=== PATIENT | male | born 1940 | race Caucasian/White ===

== ENCOUNTER 2017-06-22 05:31 | Inpatient (IN) | payer MEDICARE, OTHER ==
[2017-06-22] MEDS ORDERED: Nitroglycerin 2% Ointment 1 INCH/1 GM Packet ONE (06:48)
[2017-06-22 06:50] LABS: Prothrombin Time 13.1 SEC (12.0-14.7)
[2017-06-22 07:07] LABS: Anion Gap 15 mmol/L (10-20); BUN (Urea Nitrogen) 18 mg/dL (8.4-25.7); Calc. Creatinine Clearance 0 mL/min (70-130); Calcium 9.4 mg/dL (7.8-10.44); Carbon Dioxide 20 mmol/L (23-31); Chloride 105 mmol/L (98-107); Estimated GFR-MDRD 52; Glucose 149 mg/dL (83-110); Potassium 3.5 mmol/L (3.5-5.1); Sodium 136 mmol/L (136-145)
[2017-06-22 08:03] LABS: Troponin I 126.567 ng/mL (< 0.028)
[2017-06-22] MEDS ORDERED: Heparin 10,000 UNITS/ 10 ML VIAL SLOW IVP SCH (08:30)
[2017-06-22] MEDS ORDERED: Heparin 25,000 units/D5W 500 ML IVPB SCH (08:30)
[2017-06-22 08:58] LABS: Cardiac Risk 6.9 (Less than 4.5)
[2017-06-22] MEDS ORDERED: Sodium Chloride 0.9% 1,000 ML IV SCH (09:00)
[2017-06-22] MEDS ORDERED: Amiodarone HCl 150 MG in Dextrose 5% in Water 100 ML IVPB SCH ×2 (09:15)
[2017-06-22] MEDS ORDERED: Amiodarone In Dextrose 200 ML IVPB SCH (09:15)
--- NOTE | 2017-06-22 09:20 | HP ---
PRIMARY CARE PHYSICIAN: Dr. Betito Medina in [place]. REASON FOR ADMISSION: Transfer from [facility] after a STEMI. HISTORY OF PRESENT ILLNESS: A 76-year-old male with a history of hypertension, benign enlargement of prostate, gastroesophageal reflux disease who was transferred from [facility] for STEMI. This patient reports that about [id number] months ago he was experiencing epigastric discomfort on and off basis. His primary care physician was thinking that the patient has gastroesophageal reflux disease and he was instructed to take Nexium which he was taking on a regular basis, but the patient was not feeling any significant better. The day before yesterday the patient was having more indigestion in epigastric area which was intermittent and the patient has to stop working and he has to go home and rest for a period of time. Routine medication was not helping as well. The patient was feeling that something was wrong and the next day he made appointment with Dr. Betito Medina who prescribed another 2 medications as well as liquid Carafate. The patient only took those oral medicine, but he did not take any liquid Carafate and he was still not feeling normal. He went to sleep and around midnight he woke up and at that time he was feeling severe epigastric discomfort as well as palpitations and dizziness. He went to his other house by driving and he took Pepto-Bismol that did not improve his symptoms. He started feeling shortness of breath and that is why he decided to go to local emergency room. The patient was diagnosed with a STEMI in anteroseptal anterolateral wall. There was no cardiac cath facility and that is why patient was given TNK 50 mg IV push around 2:30 a.m. The patient was given DuoNeb therapy x2, morphine 2 mg , Zofran 8 mg, Lasix 40 mg, metoprolol 5 mg IV push, heparin bolus was given and subsequently heparin drip was started. The patient was also given some IV fluid. After this treatment, the patient was feeling better and he was transferred to our hospital. ER physician discussed with Cardiology and Cardiology recommended to admit under [facility] and they will consult. When I saw this patient, at that time he is feeling still a little bit epigastric discomfort and lower chest discomfort, but he is feeling subjectively better. He denies any pleurisy. He denies any orthopnea or dizziness. He denies any lower extremity edema. He denies any focal motor or sensory symptoms. He denies any fever, chills, flu-like illness. He denies any hemoptysis. He denies any bleeding from any site. He denies any melena or hematochezia. Today, he was also found with atrial fibrillation with RVR and the patient does not have any recall of having atrial fibrillation in past. REVIEW OF SYSTEMS: The following complete review of systems was negative, unless otherwise mentioned in the HPI or below: Constitutional: Weight loss or gain, ability to conduct usual activities. Skin: Rash, itching. Eyes: Double vision, pain. ENT/Mouth: Nose bleeding, neck stiffness, pain, tenderness. Cardiovascular: Palpitations, dyspnea on exertion, orthopnea. Respiratory: Shortness of breath, wheezing, cough, hemoptysis, fever or night sweats. Gastrointestinal: Poor appetite, abdominal pain, heartburn, nausea, vomiting, constipation, or diarrhea. Genitourinary: Urgency, frequency, dysuria, nocturia. Musculoskeletal: Pain, swelling. Neurologic/Psychiatric: Anxiety, depression. Allergy/Immunologic: Skin rash, bleeding tendency. Please see my HPI for pertinent positive and negative. All other review of systems reviewed and negative except as mentioned in the HPI. ALLERGIES: AMOXICILLIN. CURRENT HOME MEDICATIONS: Norvasc 5 mg p.o. daily, Mobic 15 mg daily, Bystolic 10 mg daily. Protonix 20 mg daily, Flomax 0.4 mg p.o. daily. PAST MEDICAL HISTORY: Osteoarthritis, hypertension, gastroesophageal reflux disease, benign enlargement of prostate, obesity. PAST SURGICAL HISTORY: Spinal surgery. PAST PSYCHIATRIC HISTORY: Reviewed and negative. SOCIAL HISTORY: The patient is and lives at home with his . No history of tobacco, alcohol or illicit drug abuse. FAMILY HISTORY: No strong family history of premature coronary artery disease, stroke or cancer. EMERGENCY ROOM COURSE: Patient was given DuoNeb therapy x2, morphine 2 mg IV push, Zofran 8 mg IV push, Lasix 40 mg IV push, metoprolol 5 mg IV push, TNK 50 mg IV push, heparin 4000 unit bolus and 1000 unit per hour IV fluid. The patient also received nitropatch in our emergency room. PHYSICAL EXAMINATION: VITAL SIGNS: Currently, blood pressure 187/117, pulse 105 irregular, respiratory rate 18, temperature 97.8, saturation 96% on 3 liter oxygen, weight 93.1 kilograms. GENERAL: The patient is currently alert, awake, no obvious acute distress. HEENT: Head; normocephalic, atraumatic. Eyes: Pupils round, reactive to light. Extraocular muscle intact. ENT: Oropharynx within normal limits. Moist mucous membranes. No oral lesion, no pharyngeal erythema, no exudate. NECK: Supple, no JVD, no thyromegaly, no carotid bruit, no jugular venous distention. LUNGS: Clear to auscultation without any rhonchi or rales. CARDIAC: S1, S2 irregular. Soft systolic murmur noted, no gallop, no rub. ABDOMEN: Obesity present. Bowel sounds present, nontender, nondistended. No organomegaly, no mass, no suprapubic tenderness. BACK: Unremarkable, no CVA tenderness. EXTREMITIES: Upper extremity passive movement of all joints are normal. Lower extremities: No edema. Good peripheral pulsation. SKIN: No skin rash. HEMATOLOGICAL: No lymphadenopathy. PSYCHIATRIC: Normal affect. SIGNIFICANT LABS: EKG showing atrial fibrillation with rapid ventricular response. [facility]. EKG showing ST elevation in anteroseptal leads. Chest x-ray at [place] showed cardiomegaly and pulmonary vascular congestion. Troponin I of 126.56. Sodium 136, potassium 3.5, chloride 105, carbon dioxide 20, anion gap 15, BUN 18, creatinine 1.34, glucose 149, calcium 9.4. INR 1.0. LFTs, alkaline phosphatase was 109, AST 37, ALT 39. Protein 9.2, albumin 4.5. WBC normal, hemoglobin normal, platelet count 239. ASSESSMENT AND PLAN: 1. Acute ST elevation myocardial infarction anteroseptal lead status post TNK and metoprolol 5 mg IV push. At this point, we will continue heparin drip. We will check lipid profile. Cardiology consulted. The patient will go for cardiac catheterization. We will admit him in CCU. We will closely monitor. We will also continue the nitropatch q.8 hourly and aspirin 325 mg p.o. daily. We will start Lipitor 80 mg p.o. at bedtime. Based on hemodynamics we will adjust blood pressure medication. 2. Atrial fibrillation with rapid ventricular response, currently rate is under control. The patient will need chronic anticoagulation therapy upon discharge. Echocardiography ordered. Cardiology consulted. The patient is already on heparin drip. We will monitor PTT as per protocol. 3. Chronic kidney disease stage 3. We will monitor renal function and avoid nephrotoxin agents. 4. Gastroesophageal reflux disease. We will continue Protonix 40 mg p.o. daily. 5. Hypertension. We will continue Bystolic 10 mg p.o. daily and Norvasc 5 mg p.o. daily if blood pressure permits. 6. Benign enlargement of prostate. We will continue Flomax 0.4 mg p.o. daily. 7. Deep venous thrombosis prophylaxis. The patient is already on heparin drip. 8. Gastrointestinal prophylaxis. The patient is already on Protonix therapy. 9. Code status: The patient is FULL CODE. The patient's is surrogate decision maker. 10. Dyslipidemia: start statin therapy. Disposition plan based on clinical course. We are expecting the patient's stay in hospital more than 2 midnights. Plan of care discussed with the patient and family member at bedside. MTDD
--- NOTE | 2017-06-22 09:27 | RAD ---
CHEST 1 VIEW: Date: 06/22/17 HISTORY: Chest pain. Dyspnea. FINDINGS: No comparison. The cardiac silhouette is magnified and upper limits of normal in size. Pulmonary vasculature is uppe r limits of normal and favored to account for mild parenchymal opacity scattered throughout each lung . No lobar consolidation or evidence of pneumothorax. Mediastinum is midline. Postoperative changes cervical spine. IMPRESSION: Borderline cardiomegaly and pulmonary vascular prominence. No florid edema is evident. POS: [facility]
[2017-06-22] MEDS ORDERED: HYDROcodone/Acetaminophen 5/325 mg Tablet PO PRN (09:30)
[2017-06-22] MEDS ORDERED: Acetaminophen 325 MG TAB PO PRN (09:30)
[2017-06-22] MEDS ORDERED: Artificial Tears 18 DROP/0.9 ML EA EYE PRN (09:30)
[2017-06-22] MEDS ORDERED: Ondansetron HCl/PF 4 MG/2 ML Vial IVP PRN (09:30)
[2017-06-22] MEDS ORDERED: Nitroglycerin 0.4 MG TAB (25 Tab Bottle) SL PRN ×3 (09:30→13:53)
[2017-06-22] MEDS ORDERED: hydrALAZINE 20 MG/ML VIAL SLOW IVP PRN (09:30)
[2017-06-22] MEDS ORDERED: Ondansetron ODT 4 MG TAB PO PRN (09:30)
[2017-06-22] MEDS ORDERED: Chloraseptic Spray 180 ml Bottle PO PRN (09:30)
[2017-06-22] MEDS ORDERED: Diabetic Tussin 200 MG/10 ML UDCUP PO PRN (09:30)
[2017-06-22] MEDS ORDERED: Milk Of Magnesia 30 ML UDCUP PO PRN (09:30)
[2017-06-22] MEDS ORDERED: Mag-Al 1200 mg/1200 mg/30 ML UDCUP PO PRN (09:30)
[2017-06-22] MEDS ORDERED: Eucerin (Mineral Oil/Petrolatum,White) 30 gm Jar TOP PRN (09:30)
[2017-06-22] MEDS ORDERED: Senokot 8.6 MG TAB PO PRN (09:30)
[2017-06-22] MEDS ORDERED: Loratadine 10 MG TAB PO PRN (09:30)
[2017-06-22] MEDS ORDERED: Sodium Chloride 0.65% Nasal 44 ML BOT EA NARE PRN (09:30)
[2017-06-22] MEDS ORDERED: Loperamide HCl 2 MG CAP PO PRN (09:30)
[2017-06-22 09:52] LABS: Hemoglobin 17.6 g/dL (14.0-18.0); Platelet Count 225 thou/uL (130-400)
[2017-06-22] MEDS: Amiodarone HCl 450 MG, Admixture Fee 1 EACH in Dextrose 5% in Water 250 ML IVPB SCH ×6 (10:29→17:25)
[2017-06-22 10:37] LABS: Troponin I 219.602 ng/mL (< 0.028)
[2017-06-22 11:48] LABS: Bilirubin Negative (Negative); Blood, Urine Moderate (Negative); Clarity CLEAR (Clear); Glucose, Urine (Dipstick) Negative (Negative); Leukocyte Negative (Negative); Nitrite Negative (Negative); Protein, Urine (Dipstick) 100 mg/dL (Neg-Trace); Specific Gravity, Urine 1.016 (1.002-1.036); Urobilinogen 0.2 mg/dL (0.2-1.0)
[2017-06-22 11:50] LABS: Bacteria/HPF None Seen HPF (None Seen); Hyaline Casts/LPF 7-10 HYALINE CAST LPF (0-3 Hyaline); Pathc Cast-AUWi Flag 2.16 (0-2.49); RBC/HPF 0-3 HPF (0-3); Squamous Epithelial 0-3 HPF (0-3)
[2017-06-22] MEDS: Nitroglycerin 2% Ointment 1 INCH/1 GM Packet TOP SCH ×2 (12:06→17:04)
[2017-06-22 12:07] LABS: PTT 34.3 SEC (22.9-36.1)
[2017-06-22] MEDS ORDERED: Heparin 10,000 UNITS/1 ML VIAL ONE (12:23)
[2017-06-22] MEDS ORDERED: Lidocaine 1% (PF) 30 ML VIAL ONE (12:24)
[2017-06-22] MEDS ORDERED: Midazolam HCl 2 mg/2 ml Vial ONE (12:58)
[2017-06-22] MEDS ORDERED: Fentanyl 250 MCG/5 ML VIAL ONE (12:58)
[2017-06-22] MEDS ORDERED: Iopamidol 370 76% 100 ML VIAL ONE (13:26)
[2017-06-22] MEDS ORDERED: Iopamidol 370 76% 50 ML VIAL FS ONE (13:26)
--- NOTE | 2017-06-22 13:51 | CON ---
DATE OF CONSULTATION: 06/22/2017 HISTORY: Rinku Fontaine is a 76-year-old white male who denies any previous cardiac problems. 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 He underwent stress testing and apparently this was normal. Over the last few weeks, he has begun to notice exertional chest pressure associated with shortness of breath and diaphoresis. These episodes would be relieved in 15 minutes with rest. They seem to be getting somewhat worse and he was seen by his primary physician and EKG was unremarkable. He was seen yesterday as well as approximately 1 week ago. Then, last night at approximately 7:00 p.m., he began to notice increasing shortness of breath as well as some chest pressure. This became progressively worse and ultimately he went to the emergency room in [place]. When he arrived there, he was extremely short of breath, very agitated, having difficulty talking due to shortness of breath. Apparently, chest x-ray revealed pulmonary edema, although I do not have that x-ray available. He was placed on oxygen, given DuoNebs, morphine 2 mg IV, Zofran 8 mg IV, Lasix 40 mg IV, metoprolol 5 mg IV, aspirin 324. His EKG revealed lateral infarction with [address] elevation in 1 L, V4 and V6 and 3 mm of elevation in V5. There is significant baseline artifact and so difficult to assess the exact amount of ST elevation. With this finding, Dr. Haley was consulted and due to the distance from [place] TNKase 50 mg given IV followed by heparin 4000 and a bolus 1000 units per hour drip. He was given sublingual nitroglycerin. At the present time, he states that his dyspnea and chest discomfort have improved. He was to be transferred by air; however, apparently, there was weather issue and so he was transferred by ground. It is of note that his blood pressure when he arrived in [place] was 220/118 and he was in atrial fibrillation with fast ventricular response. He continues to be in atrial fibrillation at the present time. PAST MEDICAL HISTORY: Hypertension. He states that he has been on cholesterol medication in the past and then he was told that he did not have high cholesterolaand the medicine was stopped. He denies any history of diabetes. He does have obstructive sleep apnea, GERD, diverticulosis, and benign prostatic hypertrophy. HOME MEDICATIONS: Include nebivolol unknown dose daily, Flomax 0.4 mg daily, and acetaminophen/hydrocodone p.r.n. ALLERGIES: PENICILLIN. OPERATIONS: Cataract surgery and neck surgery in 2017. SOCIAL HISTORY: He smoked two cigarettes up to 2 packs per day, but stopped 14 years ago. He occasionally drinks. He is a retired [employer] worker. FAMILY HISTORY: Negative for coronary artery disease. REVIEW OF SYSTEMS: Twelve point review of systems unremarkable. PHYSICAL EXAMINATION: VITAL SIGNS: Blood pressure 140/92, pulse of 110, atrial fibrillation on the monitor. HEENT: PERRL. NECK: Supple. LUNGS: Chest reveals crackles at the right base. CARDIAC: S1 and S2 are distant. No murmurs heard. There is no S3 or S4. Carotid upstrokes normal without bruits. ABDOMEN: Obese. Normal bowel sounds, no tenderness. EXTREMITIES: Revealed no clubbing, cyanosis or edema. NEUROLOGIC: Grossly intact. SKIN: Warm and dry. LABORATORY DATA: From [place], sodium 145, potassium 3.2, chloride 104, carbon dioxide 19, BUN 17.0, creatinine 1.5. AST and ALT are normal. CK 589. CK-MB 9.0. Troponin I 1.522. BNP 1130.6, hemoglobin 20.7, hematocrit 58.7, white count 17.77, platelets 239,000. D-dimer 0.75. IMPRESSION: 1. Anterolateral ST-elevation myocardial infarction. 2. Pulmonary edema. 3. Atrial fibrillation with fast ventricular response which he denies having any arrhythmias in the past. 4. Hypertension. 5. Questionable hypercholesterolemia. 6. Former smoker. 7. Obstructive sleep apnea. 8. Possible polycythemia. 9. Benign prostatic hypertrophy. 10. Diverticulosis. 11. Gastroesophageal reflux disease. 12. Renal insufficiency. PLAN: The situation was discussed with the patient and his . Echocardiogram will be performed to reassess left ventricular function. Chest x -ray will be repeated. It was recommended that probably later today to go to the geoscience laboratory technician. Risks of catheterization were discussed including , myocardial infarction, dye reaction, vascular injury, CVA, transfusion, limb loss, renal loss, etc. Also, risks of intervention with stent placement were discussed including , myocardial infarction, emergency CABG, restenosis, stent thrombosis, vessel perforation, etc. With atrial fibrillation and the possible need for long-term anticoagulation, I will place a bare-metal stent. LUIS
[2017-06-22] MEDS ORDERED: traMADol HCl 50 MG TAB PO PRN (13:53)
[2017-06-22] MEDS ORDERED: Acetaminophen/Codeine 30-300mg Tablet PO PRN ×2 (13:53)
[2017-06-22] MEDS ORDERED: Sodium Chloride 0.9% 200 ML IV SCH (14:00)
[2017-06-22] MEDS: Sodium Chloride 0.9% 1,000 ML IV SCH ×2 (14:42→17:28)
[2017-06-22] MEDS ORDERED: Furosemide 40 MG/4 ML VIAL SLOW IVP SCH (14:45)
--- NOTE | 2017-06-22 15:17 | CON ---
DATE OF CONSULTATION: 06/22/2017 HISTORY OF PRESENT ILLNESS: Mr. Fontaine is a 76-year-old gentleman, who has no previous cardiac hist ory that he actually states that he was evaluated in [place] by liquor bridge operator, who put him through num erous tests and told him he had a very healthy heart approximately 2 years ago. He has had exertiona l chest pressure and shortness of breath and diaphoresis recently. This has increased to the point o f where he could not breathe even talk yesterday evening and was brought to the [facility]. He was given TNK at that time and diuresed. He feels much better since he has been admitted. He is also in atrial fibrillation, currently on amiodarone drip. He underwent cardiac catheterization with known severe 3-vessel disease. His ejection fraction is ap proximately 25% to 30% on ventriculogram. Troponin is 219. His EKGs showed atrial fibrillation, so the ST segments were very difficult to eval uate. Currently, he is resting comfortably in bed on amiodarone with no chest pain, pressure, or john rtness of breath. PAST MEDICAL HISTORY: 1. Hypertension. 2. Gastroesophageal reflux disease. PAST SURGICAL HISTORY: Back surgery and cataract surgery. HOME MEDICATIONS: 1. Nebivolol. 2. Flomax 0.4 mg q. day. 3. Tylenol with codeine p.r.n. ALLERGIES: PENICILLIN. SOCIAL HISTORY: He stopped smoking long time ago. He occasionally uses alcohol. 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 He is and accompanied by his for 41 years. REVIEW OF SYSTEMS: Ten-point review of systems performed and is negative except as above. PHYSICAL EXAMINATION: GENERAL: Well-developed, well-nourished man resting comfortably in bed. VITAL SIGNS: Heart rate is irregularly irregular. His rate is 80-100, blood pressure is 118/85, and oxygen saturations are 96% on 2 liters nasal cannula. HEENT: Sclerae nonicteric. Pupils equally round bilaterally. NECK: Supple. No carotid bruits. LUNGS: Chest is clear bilaterally with an occasional rales. HEART: Rhythm is irregularly irregular. There are no murmurs. ABDOMEN: Soft and nontender. EXTREMITIES: No edema. VASCULAR: Palpable carotid, radial, femoral, and dorsalis pedis pulses bilaterally. VENOUS: There are no venous varicosities or venous stasis changes. He has not had any venous proced ures. LABORATORY DATA: Potassium is 3.5, creatinine is 1.34, troponin 219. Hemoglobin is 17.6, platelet c ount is 225,000. PT/INR is 1.0. Chest x-ray has been reviewed. I also reviewed his catheterization films with Dr. Cook. ASSESSMENT AND PLAN: This is a 76-year-old gentleman, who presented with myocardial infarction, atri al fibrillation, and pulmonary edema. He has been diuresed and feels much better from a pulmonary st andpoint, he is able to carry on a long conversation without stopping. His atrial fibrillation is cu rrently trying to be controlled with amiodarone loading dose. He has 3-vessel disease on cath with a n ejection fraction of 25% to 30%. Coronary artery bypass grafting has been recommended. Risks, aleta efits, and options have been outlined with the patient and he is agreeable to proceed. We will plan for surgery on Sunday after we have a chance to further diurese him and let him recover from his myoc ardial infarction.
[2017-06-22 15:37] LABS: Hemoglobin A1c 5.3 % (4.0-6.0)
[2017-06-22 16:14] LABS: Critical Call Chem Troponin I RESULT DECREASING; Troponin I 204.915 ng/mL (< 0.028)
[2017-06-22] MEDS ORDERED: Carvedilol 6.25 MG TAB PO SCH (17:00)
[2017-06-22] MEDS: Carvedilol 3.125 MG TAB PO SCH (17:04)
[2017-06-22] MEDS: Atorvastatin Calcium 40 MG TAB PO SCH (20:11)
[2017-06-22] MEDS: Zolpidem Tartrate 5 MG TAB PO PRN (20:11)
[2017-06-23] MEDS: Nitroglycerin 2% Ointment 1 INCH/1 GM Packet TOP SCH ×4 (00:07→17:35)
[2017-06-23 04:31] LABS: #Eosinphils 0.2 thou/uL (0.0-0.7); #Lymphocytes 2.4 thou/uL (1.20-3.40); #Monocytes 1.7 thou/uL (0.11-0.59); #Neutrophils 8.9 thou/uL (1.40-6.50); %Basophils 0.3 % (0.0-1.0); %Eosinophils 1.1 % (0.0-10.0); %Monocytes 12.6 % (0.0-10.0); %Neutrophils 67.9 % (42.0-75.0); Hemoglobin 15.5 g/dL (14.0-18.0); Mean Corpuscular HGB CONC 34.3 g/dL (32.0-36.0); Mean Corpuscular Hemoglobin 31.8 pg (27.0-31.0); Mean Platelet Volume 8.4 fL (7.4-10.4); Platelet Count 207 thou/uL (130-400); RBC Distribution Width 12.5 % (11.5-14.5); Red Blood Cell (RBC) Count 4.87 mill/uL (4.70-6.10); White Blood Cell (WBC) Count 13.1 thou/uL (4.8-10.8)
[2017-06-23 04:55] LABS: ALT (SGPT) 51 U/L (8-55); AST (SGOT) 169 U/L (5-34); Albumin 3.5 g/dL (3.4-4.8); Alkaline Phosphatase 44 U/L (40-150); Anion Gap 13 mmol/L (10-20); BUN (Urea Nitrogen) 21 mg/dL (8.4-25.7); Bilirubin, Total 1.1 mg/dL (0.2-1.2); Calc. Creatinine Clearance 58 mL/min (70-130); Calcium 8.6 mg/dL (7.8-10.44); Carbon Dioxide 24 mmol/L (23-31); Chloride 105 mmol/L (98-107); Estimated GFR-MDRD 45; Globulin 2.8 g/dL (2.4-3.5); Glucose 111 mg/dL (83-110); Potassium 3.5 mmol/L (3.5-5.1); Protein, Total 6.3 g/dL (5.8-8.1); Sodium 138 mmol/L (136-145)
[2017-06-23] MEDS: Tamsulosin HCl 0.4 MG CAP PO SCH (08:30)
[2017-06-23] MEDS: Aspirin 325 MG TAB PO SCH (08:30)
[2017-06-23] MEDS: Carvedilol 3.125 MG TAB PO SCH (08:30)
[2017-06-23] MEDS ORDERED: Nebivolol HCl 5 MG TAB PO SCH (09:00)
--- NOTE | 2017-06-23 09:35 | RAD ---
CHEST 1 VIEW: HISTORY: A 76-year-old male with a history of pulmonary edema. COMPARISON: 06/22/17. FINDINGS: Monitor leads overlie the chest. Again noted is some mild vascular congestion. No confluent pneumon ia, overt edema, or pleural effusion. IMPRESSION: Overall stable chest with mild vascular congestion. No evidence for edema or other acute process. POS: [facility]
[2017-06-23] MEDS: Amiodarone HCl 450 MG, Admixture Fee 1 EACH in Dextrose 5% in Water 250 ML IVPB SCH ×3 (11:04)
[2017-06-23] MEDS ORDERED: Polyethylene Glycol 3350 17 GM Packet PO PRN (12:26)
[2017-06-23] MEDS ORDERED: Bisacodyl 10 MG SUPP PR PRN (12:28)
[2017-06-23] MEDS ORDERED: Docusate 100 MG CAP PO SCH (12:30)
[2017-06-23] MEDS ORDERED: Ipratropium Bromide 2.5 ml Neb NEB PRN (13:44)
[2017-06-23] MEDS ORDERED: Potassium Chloride 20 MEQ TAB PO SCH ×2 (14:30→20:45)
[2017-06-23] MEDS ORDERED: Furosemide 40 MG/4 ML VIAL SLOW IVP SCH (14:30)
[2017-06-23] MEDS ORDERED: Carvedilol 3.125 MG TAB PO SCH (14:45)
[2017-06-23] MEDS ORDERED: ALPRAZolam 0.25 MG TAB PO PRN (15:00)
--- NOTE | 2017-06-23 16:13 | RAD ---
CHEST ONE VIEW: 06/23/17 HISTORY: 76-year-old male with history of shortness of breath. COMPARISON: 06/23/17. There is cardiomegaly with some worsening bilateral vascular congestion when compared to the prior st udy. No new confluent process. IMPRESSION: Worsening vascular congestion with some probable minimal early bilateral pulmonary edema. No confluen t pneumonia. Continued short term followup. POS: [facility]
--- NOTE | 2017-06-23 17:00 | CON ---
DATE OF CONSULTATION: 06/23/2017 HISTORY OF PRESENT ILLNESS: Rinku Fontaine is a 76-year-old obese gentleman, who presented with ind igestion, epigastric pain, shortness of breath, subsequently chest pain and was taken to the [facility] where he was given, apparently he tells me thrombolytics. He underwent emergency cardiac catheterization by Dr. Cook because of severe coronary artery dise ase with septal hypokinesia. He is scheduled for surgery on Sunday. Former smoker, a pack a day, bu t he said he quit smoking many years ago, 20. He underwent a cardiac workup about a year and a half ago in [place], including stress test, etc., which were normal. He went to see his primary care phys elyssa 48 hours ago with epigastric pain, thought it was indigestion, given some new medication for in digestion. He went to eat dinner, came back home, had worsening indigestion, shortness of breath, pa lpitation, diaphoresis, taken to the ER and transferred over here. His initial EKG showed lateral infarct. Dr. Haley was consulted yesterday and was given 50 mg IV followed by heparin bolus and a drip. PAST MEDICAL HISTORY: Pertinent for sleep apnea, noncompliant diabetes, reflux, BPH, low cholesterol . MEDICINES FROM HOME: Includes Zanaflex, Flomax 0.4, omeprazole 20, and meloxicam 15, Tylenol. ALLERGIES: AMOXICILLIN. SOCIAL/FAMILY HISTORY: He is a construction equipment mechanic. FAMILY HISTORY: Unremarkable. HABITS: Alcohol, tobacco as noted. REVIEW OF SYSTEMS: Ten-point negative. PHYSICAL EXAMINATION: VITAL SIGNS: No distress. Sats are 96%, blood pressure 153/84, respiratory rate 20. CHEST: With no wheezing or crackles. CARDIAC: Normal S1 and S2. ABDOMEN: Soft, no masses. LABORATORY DATA: White count 13,000, H and H 15 and 45, platelet count is normal. Creatinine is 1.5 . X-ray is normal. IMPRESSION: 1. Status post myocardial infarction, status post cardiac catheterization, severe coronary artery di sease. 2. Azotemia. 3. Tobacco abuse. 4. Sleep apnea. Order a TSH. I encouraged to have a repeat sleep study. He had a CPAP titration after he has had hi s surgery. I encouraged him to lose weight. We will follow while in the ICU. Consultation note has noticed. A 70 minutes, 50% direct patient care.
[2017-06-23] MEDS: Carvedilol 6.25 MG TAB PO SCH (17:07)
[2017-06-23] MEDS: hydrALAZINE 25 MG TAB PO SCH (20:06)
[2017-06-23] MEDS: Atorvastatin Calcium 40 MG TAB PO SCH (20:07)
[2017-06-23] MEDS: Docusate 100 MG CAP PO SCH (20:07)
[2017-06-23] MEDS: Enoxaparin Sodium 100 MG/ML SYRINGE SC SCH (20:07)
--- NOTE | 2017-06-23 20:09 | PDOC.PN ---
- Subjective Encounter Start Date: 06/23/17 Encounter Start Time: 13:20 Patient seen and examined. No new complaints. No overnight events - Objective Resuscitation Status: Resuscitation Status FULL:Full Resuscitation MAR Reviewed: Yes Vital Signs & Weight: Vital Signs (12 hours) Temp Pulse Pulse Pulse Resp BP BP 06/23/17 20:06 73 06/23/17 18:38 73 22 H 06/23/17 17:07 170/81 H 06/23/17 16:08 71 06/23/17 16:00 98.3 F 06/23/17 15:15 76 06/23/17 12:00 98.3 F 06/23/17 10:15 80 81 156/70 H BP Pulse Ox Pulse Ox Pulse Ox 06/23/17 20:06 06/23/17 18:38 94 L 06/23/17 17:07 06/23/17 16:08 06/23/17 16:00 94 L 06/23/17 15:15 06/23/17 12:00 06/23/17 10:15 173/95 H 95 96 Weight Weight 217 lb 9.54 oz Most Recent Monitor Data Heart Rate from ECG 73 NIBP 147/89 NIBP BP-Mean 96 Respiration from ECG 34 SpO2 93 I&O: 06/22/17 06/23/17 06/24/17 06:59 06:59 06:59 Intake Total 3764 1170 Output Total 2660 1540 Balance 1104 -370 Result Diagrams: 06/23/17 03:44 06/24/17 04:10 Radiology Reviewed by me: Yes (CXR - Pulm Vas congestion) EKG Reviewed by me: Yes (Tele SR) Phys Exam - Physical Examination Constitutional: NAD HEENT: moist MMs Neck: no JVD Respiratory: no wheezing, no rhonchi Scat rales at bases, Symmetrical Cardiovascular: RRR, no rub no heaves/pulsations Gastrointestinal: soft, non-tender, no distention, positive bowel sounds Musculoskeletal: no edema Neurological: non-focal, moves all 4 limbs Psychiatric: A&O x 3 Dx/Plan - Plan DVT proph w/lovenox, DVT proph w/SCDs IMPRESSION: 1. Acute [place] 2. Atrial fibrillation with RVR - on Amiodarone drip, now in SR, on full dose Lovenox 3. Chronic systolic heart failure / Ischemic cardiomyopathy 4. Obesity BMI 33 / CKD 3 / HTN / BPH 5. Other issues per H&P PLAN: * Gentle diuretics due to pulm vas congestion * Cont ASA/BB/Statins * Hold ACEI/ARB/Aldactone due to Renal insuf. * Cardio/CT following * Cont current meds as below * AM labs Review of Systems - Review of Systems Respiratory: negative: Cough, Dry, Shortness of Breath, Hemoptysis, SOB with Excertion, Pleuritic Pain, Sputum, Wheezing Cardiovascular: negative: chest pain, palpitations, orthopnea, paroxysmal nocturnal dyspnea, edema, light headedness - Medications/Allergies Allergies/Adverse Reactions: Allergies Allergy/AdvReac Type Severity Reaction Status Date / Time amoxicillin Allergy Verified 09/05/16 08:33 Medications: Current Medications Acetaminophen (Tylenol) 650 mg PO Q4H PRN PRN Reason: Headache/Fever or Pain Acetaminophen/Codeine Phosphate (Tylenol #3) 1 tab PO Q4H PRN PRN Reason: Mild Pain (1-3) Acetaminophen/Codeine Phosphate (Tylenol #3) 2 tab PO Q4H PRN PRN Reason: Moderate Pain (4-6) Hydrocodone Bitart/Acetaminophen ([place] 5/325) 1 tab PO Q4H PRN PRN Reason: Moderate Pain (4-6) Al Hydroxide/Mg Hydroxide (Maalox) 30 ml PO Q6H PRN PRN Reason: Heartburn or Indigestion Albuterol/Ipratropium (Duoneb) 3 ml NEB [id number] [facility] Last Admin: 06/23/17 18:38 Dose: 3 ml Alprazolam (Xanax) 0.25 mg PO QIDPRN PRN PRN Reason: Anxiety/Insomnia Last Admin: 06/23/17 15:10 Dose: 0.25 mg Artificial Tears (Tears Naturale) 0 drop EA EYE PRN PRN PRN Reason: Dry Eyes Aspirin (Aspirin) 325 mg PO DAILY [facility] Last Admin: 06/23/17 08:30 Dose: 325 mg Atorvastatin Calcium (Lipitor) 40 mg PO QPM [facility] Last Admin: 06/23/17 20:07 Dose: 40 mg Bisacodyl (Dulcolax) 10 mg [place] DAILYPRN PRN PRN Reason: Constipation Carvedilol (Coreg) 6.25 mg PO BID-[facility] Last Admin: 06/23/17 17:07 Dose: 6.25 mg Docusate Sodium (Colace) 100 mg PO BID [facility] Last Admin: 06/23/17 20:07 Dose: 100 mg Enoxaparin Sodium (Lovenox) 100 mg SC 0900,2100 [facility] Last Admin: 06/23/17 20:07 Dose: 100 mg Guaifenesin (Robitussin Sf) 200 mg PO Q4H PRN PRN Reason: Cough Hydralazine HCl (Apresoline) 10 mg SLOW IVP Q4H PRN PRN Reason: Systolic BP > 180 Hydralazine HCl (Apresoline) 25 mg PO BID [facility] Last Admin: 06/23/17 20:06 Dose: 25 mg Amiodarone HCl 450 mg/Miscellaneous Medication 1 each/ Dextrose/Water 259 mls @ 0 mls/hr IVPB INF [facility]; As Directed PRN Reason: Protocol Last Admin: 06/23/17 11:04 Dose: 259 mls Levofloxacin 750 mg/ Device 150 mls @ 100 mls/hr IVPB Q24HR [facility] Last Admin: 06/23/17 17:08 Dose: 150 mls Ipratropium [place] (Atrovent) 2.5 ml NEB [id number] PRN PRN Reason: SOB &/or Wheezing Loperamide HCl (Imodium) 2 mg PO PRN PRN PRN Reason: Diarrhea/Loose Stools Loratadine (Claritin) 10 mg PO DAILYPRN PRN PRN Reason: Sinus Symptoms Magnesium Hydroxide (Milk Of Magnesium) 30 ml PO DAILYPRN PRN PRN Reason: Constipation Mineral Oil/White Petrolatum (Eucerin Cream) 0 gm TOP BIDPRN PRN PRN Reason: Dry Skin Nitroglycerin (Nitrostat) 0.4 mg SL Q5MIN PRN PRN Reason: Chest Pain Nitroglycerin (Nitrostat) 0.4 mg SL Q5MIN PRN PRN Reason: Chest Pain Nitroglycerin (Nitro-Bid 2% Ointment) 0.5 inch TOP Q6HR [facility] Last Admin: 06/23/17 17:35 Dose: 0.5 inch Nitroglycerin (Nitrostat) 0.4 mg SL Q5MIN PRN PRN Reason: Chest Pain Ondansetron HCl (Zofran Odt) 4 mg PO Q6H PRN PRN Reason: Nausea/Vomiting Ondansetron HCl (Zofran) 4 mg IVP Q6H PRN PRN Reason: Nausea/Vomiting Pantoprazole Sodium (Protonix) 40 mg PO DAILY [facility] Last Admin: 06/23/17 08:30 Dose: 40 mg Phenol (Chloraseptic [place] 180 Ml Bot) 0 ml PO PRN PRN PRN Reason: Sore Throat Polyethylene Glycol (Miralax) 17 gm PO DAILY PRN PRN Reason: Constipation Senna (Senokot) 2 tab PO HSPRN PRN PRN Reason: Constipation Sodium Chloride ([place] Nasal [place] 0.65%) 0 ml EA NARE QIDPRN PRN PRN Reason: Nasal Congestion Tamsulosin HCl (Flomax) 0.4 mg PO DAILY [facility] Last Admin: 06/23/17 08:30 Dose: 0.4 mg Tramadol HCl (Ultram) 50 mg PO Q6H PRN PRN Reason: Moderate Pain (4-6) Zolpidem Tartrate (Ambien) 5 mg PO HSPRN PRN PRN Reason: Insomnia Last Admin: 06/22/17 20:11 Dose: 5 mg
[2017-06-24] MEDS: Nitroglycerin 2% Ointment 1 INCH/1 GM Packet TOP SCH ×5 (00:02→23:11)
[2017-06-24 04:55] LABS: Anion Gap 13 mmol/L (10-20); BUN (Urea Nitrogen) 24 mg/dL (8.4-25.7); Calc. Creatinine Clearance 59 mL/min (70-130); Calcium 8.5 mg/dL (7.8-10.44); Carbon Dioxide 24 mmol/L (23-31); Chloride 102 mmol/L (98-107); Estimated GFR-MDRD 45; Glucose 105 mg/dL (83-110); Magnesium 2.2 mg/dL (1.6-2.6); Phosphorus 2.4 mg/dL (2.3-4.7); Potassium 4.2 mmol/L (3.5-5.1); Sodium 135 mmol/L (136-145)
[2017-06-24] MEDS: Furosemide 20 MG/2 ML VIAL SLOW IVP SCH ×2 (06:00→14:02)
[2017-06-24] MEDS: Aspirin 325 MG TAB PO SCH (08:48)
[2017-06-24] MEDS: Potassium Chloride 20 MEQ TAB PO SCH ×2 (08:48→17:03)
[2017-06-24] MEDS: Docusate 100 MG CAP PO SCH ×2 (08:48→20:31)
[2017-06-24] MEDS: Carvedilol 6.25 MG TAB PO SCH ×3 (08:49→20:30)
[2017-06-24] MEDS: hydrALAZINE 25 MG TAB PO SCH (08:50)
[2017-06-24] MEDS: Tamsulosin HCl 0.4 MG CAP PO SCH (08:50)
[2017-06-24] MEDS: Enoxaparin Sodium 100 MG/ML SYRINGE SC SCH (08:50)
[2017-06-24 09:49] VITALS: BMI 28.9
[2017-06-24] MEDS ORDERED: Diazepam 5 MG TAB PO PRN (10:17)
[2017-06-24] MEDS ORDERED: Communication Order-Pharmacy FS ONE (10:17)
[2017-06-24] MEDS ORDERED: Diabetic Tussin 200 MG/10 ML UDCUP PO PRN (11:21)
--- NOTE | 2017-06-24 19:10 | PRG ---
DATE OF SERVICE: 06/24/2017 SUBJECTIVE: Rinku Fontiane this morning is better. He said he went back on his BiPAP last night. OBJECTIVE: VITAL SIGNS: His sats are 92%, blood pressure elevated at 170/90, respirations 18. His I's and O's were 3764 in and 2660 out. CHEST: Decreased breath sounds, no wheezing or crackles. CARDIAC: Normal S1, S2. ABDOMEN: Soft. No masses. IMPRESSION: 1. Status post cardiac catheterization for cardiac disease. 2. Congestive heart failure. 3. Azotemia. 4. Sleep apnea. PLAN: Scheduled for surgery tomorrow. I have started empiric antibiotics and nebulizer treatments. We will follow.
[2017-06-24] MEDS: Amiodarone HCl 450 MG, Admixture Fee 1 EACH in Dextrose 5% in Water 250 ML IVPB SCH ×3 (19:57)
[2017-06-24] MEDS: Atorvastatin Calcium 40 MG TAB PO SCH (20:31)
[2017-06-24] MEDS ORDERED: hydrALAZINE 25 MG TAB PO SCH (21:00)
--- NOTE | 2017-06-24 22:18 | PDOC.PN ---
- Subjective Encounter Start Date: 06/24/17 Encounter Start Time: 08:30 Patient seen and examined. No new complaints. No overnight events. No CP - Objective Resuscitation Status: Resuscitation Status FULL:Full Resuscitation MAR Reviewed: Yes Vital Signs & Weight: Vital Signs (12 hours) Temp Pulse Pulse Pulse Resp BP BP 06/24/17 20:31 68 06/24/17 20:00 98.7 F 68 22 H 06/24/17 18:53 68 06/24/17 18:52 68 25 H 06/24/17 16:00 98.8 F 06/24/17 15:32 201/100 H 06/24/17 15:31 201/100 H 06/24/17 12:23 70 20 06/24/17 12:00 98.6 F 06/24/17 11:27 74 73 185/87 H BP Pulse Ox Pulse Ox Pulse Ox 06/24/17 20:31 06/24/17 20:00 93 L 06/24/17 18:53 06/24/17 18:52 95 06/24/17 16:00 06/24/17 15:32 06/24/17 15:31 06/24/17 12:23 93 L 06/24/17 12:00 06/24/17 11:27 164/80 H 93 L 93 L Weight Weight 190 lb 14.725 oz Most Recent Monitor Data Heart Rate from ECG 75 NIBP 135/56 NIBP BP-Mean 81 Respiration from ECG 22 SpO2 93 I&O: 06/23/17 06/24/17 06/25/17 06:59 06:59 06:59 Intake Total 3764 9079 454 Output Total 5522 2338 2931 Balance 9830 -017 -9499 Result Diagrams: 06/23/17 03:44 06/24/17 04:10 EKG Reviewed by me: Yes (Tele SR) Phys Exam - Physical Examination Constitutional: NAD Respiratory: no wheezing, no rhonchi Cardiovascular: RRR, no rub Gastrointestinal: soft, non-tender, positive bowel sounds Musculoskeletal: no edema Neurological: moves all 4 limbs Dx/Plan - Plan DVT proph w/lovenox, DVT proph w/SCDs IMPRESSION: 1. Acute [place] 2. Atrial fibrillation with RVR - on Amiodarone drip, now in SR, on full dose Lovenox 3. Chronic systolic heart failure / Ischemic cardiomyopathy 4. Obesity BMI 33 / CKD 3 / HTN / BPH 5. Other issues per H&P PLAN: * Cont Gentle diuretics today * Cont ASA/Coreg/Statins * ACEI/ARB/Aldactone on hold due to Renal insuf. * Cardio/CT following * Cont current meds as below * AM labs * CABG in AM Review of Systems - Review of Systems Respiratory: negative: Cough, Dry, Shortness of Breath, Hemoptysis, SOB with Excertion, Pleuritic Pain, Sputum, Wheezing Cardiovascular: negative: chest pain, palpitations, orthopnea, paroxysmal nocturnal dyspnea, edema, light headedness Gastrointestinal: negative: Nausea, Vomiting, Abdominal Pain, Diarrhea, Constipation, Melena, Hematochezia - Medications/Allergies Allergies/Adverse Reactions: Allergies Allergy/AdvReac Type Severity Reaction Status Date / Time amoxicillin Allergy Verified 09/05/16 08:33 Medications: Current Medications Acetaminophen (Tylenol) 650 mg PO Q4H PRN PRN Reason: Headache/Fever or Pain Stop: 06/25/17 08:59 Acetaminophen/Codeine Phosphate (Tylenol #3) 1 tab PO Q4H PRN PRN Reason: Mild Pain (1-3) Stop: 06/25/17 08:59 Acetaminophen/Codeine Phosphate (Tylenol #3) 2 tab PO Q4H PRN PRN Reason: Moderate Pain (4-6) Stop: 06/25/17 08:59 Hydrocodone Bitart/Acetaminophen ([place] 5/325) 1 tab PO Q4H PRN PRN Reason: Moderate Pain (4-6) Stop: 06/25/17 08:59 Al Hydroxide/Mg Hydroxide (Maalox) 30 ml PO Q6H PRN PRN Reason: Heartburn or Indigestion Stop: 06/25/17 08:59 Albuterol/Ipratropium (Duoneb) 3 ml NEB [id number] [facility] Stop: 06/25/17 08:59 Last Admin: 06/24/17 18:52 Dose: 3 ml Alprazolam (Xanax) 0.25 mg PO QIDPRN PRN PRN Reason: Anxiety/Insomnia Stop: 06/25/17 08:59 Last Admin: 06/23/17 15:10 Dose: 0.25 mg Artificial Tears (Tears Naturale) 0 drop EA EYE PRN PRN PRN Reason: Dry Eyes Stop: 06/25/17 08:59 Aspirin (Aspirin) 325 mg PO DAILY [facility] Stop: 06/25/17 08:59 Last Admin: 06/24/17 08:48 Dose: 325 mg Atorvastatin Calcium (Lipitor) 40 mg PO QPM [facility] Stop: 06/25/17 08:59 Last Admin: 06/24/17 20:31 Dose: 40 mg Bisacodyl (Dulcolax) 10 mg [place] DAILYPRN PRN PRN Reason: Constipation Stop: 06/25/17 08:59 Carvedilol (Coreg) 6.25 mg PO TID [facility] Last Admin: 06/24/17 20:30 Dose: 6.25 mg Diazepam (Valium) 5 mg PO HSPRN PRN PRN Reason: Insomnia Stop: 06/25/17 08:59 Docusate Sodium (Colace) 100 mg PO BID [facility] Stop: 06/25/17 08:59 Last Admin: 06/24/17 20:31 Dose: 100 mg Guaifenesin (Robitussin Sf) 200 mg PO Q4H PRN PRN Reason: Cough Stop: 06/25/17 08:59 Hydralazine HCl (Apresoline) 10 mg SLOW IVP Q4H PRN PRN Reason: Systolic BP > 180 Stop: 06/25/17 08:59 Last Admin: 06/24/17 15:32 Dose: 10 mg Hydralazine HCl (Apresoline) 50 mg PO BID [facility] Stop: 06/25/17 08:59 Last Admin: 06/24/17 20:31 Dose: 50 mg Amiodarone HCl 450 mg/Miscellaneous Medication 1 each/ Dextrose/Water 259 mls @ 0 mls/hr IVPB INF [facility]; As Directed PRN Reason: Protocol Stop: 06/25/17 08:59 Last Admin: 06/24/17 19:57 Dose: 259 mls Levofloxacin 750 mg/ Device 150 mls @ 100 mls/hr IVPB Q24HR [facility] Stop: 06/25/17 08:59 Last Admin: 06/24/17 17:03 Dose: 150 mls Ipratropium [place] (Atrovent) 2.5 ml NEB [id number] PRN PRN Reason: SOB &/or Wheezing Stop: 06/25/17 08:59 Loperamide HCl (Imodium) 2 mg PO PRN PRN PRN Reason: Diarrhea/Loose Stools Stop: 06/25/17 08:59 Loratadine (Claritin) 10 mg PO DAILYPRN PRN PRN Reason: Sinus Symptoms Stop: 06/25/17 08:59 Magnesium Hydroxide (Milk Of Magnesium) 30 ml PO DAILYPRN PRN PRN Reason: Constipation Stop: 06/25/17 08:59 Mineral Oil/White Petrolatum (Eucerin Cream) 0 gm TOP BIDPRN PRN PRN Reason: Dry Skin Stop: 06/25/17 08:59 Nitroglycerin (Nitro-Bid 2% Ointment) 0.5 inch TOP Q6HR [facility] Stop: 06/25/17 08:59 Last Admin: 06/24/17 18:33 Dose: 0.5 inch Nitroglycerin (Nitrostat) 0.4 mg SL Q5MIN PRN PRN Reason: Chest Pain Stop: 06/25/17 08:59 Ondansetron HCl (Zofran Odt) 4 mg PO Q6H PRN PRN Reason: Nausea/Vomiting Stop: 06/25/17 08:59 Ondansetron HCl (Zofran) 4 mg IVP Q6H PRN PRN Reason: Nausea/Vomiting Stop: 06/25/17 08:59 Pantoprazole Sodium (Protonix) 40 mg PO DAILY [facility] Stop: 06/25/17 08:59 Last Admin: 06/24/17 08:48 Dose: 40 mg Phenol (Chloraseptic [place] 180 Ml Bot) 0 ml PO PRN PRN PRN Reason: Sore Throat Stop: 06/25/17 08:59 Polyethylene Glycol (Miralax) 17 gm PO DAILY PRN PRN Reason: Constipation Stop: 06/25/17 08:59 Last Admin: 06/24/17 08:58 Dose: 17 gm Potassium Chloride (K-Dur) 20 meq PO BID-WM [facility] Stop: 06/25/17 08:01 Last Admin: 06/24/17 17:03 Dose: 20 meq Senna (Senokot) 2 tab PO HSPRN PRN PRN Reason: Constipation Stop: 06/25/17 08:59 Sodium Chloride ([place] Nasal [place] 0.65%) 0 ml EA NARE QIDPRN PRN PRN Reason: Nasal Congestion Stop: 06/25/17 08:59 Sodium Chloride (Flush - Normal Saline) 10 ml IVF PRN PRN PRN Reason: Saline Flush Stop: 06/25/17 08:59 Tamsulosin HCl (Flomax) 0.4 mg PO DAILY [facility] Stop: 06/25/17 08:59 Last Admin: 06/24/17 08:50 Dose: 0.4 mg Tramadol HCl (Ultram) 50 mg PO Q6H PRN PRN Reason: Moderate Pain (4-6) Stop: 06/25/17 08:59 Zolpidem Tartrate (Ambien) 5 mg PO HSPRN PRN PRN Reason: Insomnia Stop: 06/25/17 08:59 Last Admin: 06/22/17 20:11 Dose: 5 mg
[2017-06-24] MEDS: Zolpidem Tartrate 5 MG TAB PO PRN (22:51)
[2017-06-25] MEDS: Carvedilol 6.25 MG TAB PO SCH (05:22)
[2017-06-25] MEDS: Nitroglycerin 2% Ointment 1 INCH/1 GM Packet TOP SCH (05:22)
[2017-06-25] MEDS ORDERED: Albumin 5% 0 ML ONE (06:35)
[2017-06-25] MEDS ORDERED: Midazolam HCl 5 mg/5 ml Vial ONE (06:40)
[2017-06-25] MEDS ORDERED: Fentanyl 250 MCG/5 ML VIAL ONE ×2 (06:40)
[2017-06-25] MEDS ORDERED: Vecuronium 10 MG VIAL ONE ×3 (06:41→15:13)
[2017-06-25] MEDS ORDERED: Dexmedetomidine 200 MCG/2 ML VIAL ONE (06:41)
[2017-06-25] MEDS ORDERED: Heparin 10,000 UNITS/1 ML VIAL 30,000 UNITS in Sodium Chloride 0.9% 1,000 ML FS SCH (07:00)
[2017-06-25] MEDS ORDERED: Milrinone 10 MG/10 ML VIAL ONE (07:21)
[2017-06-25] MEDS ORDERED: PHENYLEPHRINE-NS 100 MCG/ML 10 ML SYRINGE ONE (10:17)
[2017-06-25] MEDS: Potassium Chloride 20 MEQ TAB PO SCH (10:25)
[2017-06-25] MEDS ORDERED: Nitroglycerin 50 MG/250 ML BOT 250 ML IVPB PRN (13:17)
[2017-06-25] MEDS ORDERED: Norepinephrine 8 MG/0.9% NS 250 ML IVPB PRN (13:17)
[2017-06-25] MEDS ORDERED: Hetastarch 6% 500 ML 500 ML IVPB PRN (13:17)
[2017-06-25] MEDS ORDERED: Post-Op Insulin Drip Protocol IVPB ONE (13:17)
[2017-06-25] MEDS ORDERED: Bisacodyl 5 MG TAB PO PRN (13:17)
[2017-06-25] MEDS ORDERED: Promethazine HCl 25 MG/ML VIAL IM PRN (13:17)
[2017-06-25] MEDS ORDERED: Fentanyl 100 MCG/2 ML VIAL SLOW IVP PRN (13:17)
[2017-06-25] MEDS ORDERED: Guaifenesin DM 100-10/5 ML UDCUP PO PRN (13:17)
[2017-06-25] MEDS ORDERED: Mag-Al 1200 mg/1200 mg/30 ML UDCUP PO PRN (13:17)
[2017-06-25] MEDS ORDERED: Acetaminophen 325 MG TAB PO PRN (13:17)
[2017-06-25] MEDS ORDERED: Potassium Chloride 20 MEQ/100 ML PREMIX BAG IVPB PRN (13:17)
[2017-06-25] MEDS ORDERED: Bisacodyl 10 MG SUPP PR PRN (13:17)
--- NOTE | 2017-06-25 13:26 | OP ---
DATE OF PROCEDURE: 06/25/2017 PREOPERATIVE DIAGNOSES: Coronary artery disease/status post myocardial infarction/depressed left radha tricular ejection fraction/hypertension. POSTOPERATIVE DIAGNOSES: Coronary artery disease/status post myocardial infarction/depressed left ve ntricular ejection fraction/hypertension. PROCEDURE: Coronary artery bypass grafting x5: 1. Left internal mammary artery to 1.25 mm distal LAD - good conduit, small target. 2. Reversed saphenous vein to 2.0 mm diagonal - good conduit, small target. 3. Reverse saphenous vein to 1.0 mm obtuse marginal #1 - good conduit and small target. 4. Reverse saphenous vein to 1.0 mm PDA, good conduit, small target. 5. Reverse saphenous vein to 1.0 mm posterolateral branch - good conduit, small target. SURGEON: Dr. Ap Westbrook and Dr. Boy Molina ANESTHESIA: General endotracheal, Dr. Evans Valderrama. PUMP TIME: 112 minutes. CROSS-CLAMP TIME: 63 minutes. LOW CORE TEMP: 32-degree Celsius. NURSING HOME MANAGER: Dillan Gomez. DRAINS: 24-[place] chest tubes x2. DRIPS: Levophed at 2 mcg/kg per minute. TRANSFUSIONS: None. DESCRIPTION OF DETAIL: After consent was obtained, the patient was brought to operating room and isreal gunnar supine on the operating room table. Appropriate anesthetic monitor was placed and general endotr acheal anesthesia induced. Chest, arms and legs were prepped and draped in usual sterile fashion. T he left greater saphenous vein was harvested using endoscopic technique. Wound was closed in layers and Dermabond applied to the skin. A sternotomy was performed. Left internal mammary artery was flaca vested as a pedicle graft. The patient was systemically heparinized. Distal pedicle was divided and infused with papaverine. Thymic fat and pericardium divided with electrocautery. Pericardial stay sutures were placed. Aortic and atrial cannulation was performed. After adequate heparinization, th e patient was placed on cardiopulmonary bypass. Retrograde prime was performed. Distal targets were marked. Aortic cross-clamp was applied and antegrade sanguinous cardioplegic arr est obtained. One liter of antegrade cold [place] cardioplegia was given. Topical cold solution wa s used. Reverse saphenous vein was anastomosed to OM in end to side fashion with 7-0 Prolene suture. This was a small diffusely diseased vessel and would not be suitable for redo. Anastomosis was nathaly salvatore and was hemostatic. Reverse saphenous vein was anastomosed to PL and end-to-side fashion with ru nning 7-0 Prolene suture. This was a small diffusely diseased target and would not be suitable for r carlo. Anastomosis was tested and was hemostatic. Reverse saphenous vein was anastomosed to the poste rior descending artery in end-to-side fashion with running 7-0 Prolene suture. This was a small diff usely diseased vessel and would not be suitable for redo. The saphenous to the PDA was anastomosed t o the sidewall with posterolateral branch graft. 300 mL of antegrade [place] cardioplegia was given . Saphenous vein was anastomosed to the diagonal end-side fashion with a 7.0 Prolene suture. Anasto mosis test and was hemostatic. Mammary artery was brought through a window in the pericardium and an astomosed the distal LAD in end-to-side fashion with running 7-0 Prolene suture. On release of mamma ry clamps, good hooding anastomosis and good distal flow. Pedicle screws with interrupted 6-0 Prole ne suture. Cross-clamp was removed and partial occluding clamp placed. Saphenous vein to posterolat eral and diagonal were anastomosed to the aortic root with running 6-0 Prolene suture. Partial occlu ding clamp was removed and grafts deaired. Saphenous vein to the OM was then anastomosed the sidewal l of the diagonal graft. Anastomoses were inspected for hemostasis. The patient was warmed and wean ed from cardiopulmonary bypass. After resumption of sinus rhythm, good hemodynamics, and temperature greater than 36.5, bypass was discontinued. Transfusions were given. Protamine was administered. Decannulation was performed and pursestring sutures secured. Vancomycin paste was placed on the ster nal edges. After adequate hemostasis had been obtained in the mediastinum, 24-[place] chest tubes wer e placed. Sternum was closed with #7 wire. Sternum was treated with platelet-rich plasma and wires twisted. Wounds were irrigated, treated with platelet-poor plasma, and closed in multiple layers. T he patient tolerated the procedure well and was transferred to the Intensive Care Unit in stable, but critical condition. Needle, sponge, and instrument counts were all reported correct at the end of t he procedure.
[2017-06-25] MEDS ORDERED: Dextrose 50% Abboject 50 ML SYRINGE SLOW IVP PRN (13:27)
[2017-06-25] MEDS ORDERED: Dextrose 5% in Water 1,000 ML IV PRN (13:27)
[2017-06-25] MEDS: D5 1/2 NS w/20 mEq KCL 1,000 ML IV SCH (13:41)
[2017-06-25] MEDS: Ondansetron HCl/PF 4 MG/2 ML Vial IVP PRN ×2 (13:42→21:43)
[2017-06-25 13:44] LABS: #Eosinphils 0.3 thou/uL (0.0-0.7); #Lymphocytes 1.6 thou/uL (1.20-3.40); #Monocytes 1.5 thou/uL (0.11-0.59); #Neutrophils 12.3 thou/uL (1.40-6.50); %Basophils 0.1 % (0.0-1.0); %Monocytes 9.3 % (0.0-10.0); %Neutrophils 78.6 % (42.0-75.0); Hemoglobin 12.8 g/dL (14.0-18.0); INR-International Normal Ratio 1.2; Mean Corpuscular HGB CONC 34.2 g/dL (32.0-36.0); Mean Corpuscular Hemoglobin 32.4 pg (27.0-31.0); Mean Corpuscular Volume 94.7 fl (80.0-94.0); PTT 32.9 SEC (22.9-36.1); Platelet Count 146 thou/uL (130-400); Prothrombin Time 15.8 SEC (12.0-14.7); RBC Distribution Width 12.2 % (11.5-14.5); Red Blood Cell (RBC) Count 3.96 mill/uL (4.70-6.10); White Blood Cell (WBC) Count 15.7 thou/uL (4.8-10.8)
[2017-06-25] MEDS ORDERED: Magnesium 2 GM/NS 0.9% 100 ML 2 GM in Premix Bag 1 BAG IVPB SCH (13:45)
[2017-06-25 13:49] LABS: Actual Bicarbonate (HCO3a) 22.9 mEq/L (22-26); Base Excess (BEa) -1.6 mEq/L (0 (+/-) 2.5); Calcium, Ionized 1.3 mmol/L (1.12-1.30); Hematocrit-ABG 37.3 % (42.0-52.0); Hemoglobin (Hb) 12.6 g/dL (14.0-18.0); O2 Tension (PaO2) 81.5 mmHg (80.0-100.0)
[2017-06-25 13:50] LABS: Puncture Site ALINE
[2017-06-25] MEDS: Insulin Regular 300 UNITS/3 ML VIAL SC PRN ×3 (13:52→20:17)
[2017-06-25] MEDS ORDERED: Ketorolac Tromethamine 30 MG/ML VIAL IVP SCH (14:00)
[2017-06-25] MEDS ORDERED: CEFAZOLIN/Water 2 GM/20 ML SYRINGE SLOW IVP SCH (14:00)
[2017-06-25] MEDS: Morphine 4 MG/ML VIAL SLOW IVP PRN ×2 (14:08→19:45)
[2017-06-25 14:09] LABS: Anion Gap 11 mmol/L (10-20); BUN (Urea Nitrogen) 24 mg/dL (8.4-25.7); Calc. Creatinine Clearance 53 mL/min (70-130); Calcium 9.1 mg/dL (7.8-10.44); Carbon Dioxide 22 mmol/L (23-31); Chloride 105 mmol/L (98-107); Estimated GFR-MDRD 45; Glucose 140 mg/dL (83-110); Potassium 4.1 mmol/L (3.5-5.1); Sodium 134 mmol/L (136-145)
[2017-06-25] MEDS ORDERED: Lidocaine 2% PF 100 mg/5 ml Syringe ONE (15:13)
[2017-06-25] MEDS ORDERED: Protamine Sulfate 250 MG/25 ML VIAL ONE (15:13)
[2017-06-25] MEDS ORDERED: Propofol 200 MG/20 ML VIAL ONE (15:13)
[2017-06-25] MEDS ORDERED: Cardioplegic Soln 1,000 ML BAG ONE (15:13)
[2017-06-25] MEDS ORDERED: ePHEDrine/0.9% NaCl/PF SYRINGE 50 mg/10 ml ONE (15:13)
[2017-06-25] MEDS ORDERED: Norepinephrine 4 MG/4 ML VIAL ONE (15:13)
[2017-06-25] MEDS ORDERED: Sodium Bicarb 50 MEQ/50 ML VIAL ONE (15:13)
[2017-06-25] MEDS ORDERED: Calcium Chloride 1 GM/10 ML Abboject SYRINGE ONE (15:13)
[2017-06-25] MEDS ORDERED: Papaverine 60 MG/2 ML VIAL ONE (15:13)
[2017-06-25] MEDS ORDERED: Thrombin 5000 UNITS/5 ML VIAL ONE (15:13)
[2017-06-25] MEDS ORDERED: Lidocaine 1% PF 5 ML VIAL ONE (15:13)
[2017-06-25] MEDS ORDERED: Magnesium 5 GM/10 ML VIAL ONE (15:13)
[2017-06-25] MEDS ORDERED: Aminocaproic Acid 5 GM/20 ML VIAL ONE (15:13)
[2017-06-25] MEDS ORDERED: Heparin 30,000 units/30 ml VIAL ONE (15:13)
[2017-06-25] MEDS ORDERED: Nitroglycerin 50 MG/250 ML BOT ONE (15:13)
[2017-06-25] MEDS ORDERED: Heparin 5,000 UNITS/ML VIAL ONE (15:13)
[2017-06-25] MEDS ORDERED: Potassium Chloride 60 MEQ/30 ML VIAL ONE (15:13)
--- NOTE | 2017-06-25 15:14 | RAD ---
SINGLE VIEW OF THE CHEST: Comparison: 06-23-17 History: Post open heart surgery. FINDINGS: Single view of the chest shows an enlarged cardiomediastinal silhouette. The patient is status post s ternotomy. There is an endotracheal tube with its tip at the upper aspect of the clavicles. A central venous catheter is seen with its tip in the superior vena cava. There is no evidence of consolidatio n, mass, pneumothorax or pleural effusions. There are left chest tubes. IMPRESSION: Appropriate position of lines and tubes status post sternotomy. POS: SAUL
[2017-06-25] MEDS ORDERED: Norepinephrine 8 MG in Sodium Chloride 0.9% 250 ML 250 ML IVPB PRN (15:45)
[2017-06-25] MEDS: Fentanyl 100 MCG/2 ML VIAL SLOW IVP PRN ×3 (16:18→23:29)
[2017-06-25] MEDS: CEFAZOLIN/Water 2 GM/20 ML SYRINGE SLOW IVP SCH (16:20)
--- NOTE | 2017-06-25 16:46 | PDOC.PN ---
- Subjective Encounter Start Date: 06/25/17 Encounter Start Time: 16:44 Subjective: s/p CABG.intubated . -: care discussed w at bedisde.no acute events - Objective Resuscitation Status: Resuscitation Status FULL:Full Resuscitation MAR Reviewed: Yes Vital Signs & Weight: Vital Signs (12 hours) Temp Pulse Resp BP BP Pulse Ox 06/25/17 14:16 55 L 143/63 H 06/25/17 13:17 93 L 06/25/17 13:09 54 L 113/51 L 06/25/17 12:58 97.9 F 56 L 12 117/49 L 95 Weight Admit Weight 212 lb 4.882 oz Weight 190 lb 14.725 oz Most Recent Monitor Data Heart Rate from ECG 55 NIBP 145/70 NIBP BP-Mean 105 Respiration from ECG 12 SpO2 96 I&O: 06/24/17 06/25/17 06/26/17 06:59 06:59 06:59 Intake Total 1789 997 Output Total 7697 2544 350 [facility] [phone] Result Diagrams: 06/25/17 13:23 06/25/17 13:23 Additional Labs: Accuchecks 06/25/17 06/25/17 06/25/17 13:23 12:50 12:14 POC Glucose 141 H 142 H 170 H 06/25/17 06/25/17 06/25/17 10:52 10:33 09:43 POC Glucose 163 H 143 H 123 H 06/25/17 08:30 POC Glucose 108 Laboratory Tests 06/22/17 06/22/17 06/22/17 06:31 06:31 06:31 Creatinine 1.34 H Troponin I 126.567 H* Triglycerides 293 H Cholesterol 269 H LDL Cholesterol, Calc 171 HDL Cholesterol 39 06/22/17 06/22/17 06/23/17 09:43 15:17 03:44 Creatinine 1.51 H Troponin I 219.602 H* 204.915 H* Triglycerides Cholesterol LDL Cholesterol, Calc HDL Cholesterol 06/24/17 04:10 Creatinine 1.53 H Troponin I Triglycerides Cholesterol LDL Cholesterol, Calc HDL Cholesterol Phys Exam - Physical Examination Constitutional: NAD intubated HEENT: PERRLA, moist MMs, sclera anicteric, oral pharynx no lesions Neck: no JVD Respiratory: no wheezing, no rales, no rhonchi, clear to auscultation bilateral Cardiovascular: RRR, no significant murmur Gastrointestinal: soft, no distention, positive bowel sounds Musculoskeletal: no edema, pulses present Lymphatic: no nodes Skin: no rash Dx/Plan (1) Acute myocardial infarction Code(s): I21.9 - ACUTE MYOCARDIAL INFARCTION, UNSPECIFIED Status: Acute Comment: s/p CABG X5 ,06/25/17 (2) A-fib Code(s): I48.91 - UNSPECIFIED ATRIAL FIBRILLATION Status: Chronic Qualifiers: Atrial fibrillation type: paroxysmal Qualified Code(s): I48.0 - Paroxysmal atrial fibrillation (3) CKD (chronic kidney disease) Code(s): N18.9 - CHRONIC KIDNEY DISEASE, UNSPECIFIED Status: Chronic (4) HTN (hypertension) Code(s): I10 - ESSENTIAL (PRIMARY) HYPERTENSION Status: Chronic (5) BPH (benign prostatic hyperplasia) Code(s): N40.0 - BENIGN PROSTATIC HYPERPLASIA WITHOUT LOWER URINRY TRACT SYMP Status: Chronic - Plan plan discussed w/ family, DVT proph w/SCDs cont post-op care. CCU monitoring.AM labs.Vent support -: cont cardioprudent meds per cardiology /CTVS -: hemodynamically stable. * . Review of Systems - Review of Systems Other: can not be obtained due to intubated status - Medications/Allergies Allergies/Adverse Reactions: Allergies Allergy/AdvReac Type Severity Reaction Status Date / Time amoxicillin Allergy Verified 09/05/16 08:33 Medications: Current Medications Acetaminophen (Tylenol) 650 mg PO Q6H PRN PRN Reason: Headache/Fever Or Mild Pain Hydrocodone Bitart/Acetaminophen ([place] 5/325) 1 tab PO Q4H PRN PRN Reason: Moderate Pain (4-6) Hydrocodone Bitart/Acetaminophen ([place] 5/325) 2 tab PO Q4H PRN PRN Reason: Severe Pain (7-10) Al Hydroxide/Mg Hydroxide (Maalox) 30 ml PO Q4H PRN PRN Reason: Indigestion Albumin Human (Albumin 5%) 12.5 gm IVPB Q6H PRN PRN Reason: To Maintain SBP> 90 mmHG Stop: 06/26/17 13:18 Albumin Human (Albumin 5%) 25 gm IVPB Q6H PRN PRN Reason: To Maintain SBP > 90 mmHG Stop: 06/26/17 13:18 Albuterol/Ipratropium (Duoneb) 3 ml NEB [id number] PRN PRN Reason: SHORTNESS OF BREATH Albuterol/Ipratropium (Duoneb) 3 ml NEB [id number] [facility] Aspirin (Aspirin) 325 mg PO DAILY [facility] Bisacodyl (Dulcolax) 10 mg PO Q12H PRN PRN Reason: Constipation Bisacodyl (Dulcolax) 10 mg [place] Q12H PRN PRN Reason: Constipation Cefazolin Sodium (Ancef) 2 gm SLOW IVP 0800,1600,2359 [facility] Stop: 06/26/17 08:01 Dextrose/Water (Dextrose 50%) 25 gm SLOW IVP PRN PRN PRN Reason: PER HYPOGLYCEMIC PROTOCOL Famotidine (Pepcid) 20 mg SLOW IVP Q12HR [facility] Fentanyl (Sublimaze) 25 mcg SLOW IVP Q2H PRN PRN Reason: Moderate Pain (4-6) Stop: 06/27/17 13:14 Fentanyl (Sublimaze) 50 mcg SLOW IVP Q2H PRN PRN Reason: Severe Pain (7-10) Stop: 06/27/17 13:14 Glucagon (Glucagon) 1 mg SC PRN PRN PRN Reason: PER HYPOGLYCEMIC PROTOCOL Guaifenesin/Dextromethorphan (Robitussin Dm) 15 ml PO Q4H PRN PRN Reason: Cough Hydralazine HCl (Apresoline) 10 mg SLOW IVP Q6H PRN PRN Reason: To Maintain SBP< 140mmHG Potassium Chloride/Dextrose/Sod Cl (D5 1/2 Ns W/20 Meq Kcl) 1,000 mls @ 40 mls/ hr IV .Q24H [facility] Last Admin: 06/25/17 13:41 Dose: 1,000 mls Hetastarch/Sodium Chloride (Hespan) 500 mls @ 0 mls/hr IVPB PRN PRN; As Directed PRN Reason: To Maintain SBP > 90mmHg Stop: 06/26/17 13:14 Magnesium Sulfate 2 gm/ Device 100 mls @ 100 mls/hr IVPB QAM [facility] Stop: 06/27/17 09:59 Nitroglycerin/Dextrose (Nitroglycerin 50 Mg/250 Ml Bot) 250 mls @ 0 mls/hr IVPB PRN PRN; Protocol; Titrate PRN Reason: To Maintain SBP< 140mmHG Last Admin: 06/25/17 14:12 Dose: 250 mls Insulin Human Regular 100 (units/ Sodium Chloride) 101 mls @ 0 mls/hr IVPB INF CAROL; As Directed PRN Reason: Protocol Dextrose/Water (D5w) 1,000 mls @ 0 mls/hr IV INF PRN; As Directed PRN Reason: PRN HYPOGLYCEMIC PROTOCOL Norepinephrine Bitartrate 8 mg (/ Sodium Chloride) 258 mls @ 0 mls/hr IVPB PRN PRN; Protocol; Titrate PRN Reason: To maintain SBP > 90 mmHG Insulin Human Regular (Humulin R) 0 units SC Q4H PRN; Protocol PRN Reason: POST OP SLIDING SCALE Last Admin: 06/25/17 13:52 Dose: 3 unit Ketorolac Tromethamine (Toradol) 15 mg IVP Q6HR [facility] Stop: 06/28/17 18:01 Morphine Sulfate (Morphine) 2 mg SLOW IVP Q15MIN PRN PRN Reason: Severe Pain (7-10) Last Admin: 06/25/17 14:08 Dose: 2 mg Ondansetron HCl (Zofran) 4 mg IVP Q6H PRN PRN Reason: Nausea/Vomiting Last Admin: 06/25/17 13:42 Dose: 4 mg Potassium Chloride (Kcl) 20 meq IVPB PRN PRN PRN Reason: K level </= 4.0 Promethazine HCl (Phenergan) 6.25 mg IM Q4H PRN PRN Reason: Nausea/Vomiting Sodium Chloride (Flush - Normal Saline) 10 ml IVF PRN PRN PRN Reason: Saline Flush
[2017-06-25] MEDS: Ketorolac Tromethamine 30 MG/ML VIAL IVP SCH (17:51)
[2017-06-25 19:46] LABS: Potassium 4.2 mmol/L (3.5-5.1)
--- NOTE | 2017-06-25 20:08 | EKG ---
Test Reason : POST CABG Blood Pressure : / mmHG Vent. Rate : 057 BPM Atrial Rate : 057 BPM P-R Int : 228 ms QRS Dur : 114 ms QT Int : 490 ms P-R-T Axes : 062 -04 134 degrees QTc Int : 476 ms Sinus bradycardia with 1st degree A-V block Septal infarct (cited on or before 22-JUN-2017) Marked ST abnormality, possible anterolateral subendocardial injury Abnormal ECG When compared with ECG of 23-JUN-2017 15:08, (Unconfirmed) SC interval has increased Vent. rate has decreased BY 30 BPM Non-specific change in ST segment in Inferior leads ST now depressed in Anterolateral leads Nonspecific T wave abnormality no longer evident in Inferior leads Confirmed by DONTAE ORDONEZ, SChad ([id number]) on 06/25/2017 8:08:42 PM Referred By: Marie DOMÍNGUEZ Confirmed By:DR. Shannon DIGGS MD
[2017-06-25] MEDS ORDERED: Famotidine 40 MG/4 ML VIAL SLOW IVP SCH (21:00)
[2017-06-25] MEDS ORDERED: Famotidine/PF 20 mg/2ml Vial SLOW IVP SCH (21:00)
[2017-06-25] MEDS: hydrALAZINE 20 MG/ML VIAL SLOW IVP PRN (22:02)
[2017-06-26] MEDS: CEFAZOLIN/Water 2 GM/20 ML SYRINGE SLOW IVP SCH ×2 (00:12→09:03)
[2017-06-26] MEDS: Ketorolac Tromethamine 30 MG/ML VIAL IVP SCH ×2 (00:12→05:36)
[2017-06-26 04:17] LABS: #Lymphocytes 0.9 thou/uL (1.20-3.40); #Monocytes 1.7 thou/uL (0.11-0.59); #Neutrophils 11.1 thou/uL (1.40-6.50); %Basophils 0.1 % (0.0-1.0); %Eosinophils 0.2 % (0.0-10.0); %Lymphocytes 6.6 % (21.0-51.0); %Monocytes 12.3 % (0.0-10.0); %Neutrophils 80.9 % (42.0-75.0); Hemoglobin 12.7 g/dL (14.0-18.0); Mean Corpuscular HGB CONC 33.8 g/dL (32.0-36.0); Mean Corpuscular Hemoglobin 31.9 pg (27.0-31.0); Mean Corpuscular Volume 94.3 fl (80.0-94.0); Mean Platelet Volume 8.7 fL (7.4-10.4); Platelet Count 176 thou/uL (130-400); RBC Distribution Width 12.2 % (11.5-14.5); Red Blood Cell (RBC) Count 3.97 mill/uL (4.70-6.10); White Blood Cell (WBC) Count 13.7 thou/uL (4.8-10.8)
[2017-06-26] MEDS: Fentanyl 100 MCG/2 ML VIAL SLOW IVP PRN ×2 (04:24→17:26)
[2017-06-26 04:50] LABS: Anion Gap 14 mmol/L (10-20); BUN (Urea Nitrogen) 29 mg/dL (8.4-25.7); Calc. Creatinine Clearance 53 mL/min (70-130); Calcium 8.5 mg/dL (7.8-10.44); Carbon Dioxide 22 mmol/L (23-31); Chloride 106 mmol/L (98-107); Estimated GFR-MDRD 40; Glucose 137 mg/dL (83-110); Potassium 3.8 mmol/L (3.5-5.1); Sodium 138 mmol/L (136-145)
[2017-06-26] MEDS: HYDROcodone/Acetaminophen 5/325 mg Tablet PO PRN ×4 (05:35→17:11)
[2017-06-26] MEDS: Insulin Regular 300 UNITS/3 ML VIAL SC PRN (06:02)
[2017-06-26] MEDS ORDERED: Magnesium 2 GM/NS 0.9% 100 ML 2 GM in Premix Bag 1 BAG IVPB SCH (09:00)
[2017-06-26] MEDS ORDERED: Aspirin 325 MG TAB PO SCH (09:00)
[2017-06-26] MEDS: Tamsulosin HCl 0.4 MG CAP PO SCH (09:04)
[2017-06-26] MEDS: Carvedilol 6.25 MG TAB PO SCH ×2 (09:05→17:11)
[2017-06-26] MEDS: Famotidine 20 MG TAB PO SCH ×2 (09:05→20:12)
--- NOTE | 2017-06-26 09:39 | PRG ---
DATE OF SERVICE: 06/26/2017 This morning post-extubation doing well. X-ray yesterday still shows cephalization. PHYSICAL EXAMINATION: VITAL SIGNS: His sats are 93 on 5 liters, respirations 21, blood pressure 120/50. His I's and O's a re 997 in, 3770 out. CHEST: Chest reveals bilateral crackles. CARDIAC: Normal S1, S2. LABORATORY DATA: White count 13,000, H&H 12 and 37, platelet count normal. Electrolytes are normal. Creatinine 1.68. IMPRESSION: 1. Status post coronary artery bypass graft. 2. Azotemia. 3. Sleep apnea. PLAN: Continue neb treatments, supportive care. I will follow.
--- NOTE | 2017-06-26 10:57 | RAD ---
CHEST ONE VIEW: History: 76-year-old male with history of post op open heart. Comparison: 06-25-17 FINDINGS: Right subclavian catheter in place. Chest tubes in place. Mild vascular congestion and bibasilar post -operative changes overall showing definite improvement from the prior study. Endotracheal tube has b een removed. No pneumothorax or other acute process. IMPRESSION: Improving post-operative changes. Removal of the endotracheal tube. No pneumothorax or other signific ant new process. POS: [facility]
[2017-06-26] MEDS: Ondansetron HCl/PF 4 MG/2 ML Vial IVP PRN (12:59)
[2017-06-26] MEDS: D5 1/2 NS w/20 mEq KCL 1,000 ML IV SCH (12:59)
--- NOTE | 2017-06-26 15:37 | PDOC.PN ---
- Subjective Encounter Start Date: 06/26/17 Encounter Start Time: 15:35 Subjective: extubated last night and doing well -: denies any major chest pain/SOB.moving in room - Objective Resuscitation Status: Resuscitation Status FULL:Full Resuscitation MAR Reviewed: Yes Vital Signs & Weight: Vital Signs (12 hours) Temp Pulse Resp Pulse Ox 06/26/17 12:00 98.5 F 06/26/17 08:00 98.1 F 92 24 H 93 L 06/26/17 07:10 91 21 H 93 L 06/26/17 04:00 98.2 F Weight Admit Weight 212 lb 4.882 oz Weight 214 lb 4.629 oz Most Recent Monitor Data Heart Rate from ECG 77 NIBP 132/70 NIBP BP-Mean 81 Respiration from ECG 22 SpO2 93 I&O: 06/25/17 06/26/17 06/27/17 06:59 06:59 06:59 Intake Total 997 908 850 Output Total 4640 1425 511 Balance -2773 -517 339 Result Diagrams: 06/26/17 03:40 06/26/17 03:40 Additional Labs: Accuchecks 06/26/17 06/26/17 06/25/17 03:46 00:16 20:18 POC Glucose 141 H 119 H 138 H 06/25/17 17:20 POC Glucose 135 H Laboratory Tests 09/05/16 06/22/17 06/23/17 09:10 06:31 03:44 Creatinine 1.03 1.34 H 1.51 H 06/24/17 06/25/17 06/26/17 04:10 13:23 03:40 Creatinine 1.53 H 1.51 H 1.68 H Phys Exam - Physical Examination Constitutional: NAD HEENT: PERRLA, moist MMs, sclera anicteric, oral pharynx no lesions Neck: no nodes, no JVD, supple, full ROM Respiratory: no wheezing, no rales, no rhonchi, clear to auscultation bilateral Cardiovascular: RRR, no significant murmur, no rub, gallop Gastrointestinal: soft, non-tender, no distention, positive bowel sounds Musculoskeletal: no edema, pulses present Neurological: non-focal, normal sensation, moves all 4 limbs Psychiatric: normal affect, A&O x 3 Skin: no rash Dx/Plan (1) Acute myocardial infarction Code(s): I21.9 - ACUTE MYOCARDIAL INFARCTION, UNSPECIFIED Status: Acute Comment: s/p CABG X5 ,06/25/17 (2) A-fib Code(s): I48.91 - UNSPECIFIED ATRIAL FIBRILLATION Status: Chronic Qualifiers: Atrial fibrillation type: paroxysmal Qualified Code(s): I48.0 - Paroxysmal atrial fibrillation (3) SHASTA (acute kidney injury) Code(s): N17.9 - ACUTE KIDNEY FAILURE, UNSPECIFIED Status: Acute (4) CKD (chronic kidney disease) Code(s): N18.9 - CHRONIC KIDNEY DISEASE, UNSPECIFIED Status: Chronic (5) HTN (hypertension) Code(s): I10 - ESSENTIAL (PRIMARY) HYPERTENSION Status: Chronic (6) BPH (benign prostatic hyperplasia) Code(s): N40.0 - BENIGN PROSTATIC HYPERPLASIA WITHOUT LOWER URINRY TRACT SYMP Status: Chronic - Plan PT/OT, respiratory therapy, incentive spirometry, out of bed/ambulate, DVT proph w/SCDs s/p CABG X5 .clinically improved.cariology/CTVS following. -: cont cardio prudent meds.on ASA,statin,BB. -: No BRITTNEE-I/ARB d/t AKIU. monitor renal Fx/Urine output -: increase ambulation.Post-op care. -: hemodynamically stable.am labs * . Review of Systems - Review of Systems Constitutional: weakness. negative: fever, chills, sweats, malaise, other Eyes: negative: Pain, Vision Change, Conjunctivae Inflammation, Eyelid Inflammation, Redness, Other Respiratory: negative: Cough, Dry, Shortness of Breath, Hemoptysis, SOB with Excertion, Pleuritic Pain, Sputum, Wheezing Cardiovascular: negative: chest pain, palpitations, orthopnea, paroxysmal nocturnal dyspnea, edema, light headedness, other Gastrointestinal: negative: Nausea, Vomiting, Abdominal Pain, Diarrhea, Constipation, Melena, Hematochezia, Other Genitourinary: negative: Dysuria, Frequency, Incontinence, Hematuria, Retention , Other Musculoskeletal: negative: Neck Pain, Shoulder Pain, Arm Pain, Back Pain, Hand Pain, Leg Pain, Foot Pain, Other Skin: negative: Rash, Lesions, Vaughn, Bruising, Other Neurological: negative: Weakness, Numbness, Incoordination, Change in Speech, Confusion, Seizures, Other - Medications/Allergies Allergies/Adverse Reactions: Allergies Allergy/AdvReac Type Severity Reaction Status Date / Time amoxicillin Allergy Verified 09/05/16 08:33 Medications: Current Medications Acetaminophen (Tylenol) 650 mg PO Q6H PRN PRN Reason: Headache/Fever Or Mild Pain Hydrocodone Bitart/Acetaminophen ([place] 5/325) 1 tab PO Q4H PRN PRN Reason: Moderate Pain (4-6) Last Admin: 06/26/17 09:18 Dose: 1 tab Hydrocodone Bitart/Acetaminophen ([place] 5/325) 2 tab PO Q4H PRN PRN Reason: Severe Pain (7-10) Last Admin: 06/26/17 12:59 Dose: 2 tab Al Hydroxide/Mg Hydroxide (Maalox) 30 ml PO Q4H PRN PRN Reason: Indigestion Albuterol/Ipratropium (Duoneb) 3 ml NEB [id number] PRN PRN Reason: SHORTNESS OF BREATH Albuterol/Ipratropium (Duoneb) 3 ml NEB [id number] [facility] Last Admin: 06/26/17 07:10 Dose: 3 ml Aspirin (Aspirin) 325 mg PO DAILY [facility] Last Admin: 06/26/17 09:04 Dose: 325 mg Atorvastatin Calcium (Lipitor) 40 mg PO [facility] Bisacodyl (Dulcolax) 10 mg PO Q12H PRN PRN Reason: Constipation Last Admin: 06/26/17 09:19 Dose: 10 mg Bisacodyl (Dulcolax) 10 mg [place] Q12H PRN PRN Reason: Constipation Carvedilol (Coreg) 6.25 mg PO BID-[facility] Last Admin: 06/26/17 09:05 Dose: 6.25 mg Famotidine (Pepcid) 20 mg PO BID [facility] Last Admin: 06/26/17 09:05 Dose: 20 mg Fentanyl (Sublimaze) 25 mcg SLOW IVP Q2H PRN PRN Reason: Moderate Pain (4-6) Stop: 06/27/17 13:14 Fentanyl (Sublimaze) 50 mcg SLOW IVP Q2H PRN PRN Reason: Severe Pain (7-10) Stop: 06/27/17 13:14 Last Admin: 06/26/17 04:24 Dose: 50 mcg Guaifenesin/Dextromethorphan (Robitussin Dm) 15 ml PO Q4H PRN PRN Reason: Cough Hydralazine HCl (Apresoline) 10 mg SLOW IVP Q6H PRN PRN Reason: To Maintain SBP< 140mmHG Last Admin: 06/25/17 22:02 Dose: 10 mg Potassium Chloride/Dextrose/Sod Cl (D5 1/2 Ns W/20 Meq Kcl) 1,000 mls @ 40 mls/ hr IV .Q24H [facility] Last Admin: 06/26/17 12:59 Dose: 1,000 mls Magnesium Sulfate 2 gm/ Device 100 mls @ 100 mls/hr IVPB QAM [facility] Stop: 06/27/17 09:59 Last Admin: 06/26/17 09:03 Dose: 100 mls Nitroglycerin/Dextrose (Nitroglycerin 50 Mg/250 Ml Bot) 250 mls @ 0 mls/hr IVPB PRN PRN; Protocol; Titrate PRN Reason: To Maintain SBP< 140mmHG Last Admin: 06/25/17 14:12 Dose: 250 mls Norepinephrine Bitartrate 8 mg (/ Sodium Chloride) 258 mls @ 0 mls/hr IVPB PRN PRN; Protocol; Titrate PRN Reason: To maintain SBP > 90 mmHG Potassium Chloride 20 meq/ (Sodium Chloride) 110 mls @ 55 mls/hr IVPB PRN PRN PRN Reason: FOR K+ <= 4 Last Admin: 06/26/17 06:01 Dose: 110 mls Morphine Sulfate (Morphine) 2 mg SLOW IVP Q15MIN PRN PRN Reason: Severe Pain (7-10) Last Admin: 06/25/17 19:45 Dose: 2 mg Ondansetron HCl (Zofran) 4 mg IVP Q6H PRN PRN Reason: Nausea/Vomiting Last Admin: 06/26/17 12:59 Dose: 4 mg Potassium Chloride (Kcl) 20 meq IVPB PRN PRN PRN Reason: K level </= 4.0 Promethazine HCl (Phenergan) 6.25 mg IM Q4H PRN PRN Reason: Nausea/Vomiting Sodium Chloride (Flush - Normal Saline) 10 ml IVF PRN PRN PRN Reason: Saline Flush Tamsulosin HCl (Flomax) 0.4 mg PO DAILY [facility] Last Admin: 06/26/17 09:04 Dose: 0.4 mg
[2017-06-26] MEDS: Atorvastatin Calcium 40 MG TAB PO SCH (20:12)
--- NOTE | 2017-06-26 20:18 | EKG ---
Test Reason : Blood Pressure : / mmHG Vent. Rate : 087 BPM Atrial Rate : 087 BPM P-R Int : 000 ms QRS Dur : 104 ms QT Int : 420 ms P-R-T Axes : 000 -07 136 degrees QTc Int : 505 ms Sinus rhythm with short VA Septal infarct (cited on or before 22-JUN-2017) T wave abnormality, consider anterolateral ischemia Prolonged QT Abnormal ECG When compared with ECG of 22-JUN-2017 05:34, (Unconfirmed) Sinus rhythm has replaced Atrial fibrillation Serial changes of evolving Septal infarct Present Confirmed by PATTI LINARES (2) on 06/26/2017 8:18:24 PM Referred By: VIJAY Confirmed By:PATTI LINARES
[2017-06-26] MEDS ORDERED: Bisacodyl 10 MG SUPP PR PRN (22:14)
[2017-06-26] MEDS ORDERED: Artificial Tears 18 DROP/0.9 ML EA EYE PRN (22:14)
[2017-06-26] MEDS ORDERED: Fentanyl 100 MCG/2 ML VIAL SLOW IVP PRN (22:14)
[2017-06-26] MEDS ORDERED: Mineral Oil ENEMA PR PRN (22:14)
[2017-06-26] MEDS ORDERED: Guaifenesin DM 100-10/5 ML UDCUP PO PRN (22:14)
[2017-06-26] MEDS ORDERED: Ondansetron HCl/PF 4 MG/2 ML Vial IVP PRN (22:14)
[2017-06-26] MEDS ORDERED: Nitroglycerin 0.4 MG TAB (25 Tab Bottle) SL PRN (22:14)
[2017-06-26] MEDS ORDERED: Bisacodyl 5 MG TAB PO PRN (22:14)
[2017-06-26] MEDS ORDERED: Acetaminophen 325 MG TAB PO PRN (22:14)
[2017-06-26] MEDS ORDERED: Milk Of Magnesia 30 ML UDCUP PO PRN (22:14)
[2017-06-26] MEDS ORDERED: Mag-Al 1200 mg/1200 mg/30 ML UDCUP PO PRN (22:14)
[2017-06-26] MEDS ORDERED: HYDROcodone/Acetaminophen 5/325 mg Tablet PO PRN (22:14)
[2017-06-26] MEDS ORDERED: diphenhydrAMINE 25 MG CAP PO PRN (22:14)
[2017-06-26] MEDS ORDERED: Zolpidem Tartrate 5 MG TAB PO PRN (22:14)
[2017-06-26] MEDS ORDERED: Famotidine 20 MG TAB PO SCH (22:30)
[2017-06-27 05:06] LABS: #Eosinphils 0.1 thou/uL (0.0-0.7); #Lymphocytes 1.1 thou/uL (1.20-3.40); #Monocytes 2.2 thou/uL (0.11-0.59); #Neutrophils 12.8 thou/uL (1.40-6.50); %Basophils 0.1 % (0.0-1.0); %Eosinophils 0.4 % (0.0-10.0); %Lymphocytes 6.7 % (21.0-51.0); %Monocytes 13.5 % (0.0-10.0); %Neutrophils 79.3 % (42.0-75.0); Hemoglobin 11.6 g/dL (14.0-18.0); Mean Corpuscular Hemoglobin 31.8 pg (27.0-31.0); Mean Corpuscular Volume 96.3 fl (80.0-94.0); Mean Platelet Volume 8.2 fL (7.4-10.4); Platelet Count 177 thou/uL (130-400); RBC Distribution Width 12.2 % (11.5-14.5); Red Blood Cell (RBC) Count 3.64 mill/uL (4.70-6.10); White Blood Cell (WBC) Count 16.2 thou/uL (4.8-10.8)
[2017-06-27 05:25] LABS: Anion Gap 12 mmol/L (10-20); BUN (Urea Nitrogen) 32 mg/dL (8.4-25.7); Calc. Creatinine Clearance 52 mL/min (70-130); Calcium 8.4 mg/dL (7.8-10.44); Carbon Dioxide 25 mmol/L (23-31); Chloride 104 mmol/L (98-107); Estimated GFR-MDRD 39; Glucose 126 mg/dL (83-110); Potassium 4.1 mmol/L (3.5-5.1); Sodium 137 mmol/L (136-145)
[2017-06-27] MEDS ORDERED: Albumin 25% 25 GM/100 ML BOT IVPB ONE (07:39)
[2017-06-27] MEDS ORDERED: Furosemide 40 MG/4 ML VIAL SLOW IVP SCH (07:45)
[2017-06-27] MEDS: Amiodarone 200 MG TAB PO SCH ×2 (08:23→21:59)
[2017-06-27] MEDS: Tamsulosin HCl 0.4 MG CAP PO SCH (08:23)
[2017-06-27] MEDS: Aspirin 325 mg Enteric Coated Tablet PO SCH (08:23)
[2017-06-27] MEDS: Carvedilol 6.25 MG TAB PO SCH ×2 (08:23→18:42)
--- NOTE | 2017-06-27 09:41 | PRG ---
DATE OF SERVICE: 06/27/2017 This morning he said he is feeling weak, less short of breath. PT just walked him. PHYSICAL EXAMINATION: VITAL SIGNS: Sats are 97 on 4 liters, blood pressure 137/84, temperature 98, respirations 18. CHEST: Chest reveals decreased breath sounds, no wheezing. CARDIAC: Normal S1, S2, no gallops. ABDOMEN: Soft, no masses. LABORATORY: White count 16,000, H&H 11 and 35, platelet count normal, 11.72 creatinine. IMPRESSION: 1. Status post coronary artery bypass graft. 2. Renal failure. 3. Sleep apnea. 4. Hypertension. 5. Severe deconditioning. X-ray shows basically some cardiomegaly, no obvious infiltrates. IMPRESSION: 1. Coronary artery bypass graft. 2. Supraventricular tachycardia. 3. Bronchitis. 4. Sleep apnea. PLAN: Continue neb treatments, supportive care and PT.
--- NOTE | 2017-06-27 09:50 | RAD ---
CHEST ONE VIEW: History: Post coronary artery bypass graft. Comparison: Prior day. FINDINGS: Central venous catheter tip is at the cavoatrial junction. Heart size is enlarged. Mild pulmonary radha ous congestion. Small effusions. There is a curvilinear hypodensity along the right hemidiaphragm. No large apical pneumothorax. Multiple midline sternotomy wires. IMPRESSION: 1. Mild worsening of pulmonary venous congestion. 2. Small effusions. 3. Otherwise no significant change of the chest. POS: OFF
[2017-06-27] MEDS ORDERED: Ziprasidone 20 MG VIAL IM PRN (13:27)
[2017-06-27] MEDS ORDERED: Sterile Water 10 ML VIAL FS PRN (13:28)
[2017-06-27] MEDS ORDERED: Sterile Water 10 ML ONE (13:32)
--- NOTE | 2017-06-27 15:05 | PDOC.PN ---
- Subjective Encounter Start Date: 06/27/17 Encounter Start Time: 15:04 Subjective: transferred to tele & acting psychotic -: refusing meds,O2, any intervention. -: O2 sats reported to be low in 70%s upset about room change - Objective Resuscitation Status: Resuscitation Status FULL:Full Resuscitation MAR Reviewed: Yes Vital Signs & Weight: Vital Signs (12 hours) Temp Pulse Resp BP BP Pulse Ox 06/27/17 13:47 84 18 94 L 06/27/17 13:46 94 L 06/27/17 12:10 98.4 F 79 22 H 157/80 H 96 06/27/17 08:23 173/86 H 06/27/17 08:00 98.2 F 85 20 93 L 06/27/17 07:28 85 20 155/80 H 97 06/27/17 04:00 97.6 F 81 21 H 122/64 96 Weight Admit Weight 212 lb 4.882 oz Weight 223 lb 1 oz Most Recent Monitor Data Heart Rate from ECG 79 NIBP 147/68 NIBP BP-Mean 116 Respiration from ECG 23 SpO2 90 I&O: 06/26/17 06/27/17 06/28/17 06:59 06:59 06:59 Intake Total 908 2184 Output Total 1425 686 Balance -517 1498 Result Diagrams: 06/27/17 05:01 06/27/17 05:01 Phys Exam - Physical Examination Constitutional: NAD sitting up in chair HEENT: PERRLA, moist MMs, sclera anicteric, oral pharynx no lesions Respiratory: no wheezing Cardiovascular: RRR Gastrointestinal: soft, non-tender, no distention, positive bowel sounds Musculoskeletal: no edema, pulses present Dx/Plan (1) Acute myocardial infarction Code(s): I21.9 - ACUTE MYOCARDIAL INFARCTION, UNSPECIFIED Status: Acute Comment: s/p CABG X5 ,06/25/17 (2) A-fib Code(s): I48.91 - UNSPECIFIED ATRIAL FIBRILLATION Status: Chronic Qualifiers: Atrial fibrillation type: paroxysmal Qualified Code(s): I48.0 - Paroxysmal atrial fibrillation (3) SHASTA (acute kidney injury) Code(s): N17.9 - ACUTE KIDNEY FAILURE, UNSPECIFIED Status: Acute (4) CKD (chronic kidney disease) Code(s): N18.9 - CHRONIC KIDNEY DISEASE, UNSPECIFIED Status: Chronic (5) HTN (hypertension) Code(s): I10 - ESSENTIAL (PRIMARY) HYPERTENSION Status: Chronic (6) BPH (benign prostatic hyperplasia) Code(s): N40.0 - BENIGN PROSTATIC HYPERPLASIA WITHOUT LOWER URINRY TRACT SYMP Status: Chronic - Plan DVT proph w/SCDs unfortunately will have to sedate to continue required life saving care -: cont meds per cariology & CTVS.Cardiac rehab -: hopefully home soon -: am labs -: dr. Westbrook notified * . Review of Systems - Review of Systems Other: difficult to obtain as he refuses to answer most questions - Medications/Allergies Allergies/Adverse Reactions: Allergies Allergy/AdvReac Type Severity Reaction Status Date / Time amoxicillin Allergy Verified 09/05/16 08:33 Medications: Current Medications Acetaminophen (Tylenol) 650 mg PO Q6H PRN PRN Reason: Headache/Fever or Pain Hydrocodone Bitart/Acetaminophen ([place] 5/325) 1 tab PO Q4H PRN PRN Reason: Moderate Pain (4-6) Hydrocodone Bitart/Acetaminophen ([place] 5/325) 2 tab PO Q4H PRN PRN Reason: Severe Pain (7-10) Last Admin: 06/27/17 02:07 Dose: 2 tab Al Hydroxide/Mg Hydroxide (Maalox) 30 ml PO Q4H PRN PRN Reason: Indigestion Albuterol/Ipratropium (Duoneb) 3 ml NEB Q6H PRN PRN Reason: Respiratory Distress Last Admin: 06/27/17 13:47 Dose: 3 ml Amiodarone HCl (Cordarone) 400 mg PO BID [facility] Last Admin: 06/27/17 08:23 Dose: 400 mg Artificial Tears (Tears Naturale) 0 drop EA EYE PRN PRN PRN Reason: Dry Eyes Aspirin (Ecotrin) 325 mg PO DAILY [facility] Last Admin: 06/27/17 08:23 Dose: 325 mg Atorvastatin Calcium (Lipitor) 40 mg PO [facility] Last Admin: 06/26/17 20:12 Dose: 40 mg Bisacodyl (Dulcolax) 10 mg PO Q12H PRN PRN Reason: Constipation Bisacodyl (Dulcolax) 10 mg [place] Q12H PRN PRN Reason: Constipation Carvedilol (Coreg) 6.25 mg PO BID-[facility] Last Admin: 06/27/17 08:23 Dose: 6.25 mg Diphenhydramine HCl (Benadryl) 25 mg PO Q6H PRN PRN Reason: Itching & Insomnia or Abdelrahman Francisco Famotidine (Pepcid) 20 mg PO Q24HR [facility] Fentanyl (Sublimaze) 25 mcg SLOW IVP Q2H PRN PRN Reason: Moderate breakthrough pain Stop: 06/28/17 12:55 Guaifenesin/Dextromethorphan (Robitussin Dm) 15 ml PO Q4H PRN PRN Reason: Cough Hydralazine HCl (Apresoline) 10 mg SLOW IVP Q6H PRN PRN Reason: To Maintain SBP< 140mmHG Last Admin: 06/25/17 22:02 Dose: 10 mg Magnesium Hydroxide (Milk Of Magnesium) 30 ml PO Q12H PRN PRN Reason: Constipation Mineral Oil (Fleet Mineral Oil) 133 ml [place] DAILYPRN PRN PRN Reason: Constipation Nitroglycerin (Nitrostat) 0.4 mg SL Q5MIN PRN PRN Reason: Chest Pain Ondansetron HCl (Zofran) 4 mg IVP Q6H PRN PRN Reason: Nausea/Vomiting Sodium Chloride (Flush - Normal Saline) 10 ml IVF PRN PRN PRN Reason: Saline Flush Sterile Water (Water For Injection) 2 ml FS Q4H PRN PRN Reason: DILUTE GEODON Last Admin: 06/27/17 13:33 Dose: 2 ml Tamsulosin HCl (Flomax) 0.4 mg PO DAILY [facility] Last Admin: 06/27/17 08:23 Dose: 0.4 mg Ziprasidone (Geodon) 20 mg IM Q4H PRN PRN Reason: Agitation Last Admin: 06/27/17 13:33 Dose: 20 mg Zolpidem Tartrate (Ambien) 5 mg PO HSPRN PRN PRN Reason: Insomnia
[2017-06-27] MEDS: hydrALAZINE 20 MG/ML VIAL SLOW IVP PRN (18:47)
[2017-06-27] MEDS: HYDROcodone/Acetaminophen 5/325 mg Tablet PO PRN (21:57)
[2017-06-27] MEDS: Atorvastatin Calcium 40 MG TAB PO SCH (21:59)
[2017-06-27] MEDS: Famotidine 20 MG TAB PO SCH (22:05)
[2017-06-28] MEDS: hydrALAZINE 20 MG/ML VIAL SLOW IVP PRN (01:21)
[2017-06-28 05:33] LABS: #Eosinphils 0.1 thou/uL (0.0-0.7); #Lymphocytes 1.3 thou/uL (1.20-3.40); #Monocytes 2.2 thou/uL (0.11-0.59); #Neutrophils 12.4 thou/uL (1.40-6.50); %Basophils 0.2 % (0.0-1.0); %Eosinophils 0.8 % (0.0-10.0); %Lymphocytes 8.1 % (21.0-51.0); %Monocytes 13.5 % (0.0-10.0); %Neutrophils 77.3 % (42.0-75.0); Hemoglobin 11.4 g/dL (14.0-18.0); Mean Corpuscular HGB CONC 32.8 g/dL (32.0-36.0); Mean Corpuscular Hemoglobin 31.5 pg (27.0-31.0); Mean Platelet Volume 8.5 fL (7.4-10.4); Platelet Count 201 thou/uL (130-400); Red Blood Cell (RBC) Count 3.64 mill/uL (4.70-6.10)
[2017-06-28 05:50] LABS: Anion Gap 13 mmol/L (10-20); BUN (Urea Nitrogen) 36 mg/dL (8.4-25.7); Calc. Creatinine Clearance 63 mL/min (70-130); Calcium 8.5 mg/dL (7.8-10.44); Carbon Dioxide 23 mmol/L (23-31); Chloride 103 mmol/L (98-107); Estimated GFR-MDRD 46; Glucose 116 mg/dL (83-110); Potassium 3.9 mmol/L (3.5-5.1); Sodium 135 mmol/L (136-145)
[2017-06-28] MEDS ORDERED: Potassium Chloride 20 MEQ TAB PO SCH (07:15)
[2017-06-28] MEDS ORDERED: Furosemide 40 MG/4 ML VIAL SLOW IVP SCH (07:15)
[2017-06-28] MEDS ORDERED: Potassium Chloride 10 MEQ TAB PO SCH (07:30)
--- NOTE | 2017-06-28 08:39 | PRG ---
DATE OF SERVICE: 06/28/2017 This morning he is awake, alert, responsive. He was confused last night. He is much better. PHYSICAL EXAMINATION: VITAL SIGNS: Sats 96% on 4 liters, respiratory rate of 19, blood pressure 150/79. CHEST: Chest reveals no wheezing or crackles. CARDIAC: Normal S1, S2. LABORTORY: Creatinine 1.48. White count 16,000. IMPRESSION: 1. Congestive heart failure, status post coronary artery bypass graft. 2. Obstructive sleep apnea. 3. Renal failure. 4. Encephalopathy. PLAN: Minimize pain medication. PT and supportive care. Nocturnal BiPAP. I will follow.
[2017-06-28] MEDS: Aspirin 325 mg Enteric Coated Tablet PO SCH (08:51)
[2017-06-28] MEDS: Amiodarone 200 MG TAB PO SCH ×2 (08:51→21:04)
[2017-06-28] MEDS: Carvedilol 6.25 MG TAB PO SCH ×2 (08:52→17:41)
[2017-06-28] MEDS: Tamsulosin HCl 0.4 MG CAP PO SCH (08:52)
[2017-06-28] MEDS: Doxycycline 100 MG CAP PO SCH ×2 (08:52→21:05)
--- NOTE | 2017-06-28 09:16 | PRG ---
DATE OF SERVICE: 06/28/2017 SUBJECTIVE: The patient was seen and examined at bedside. Also, his is in the room during my v isit. He seems to be doing better. He ate his breakfast. He knows where he is at, his mental condi tion is improving. OBJECTIVE: VITAL SIGNS: Blood pressure is 141/86, respiratory rate is 20, pulse is 87, temperature is 98.2 and O2 saturation is 96% on 3 liters by nasal cannula. HEENT: Head is atraumatic, normocephalic. Eyes are PERRLA. Sclerae nonicteric. Oral mucosa is sli ghtly dry. NECK: Supple, no lymphadenopathy. LUNGS: Breath sounds diminished at both bases with a few crackles bilaterally. No wheezing, no rale s. CARDIOVASCULAR: S1, S2 normal, no S3, no S4. ABDOMEN: Soft, nontender, nondistended. EXTREMITIES: No clubbing, cyanosis or edema. NEUROLOGIC: He is alert and oriented x3. There is not any sensorimotor deficit present. Cranial ne rves are intact. LABORATORY DATA: Showed white count of 16.0, hemoglobin 11.4, hematocrit 34.9, platelet count is 201 . Neutrophils 77.3. His sodium of 135, potassium 3.9, chloride 103, CO2 of 23, BUN 38, creatinine 0 .48, glucose 116, calcium 8.5. IMPRESSION: 1. Acute myocardial infarction, status post coronary artery bypass graft on 06/25/2017. 2. Atrial fibrillation, chronic, rate controlled. 3. Acute kidney injury, improved. 4. Hypertension, chronic. 5. Benign prostatic hypertrophy. 6. Encephalopathy, improved. His pain medications which could be contributing to his encephalopathy were stopped and he seems to be doing better. PLAN: We will continue his cardiac rehabilitation per Cardiothoracic team and will continue his noct urnal BiPAP.
[2017-06-28] MEDS ORDERED: Apixaban 5 MG TAB PO SCH (09:45)
--- NOTE | 2017-06-28 15:42 | PRG ---
DATE OF SERVICE: 06/28/2017 SUBJECTIVE: Apparently, Mr. Fontaine fell and it was found by his who briefly left the room and came back and she found him out of the chair on the floor with loss of control of urine, but not loss of consciousness. He was able to communicate with her. NOVA LARSEN was called. OBJECTIVE: VITAL SIGNS: Vitals at the time of NOVA LARSEN, blood pressure , pulse was 89, respiratory rate was 20, pulse oximetry is 94% on 4 liters by nasal cannula. His glucose was Accu-Chek'd and it was 1 45. GENERAL: He was examined by me personally. He had more confusion than this morning when I saw him. His speech was mumbled, but he was still able to follow my commands and make sense. HEAD: Atraumatic. I did not see any abrasions. EYES: Responding properly to light. NECK: Supple. LUNGS: Diminished at both bases. HEART: S1, S2 normal. ABDOMEN: Soft, nontender. NEUROLOGIC: He is somewhat confused. He knows that he is in the hospital. He is alert and oriented x2. He does not have any focal deficits, no sensory deficits. He is able to move his all 4 extremi ties. His cerebral function is somewhat sluggish bilaterally, but more pronounced on the right than on the left. Babinski sign is negative. IMPRESSION AND PLAN: Status post fall on the patient who is on anticoagulant, which is Eliquis 5 mg twice a day that is the reason why NOVA LARSEN was called. We will obtain a CT of the brain without c ontrast and will do neuro checks every 2 hours and act on the findings.
--- NOTE | 2017-06-28 15:58 | CT ---
HEAD CT WITHOUT CONTRAST 06/28/17 COMPARISON: None. HISTORY: Fall on anticoagulants. TECHNIQUE: Serial axial CT imaging obtained at 5 mm intervals from vertex through the skull base without contras t. FINDINGS: Polypoid mucosal thickening noted in alveolar recess of left maxillary sinus, incompletely imaged. There is atherosclerotic calcification of the cavernous carotid arteries. There is no displaced lewis rial fracture seen. There is no intracranial hemorrhage, midline shift, mass effect or ventricular enlargement. IMPRESSION: No intracranial hemorrhage noted. POS: SAUL
[2017-06-28] MEDS: Famotidine 20 MG TAB PO SCH (21:04)
[2017-06-28] MEDS: Atorvastatin Calcium 40 MG TAB PO SCH (21:05)
[2017-06-28] MEDS: Apixaban 5 MG TAB PO SCH (21:05)
[2017-06-29 05:41] LABS: #Eosinphils 0.3 thou/uL (0.0-0.7); #Lymphocytes 1.8 thou/uL (1.20-3.40); #Monocytes 1.8 thou/uL (0.11-0.59); #Neutrophils 9.7 thou/uL (1.40-6.50); %Basophils 0.3 % (0.0-1.0); %Eosinophils 2.2 % (0.0-10.0); %Lymphocytes 13.2 % (21.0-51.0); %Neutrophils 71.4 % (42.0-75.0); Hemoglobin 11.6 g/dL (14.0-18.0); Mean Corpuscular HGB CONC 33.7 g/dL (32.0-36.0); Mean Corpuscular Hemoglobin 32.1 pg (27.0-31.0); Mean Corpuscular Volume 95.2 fl (80.0-94.0); Mean Platelet Volume 7.8 fL (7.4-10.4); Platelet Count 257 thou/uL (130-400); Red Blood Cell (RBC) Count 3.62 mill/uL (4.70-6.10); White Blood Cell (WBC) Count 13.6 thou/uL (4.8-10.8)
[2017-06-29 05:52] LABS: Anion Gap 13 mmol/L (10-20); BUN (Urea Nitrogen) 40 mg/dL (8.4-25.7); Calc. Creatinine Clearance 62 mL/min (70-130); Calcium 8.7 mg/dL (7.8-10.44); Carbon Dioxide 25 mmol/L (23-31); Chloride 103 mmol/L (98-107); Estimated GFR-MDRD 48; Glucose 112 mg/dL (83-110); Potassium 4.1 mmol/L (3.5-5.1); Sodium 137 mmol/L (136-145)
[2017-06-29] MEDS ORDERED: Propofol 200 MG/20 ML VIAL ONE (07:00)
[2017-06-29] MEDS ORDERED: Diprivan 20 ML ONE (08:01)
[2017-06-29] MEDS ORDERED: Promethazine HCl 25 MG/ML VIAL SLOW IVP PRN (08:36)
[2017-06-29] MEDS ORDERED: Promethazine HCl 25 MG/ML VIAL IM PRN (08:36)
[2017-06-29] MEDS ORDERED: Ondansetron HCl/PF 4 MG/2 ML Vial IVP PRN (08:36)
[2017-06-29] MEDS ORDERED: Furosemide 20 MG TAB PO SCH (09:00)
--- NOTE | 2017-06-29 09:26 | PRG ---
DATE OF SERVICE: 06/29/2017 This morning he is status post DOROTA. He has some clots so he was not cardioverted. PHYSICAL EXAMINATION: VITAL SIGNS: His sats are 93 on room air, temperature 98, pulse 80, blood pressure 169/81. He said he had difficulty with his nasal mask yesterday. I suggest trying instead of full face, a n reyna mask. CHEST: Chest revealed decreased breath sounds, no wheezing. CARDIAC: Normal S1-S2. No gallops. ABDOMEN: Soft, no mass. IMPRESSION: 1. Status post coronary artery bypass graft. 2. Sleep apnea. 3. Atrial fibrillation. 4. Encephalopathy. PLAN: Continue nocturnal CPAP. Continue Eliquis, nebulizer treatments and supportive care. I will follow. Outpatient sleep study.
[2017-06-29] MEDS: Potassium Chloride 10 MEQ TAB PO SCH (09:37)
[2017-06-29] MEDS: Aspirin 81 mg Enteric Coated Tablet PO SCH (09:37)
[2017-06-29] MEDS: Doxycycline 100 MG CAP PO SCH ×2 (09:37→22:34)
[2017-06-29] MEDS: Tamsulosin HCl 0.4 MG CAP PO SCH (09:37)
[2017-06-29] MEDS: Amiodarone 200 MG TAB PO SCH ×2 (09:37→22:35)
[2017-06-29] MEDS: Apixaban 5 MG TAB PO SCH ×2 (09:38→22:34)
[2017-06-29] MEDS: Furosemide 20 MG TAB PO SCH (09:38)
[2017-06-29] MEDS: Carvedilol 6.25 MG TAB PO SCH ×2 (09:38→17:06)
--- NOTE | 2017-06-29 12:18 | PDOC.PN ---
- Subjective Encounter Start Date: 06/29/17 Encounter Start Time: 08:45 -: old records requested/rev Patient seen and examined. No new complaints. No overnight events - Objective Resuscitation Status: Resuscitation Status FULL:Full Resuscitation MAR Reviewed: Yes Vital Signs & Weight: Vital Signs (12 hours) Temp Pulse Resp BP BP Pulse Ox 06/29/17 09:38 161/93 H 06/29/17 09:05 98.3 F 78 22 H 161/93 H 97 06/29/17 07:45 98.3 F 81 22 H 93 L 06/29/17 07:10 98.3 F 81 22 H 165/91 H 93 L 06/29/17 04:00 98.1 F 83 20 168/97 H 98 Weight Admit Weight 212 lb 4.882 oz Weight 205 lb 11.2 oz Most Recent Monitor Data Heart Rate from ECG 79 NIBP 147/68 NIBP BP-Mean 116 Respiration from ECG 23 SpO2 90 I&O: 06/28/17 06/29/17 06/30/17 06:59 06:59 06:59 Intake Total 727 800 Output Total 2000 1350 Balance -1273 -550 Result Diagrams: 06/29/17 05:32 06/29/17 05:32 Additional Labs: Accuchecks 06/28/17 14:34 POC Glucose 145 H EKG Reviewed by me: Yes Phys Exam - Physical Examination Constitutional: NAD HEENT: PERRLA, moist MMs, sclera anicteric Neck: no JVD, supple Respiratory: no wheezing, no rales, no rhonchi Cardiovascular: no significant murmur, irregular Gastrointestinal: soft, non-tender, no distention, positive bowel sounds Musculoskeletal: no edema, pulses present Neurological: non-focal, normal sensation, moves all 4 limbs Psychiatric: normal affect, A&O x 3 Skin: no rash, normal turgor Dx/Plan (1) SHASTA (acute kidney injury) Code(s): N17.9 - ACUTE KIDNEY FAILURE, UNSPECIFIED Status: Acute (2) Acute myocardial infarction Code(s): I21.9 - ACUTE MYOCARDIAL INFARCTION, UNSPECIFIED Status: Acute Comment: s/p CABG X5 ,06/25/17 (3) A-fib Code(s): I48.91 - UNSPECIFIED ATRIAL FIBRILLATION Status: Chronic Qualifiers: Atrial fibrillation type: paroxysmal Qualified Code(s): I48.0 - Paroxysmal atrial fibrillation (4) BPH (benign prostatic hyperplasia) Code(s): N40.0 - BENIGN PROSTATIC HYPERPLASIA WITHOUT LOWER URINRY TRACT SYMP Status: Chronic (5) CKD (chronic kidney disease) Code(s): N18.9 - CHRONIC KIDNEY DISEASE, UNSPECIFIED Status: Chronic Qualifiers: Chronic kidney disease stage: stage 3 (moderate) Qualified Code(s): N18.3 - Chronic kidney disease, stage 3 (moderate) (6) HTN (hypertension) Code(s): I10 - ESSENTIAL (PRIMARY) HYPERTENSION Status: Chronic (7) CAD (coronary artery disease) Code(s): I25.10 - ATHSCL HEART DISEASE OF [place] CORONARY ARTERY W/O ANG PCTRS Status: Acute (8) S/P CABG x 5 Code(s): Z95.1 - PRESENCE OF AORTOCORONARY BYPASS GRAFT Status: Acute - Plan cont current plan of care, plan discussed w/ family * s/p DOROTA and found with thrombus * continue anticoagulation * medication reviewed as below * symptomatic treatment * pt prefer to go to [facility] after discharge * consult corrections caseworker. Review of Systems - Review of Systems ENT: negative: Ear Pain, Ear Discharge, Nose Pain, Nose Discharge, Nose Congestion, Mouth Pain, Mouth Swelling, Throat Pain, Throat Swelling, Other Respiratory: negative: Cough, Dry, Shortness of Breath, Hemoptysis, SOB with Excertion, Pleuritic Pain, Sputum, Wheezing Cardiovascular: negative: chest pain, palpitations, orthopnea, paroxysmal nocturnal dyspnea, edema, light headedness, other Gastrointestinal: negative: Nausea, Vomiting, Abdominal Pain, Diarrhea, Constipation, Melena, Hematochezia, Other Genitourinary: negative: Dysuria, Frequency, Incontinence, Hematuria, Retention , Other Musculoskeletal: negative: Neck Pain, Shoulder Pain, Arm Pain, Back Pain, Hand Pain, Leg Pain, Foot Pain, Other Skin: negative: Rash, Lesions, Vaughn, Bruising, Other - Medications/Allergies Allergies/Adverse Reactions: Allergies Allergy/AdvReac Type Severity Reaction Status Date / Time amoxicillin Allergy Verified 09/05/16 08:33 Medications: Current Medications Acetaminophen (Tylenol) 650 mg PO Q6H PRN PRN Reason: Headache/Fever or Pain Hydrocodone Bitart/Acetaminophen ([place] 5/325) 1 tab PO Q4H PRN PRN Reason: Moderate Pain (4-6) Last Admin: 06/27/17 21:57 Dose: 1 tab Hydrocodone Bitart/Acetaminophen ([place] 5/325) 2 tab PO Q4H PRN PRN Reason: Severe Pain (7-10) Last Admin: 06/27/17 02:07 Dose: 2 tab Al Hydroxide/Mg Hydroxide (Maalox) 30 ml PO Q4H PRN PRN Reason: Indigestion Albuterol/Ipratropium (Duoneb) 3 ml NEB Q6H PRN PRN Reason: Respiratory Distress Last Admin: 06/27/17 22:18 Dose: 3 ml Amiodarone HCl (Cordarone) 400 mg PO BID [facility] Last Admin: 06/29/17 09:37 Dose: 400 mg Apixaban (Eliquis) 5 mg PO BID [facility] Last Admin: 06/29/17 09:38 Dose: 5 mg Artificial Tears (Tears Naturale) 0 drop EA EYE PRN PRN PRN Reason: Dry Eyes Aspirin (Ecotrin) 81 mg PO DAILY [facility] Last Admin: 06/29/17 09:37 Dose: 81 mg Atorvastatin Calcium (Lipitor) 40 mg PO HS [facility] Last Admin: 06/28/17 21:05 Dose: 40 mg Bisacodyl (Dulcolax) 10 mg PO Q12H PRN PRN Reason: Constipation Bisacodyl (Dulcolax) 10 mg [place] Q12H PRN PRN Reason: Constipation Carvedilol (Coreg) 25 mg PO BID[facility] Last Admin: 06/29/17 09:38 Dose: 25 mg Diphenhydramine HCl (Benadryl) 25 mg PO Q6H PRN PRN Reason: Itching & Insomnia or Abdelrahman Francisco Doxycycline Hyclate (Vibramycin) 100 mg PO BID [facility] Stop: 07/03/17 09:01 Last Admin: 06/29/17 09:37 Dose: 100 mg Famotidine (Pepcid) 20 mg PO Q24HR [facility] Last Admin: 06/28/17 21:04 Dose: 20 mg Furosemide (Lasix) 40 mg PO DAILY [facility] Last Admin: 06/29/17 09:38 Dose: 40 mg Guaifenesin/Dextromethorphan (Robitussin Dm) 15 ml PO Q4H PRN PRN Reason: Cough Hydralazine HCl (Apresoline) 10 mg SLOW IVP Q6H PRN PRN Reason: To Maintain SBP< 140mmHG Last Admin: 06/28/17 01:21 Dose: 10 mg Magnesium Hydroxide (Milk Of Magnesium) 30 ml PO Q12H PRN PRN Reason: Constipation Mineral Oil (Fleet Mineral Oil) 133 ml [place] DAILYPRN PRN PRN Reason: Constipation Nitroglycerin (Nitrostat) 0.4 mg SL Q5MIN PRN PRN Reason: Chest Pain Ondansetron HCl (Zofran) 4 mg IVP Q6H PRN PRN Reason: Nausea/Vomiting Potassium Chloride (Klor-Con 10) 10 meq PO QAM-WM [facility] Last Admin: 06/29/17 09:37 Dose: 10 meq Sodium Chloride (Flush - Normal Saline) 10 ml IVF PRN PRN PRN Reason: Saline Flush Sterile Water (Water For Injection) 2 ml FS Q4H PRN PRN Reason: DILUTE GEODON Last Admin: 06/27/17 13:33 Dose: 2 ml Tamsulosin HCl (Flomax) 0.4 mg PO DAILY [facility] Last Admin: 06/29/17 09:37 Dose: 0.4 mg Zolpidem Tartrate (Ambien) 5 mg PO HSPRN PRN PRN Reason: Insomnia
--- NOTE | 2017-06-29 13:40 | ECHO ---
TRANSESOPHAGEAL ECHOCARDIOGRAM: DATE OF PROCEDURE: 06/29/17 INDICATION: Paroxysmal atrial fibrillation and cardiomyopathy. DESCRIPTION OF PROCEDURE: The patient was taken to the PACU. The patient was sedated by anesthesiology. A transesophageal probe was placed in the distal esophagus and stomach. Echocardiographic images were obtained. The transesophageal probe was removed. FINDINGS: 1. Moderate decrease in left ventricular systolic function. 2. Left ventricle is mildly dilated. 3. Normal aortic and mitral valves. 4. Mild mitral regurgitation. 5. Mild tricuspid regurgitation. 6. Small thrombus is noted in left atrial appendage. 7. Atherosclerotic debris in the descending aorta. IMPRESSION: Formed thrombus in left atrial appendage.
[2017-06-29] MEDS: Atorvastatin Calcium 40 MG TAB PO SCH (22:34)
[2017-06-29] MEDS: Famotidine 20 MG TAB PO SCH (22:35)
[2017-06-30 06:12] LABS: Anion Gap 10 mmol/L (10-20); BUN (Urea Nitrogen) 36 mg/dL (8.4-25.7); Calc. Creatinine Clearance 62 mL/min (70-130); Calcium 8.5 mg/dL (7.8-10.44); Carbon Dioxide 26 mmol/L (23-31); Chloride 104 mmol/L (98-107); Estimated GFR-MDRD 50; Glucose 119 mg/dL (83-110); Potassium 3.7 mmol/L (3.5-5.1); Sodium 136 mmol/L (136-145)
[2017-06-30 06:20] LABS: Eosinophils 1 % (0-10); Hemoglobin 10.9 g/dL (14.0-18.0); Lymphocytes 16 % (21-51); MDiff Complete? YES; Mean Corpuscular HGB CONC 33.2 g/dL (32.0-36.0); Mean Corpuscular Hemoglobin 31.6 pg (27.0-31.0); Mean Corpuscular Volume 95.4 fl (80.0-94.0); Mean Platelet Volume 7.8 fL (7.4-10.4); Microcytosis SLIGHT = 6-15 cells (100X) (0-5/hpf); Monocytes 12 % (0-10); Neutrophil 71 % (42-75); Nucleated RBC 1 % (0); PLT Morphology Comment Appears Adequate; Platelet Count 269 thou/uL (130-400); Red Blood Cell (RBC) Count 3.45 mill/uL (4.70-6.10); White Blood Cell (WBC) Count 10.5 thou/uL (4.8-10.8)
[2017-06-30] MEDS: HYDROcodone/Acetaminophen 5/325 mg Tablet PO PRN (07:08)
[2017-06-30] MEDS: Apixaban 5 MG TAB PO SCH ×2 (09:17→20:12)
[2017-06-30] MEDS: Furosemide 20 MG TAB PO SCH (09:17)
[2017-06-30] MEDS: Aspirin 81 mg Enteric Coated Tablet PO SCH (09:17)
[2017-06-30] MEDS: Carvedilol 6.25 MG TAB PO SCH ×2 (09:18→17:51)
[2017-06-30] MEDS: Doxycycline 100 MG CAP PO SCH ×2 (09:19→20:12)
[2017-06-30] MEDS: Tamsulosin HCl 0.4 MG CAP PO SCH (09:19)
[2017-06-30] MEDS: Potassium Chloride 10 MEQ TAB PO SCH (09:19)
[2017-06-30] MEDS: Amiodarone 200 MG TAB PO SCH ×2 (09:19→20:12)
[2017-06-30] MEDS ORDERED: Furosemide 40 MG/4 ML VIAL SLOW IVP SCH ×2 (10:38→19:30)
--- NOTE | 2017-06-30 10:59 | PDOC.PN ---
- Subjective Encounter Start Date: 06/30/17 Encounter Start Time: 08:10 Patient seen and examined. No overnight events this morning pt has wheezing - Objective Resuscitation Status: Resuscitation Status FULL:Full Resuscitation MAR Reviewed: Yes Vital Signs & Weight: Vital Signs (12 hours) Temp Pulse Resp BP BP Pulse Ox 06/30/17 09:18 177/91 H 06/30/17 08:30 98.7 F 61 24 H 177/91 H 95 06/30/17 04:23 63 16 97 06/30/17 04:20 97.4 F L 63 18 183/84 H 95 06/30/17 01:21 98 Weight Admit Weight 212 lb 4.882 oz Weight 210 lb Most Recent Monitor Data Heart Rate from ECG 79 NIBP 147/68 NIBP BP-Mean 116 Respiration from ECG 23 SpO2 90 I&O: 06/29/17 06/30/17 07/01/17 06:59 06:59 06:59 Intake Total 800 200 Output Total 1350 300 Balance -550 -100 Result Diagrams: 06/30/17 05:30 06/30/17 05:30 EKG Reviewed by me: Yes Phys Exam - Physical Examination Constitutional: NAD HEENT: PERRLA, moist MMs, sclera anicteric Neck: no JVD, supple Respiratory: no rales, wheezing present Cardiovascular: RRR, no significant murmur, no rub surgical site clean Gastrointestinal: soft, non-tender, no distention, positive bowel sounds Musculoskeletal: no edema, pulses present Neurological: non-focal, normal sensation, moves all 4 limbs Psychiatric: normal affect, A&O x 3 Skin: no rash, normal turgor Dx/Plan (1) Acute myocardial infarction Code(s): I21.9 - ACUTE MYOCARDIAL INFARCTION, UNSPECIFIED Status: Acute Comment: s/p CABG X5 ,06/25/17 (2) A-fib Code(s): I48.91 - UNSPECIFIED ATRIAL FIBRILLATION Status: Chronic Qualifiers: Atrial fibrillation type: paroxysmal Qualified Code(s): I48.0 - Paroxysmal atrial fibrillation (3) BPH (benign prostatic hyperplasia) Code(s): N40.0 - BENIGN PROSTATIC HYPERPLASIA WITHOUT LOWER URINRY TRACT SYMP Status: Chronic (4) HTN (hypertension) Code(s): I10 - ESSENTIAL (PRIMARY) HYPERTENSION Status: Chronic (5) CAD (coronary artery disease) Code(s): I25.10 - ATHSCL HEART DISEASE OF [place] CORONARY ARTERY W/O ANG PCTRS Status: Acute (6) S/P CABG x 5 Code(s): Z95.1 - PRESENCE OF AORTOCORONARY BYPASS GRAFT Status: Acute (7) Acute systolic heart failure Code(s): I50.21 - ACUTE SYSTOLIC (CONGESTIVE) HEART FAILURE Status: Acute (8) Acute worsening of stage 3 chronic kidney disease Code(s): N18.3 - CHRONIC KIDNEY DISEASE, STAGE 3 (MODERATE) Status: Acute (9) Thrombsis of left atrial appendage following myocardial infarction Code(s): I23.6 - THOMBOS OF ATRIUM/AURIC APPEND/VENTR CURRENT COMP FOL AMI Status: Acute - Plan cont current plan of care, PT/OT, executive secretary social welfare * will need swing bed on discharge * give duoneb, lasix one time and keep duoneb q 6 hourly * medication reviewed as below * symptomatic treatment * will monitor. Review of Systems - Review of Systems Constitutional: weakness. negative: fever, chills, sweats, malaise, other ENT: negative: Ear Pain, Ear Discharge, Nose Pain, Nose Discharge, Nose Congestion, Mouth Pain, Mouth Swelling, Throat Pain, Throat Swelling, Other Respiratory: Cough, Shortness of Breath, SOB with Excertion, Wheezing. negative : Dry, Hemoptysis, Pleuritic Pain, Sputum Cardiovascular: negative: chest pain, palpitations, orthopnea, paroxysmal nocturnal dyspnea, edema, light headedness, other Gastrointestinal: negative: Nausea, Vomiting, Abdominal Pain, Diarrhea, Constipation, Melena, Hematochezia, Other Genitourinary: negative: Dysuria, Frequency, Incontinence, Hematuria, Retention , Other Musculoskeletal: negative: Neck Pain, Shoulder Pain, Arm Pain, Back Pain, Hand Pain, Leg Pain, Foot Pain, Other Skin: negative: Rash, Lesions, Vaughn, Bruising, Other - Medications/Allergies Allergies/Adverse Reactions: Allergies Allergy/AdvReac Type Severity Reaction Status Date / Time amoxicillin Allergy Verified 09/05/16 08:33 Medications: Current Medications Acetaminophen (Tylenol) 650 mg PO Q6H PRN PRN Reason: Headache/Fever or Pain Hydrocodone Bitart/Acetaminophen ([place] 5/325) 1 tab PO Q4H PRN PRN Reason: Moderate Pain (4-6) Last Admin: 03/24/18 07:08 Dose: 1 tab Hydrocodone Bitart/Acetaminophen ([place] 5/325) 2 tab PO Q4H PRN PRN Reason: Severe Pain (7-10) Last Admin: 06/27/17 02:07 Dose: 2 tab Al Hydroxide/Mg Hydroxide (Maalox) 30 ml PO Q4H PRN PRN Reason: Indigestion Albuterol/Ipratropium (Duoneb) 3 ml NEB [id number] CAROL Albuterol/Ipratropium (Duoneb) 3 ml NEB ONE [facility] Stop: 06/30/17 12:00 Amiodarone HCl (Cordarone) 400 mg PO BID [facility] Last Admin: 06/30/17 09:19 Dose: 400 mg Apixaban (Eliquis) 5 mg PO BID [facility] Last Admin: 06/30/17 09:17 Dose: 5 mg Artificial Tears (Tears Naturale) 0 drop EA EYE PRN PRN PRN Reason: Dry Eyes Aspirin (Ecotrin) 81 mg PO DAILY [facility] Last Admin: 06/30/17 09:17 Dose: 81 mg Atorvastatin Calcium (Lipitor) 40 mg PO HS [facility] Last Admin: 06/29/17 22:34 Dose: 40 mg Bisacodyl (Dulcolax) 10 mg PO Q12H PRN PRN Reason: Constipation Bisacodyl (Dulcolax) 10 mg [place] Q12H PRN PRN Reason: Constipation Carvedilol (Coreg) 25 mg PO BID[facility] Last Admin: 06/30/17 09:18 Dose: 25 mg Diphenhydramine HCl (Benadryl) 25 mg PO Q6H PRN PRN Reason: Itching & Insomnia or Abdelrahman Francisco Doxycycline Hyclate (Vibramycin) 100 mg PO BID [facility] Stop: 07/03/17 09:01 Last Admin: 06/30/17 09:19 Dose: 100 mg Famotidine (Pepcid) 20 mg PO Q24HR [facility] Last Admin: 06/29/17 22:35 Dose: 20 mg Furosemide (Lasix) 40 mg PO DAILY [facility] Last Admin: 06/30/17 09:17 Dose: 40 mg Furosemide (Lasix) 40 mg SLOW IVP 1038 [facility] Stop: 06/30/17 12:00 Guaifenesin/Dextromethorphan (Robitussin Dm) 15 ml PO Q4H PRN PRN Reason: Cough Last Admin: 06/30/17 07:09 Dose: 15 ml Hydralazine HCl (Apresoline) 10 mg SLOW IVP Q6H PRN PRN Reason: To Maintain SBP< 140mmHG Last Admin: 06/28/17 01:21 Dose: 10 mg Magnesium Hydroxide (Milk Of Magnesium) 30 ml PO Q12H PRN PRN Reason: Constipation Mineral Oil (Fleet Mineral Oil) 133 ml [place] DAILYPRN PRN PRN Reason: Constipation Nitroglycerin (Nitrostat) 0.4 mg SL Q5MIN PRN PRN Reason: Chest Pain Ondansetron HCl (Zofran) 4 mg IVP Q6H PRN PRN Reason: Nausea/Vomiting Potassium Chloride (Klor-Con 10) 10 meq PO QAM-WM [facility] Last Admin: 06/30/17 09:19 Dose: 10 meq Sodium Chloride (Flush - Normal Saline) 10 ml IVF PRN PRN PRN Reason: Saline Flush Sterile Water (Water For Injection) 2 ml FS Q4H PRN PRN Reason: DILUTE GEODON Last Admin: 06/27/17 13:33 Dose: 2 ml Tamsulosin HCl (Flomax) 0.4 mg PO DAILY [facility] Last Admin: 06/30/17 09:19 Dose: 0.4 mg Zolpidem Tartrate (Ambien) 5 mg PO HSPRN PRN PRN Reason: Insomnia
--- NOTE | 2017-06-30 14:37 | PRG ---
DATE OF SERVICE: 06/30/2017 SUBJECTIVE: The patient is doing fairly well. He has not gotten out of bed today, but did get out o f bed yesterday. OBJECTIVE: VITAL SIGNS: Temperature is 97.8, pulse 55, respirations 20, O2 sat 98% on 2 liters, and blood press ure 152/75. HEENT: Unremarkable. NECK: No JVD. CHEST: Coarse rhonchi. CARDIAC: S1 and S2, regular. ABDOMEN: Soft. EXTREMITIES: No edema. LABORATORY DATA: White blood cell count 10.5, hematocrit 32.9, and platelet count 269. Sodium 136, potassium 3.7, chloride 104, CO2 of 26, BUN 36, creatinine 1.4, glucose 119. ASSESSMENT: 1. Status post coronary artery bypass grafting surgery. 2. Obstructive sleep apnea. 3. Atrial fibrillation. 4. Encephalopathy. PLAN: He is continuing nocturnal CPAP. His nebulization treatments are currently every 6 hours. In crease activity as tolerated.
--- NOTE | 2017-06-30 19:19 | PDOC.CTH ---
Cardiology Progress Note - Subjective He is more SOb today as compared to yesterday. He has not had a BM. - Objective Vital Signs Temp Pulse Pulse Pulse Resp BP BP 06/30/17 19:01 06/30/17 18:59 06/30/17 16:44 58 L 57 L 160/73 H 06/30/17 16:15 98.1 F 59 L 20 06/30/17 14:34 64 20 06/30/17 11:56 06/30/17 11:54 55 L 20 06/30/17 11:50 97.8 F 56 L 20 06/30/17 09:18 177/91 H 06/30/17 08:30 98.7 F 61 24 H BP BP Pulse Ox Pulse Ox Pulse Ox 06/30/17 19:01 97 06/30/17 18:59 97 06/30/17 16:44 160/79 H 99 97 06/30/17 16:15 158/77 H 97 06/30/17 14:34 06/30/17 11:56 98 06/30/17 11:54 98 06/30/17 11:50 152/75 H 97 06/30/17 09:18 06/30/17 08:30 177/91 H 95 Admit Weight 212 lb 4.882 oz Weight 210 lb 06/29/17 06/30/17 07/01/17 06:59 06:59 06:59 Intake Total 800 200 Output Total 1350 300 Balance -550 -100 - Physical Examination General/Neuro: alert & oriented x3, NAD Neck: no JVD present Lungs: unlabored respirations Heart: other: (Irrgeluar) Abdomen: NT/ND Extremities: + edema B (1+) - Telemetry Telemetry Rhythm: NSR - Labs Result Diagrams: 06/30/17 05:30 06/30/17 05:30 Troponin/CKMB Troponin I 204.915 ng/mL (< 0.028) H* 06/22/17 15:17 - Assessment/Plan 1. Acute M 2. Multivessel CAD s/p CABG 3. Afib 4. JUAN M thrombus. 5. Ischemic CM PLAN: - Continue amiodarone and Eliquis - Continue aspirin/statin/BB/ACEI. - Will do KUB - IV lasix.
--- NOTE | 2017-06-30 20:10 | RAD ---
AP ABDOMINAL RADIOGRAPH: 06/30/17 HISTORY: Abdominal distention. FINDINGS: The upper as well as right lateral abdomen are partially excluded from view. Bowel gas pattern is non specific. There is a small amount of retained fecal material seen in the region of the descending co darvin and the rectum. No dilated loops of small bowel are appreciated on this exam. Monitor leads overl ie the abdomen. No suspicious calcifications are seen. Mild degenerative changes are seen in the spin e. Vascular calcifications overlie the pelvis. IMPRESSION: Nonspecific bowel gas pattern. POS: GIULIANA
[2017-06-30] MEDS: Atorvastatin Calcium 40 MG TAB PO SCH (20:12)
[2017-06-30] MEDS: Famotidine 20 MG TAB PO SCH (20:13)
[2017-07-01] MEDS: hydrALAZINE 20 MG/ML VIAL SLOW IVP PRN ×2 (05:25→17:19)
[2017-07-01 06:16] LABS: #Basophils 0.1 thou/uL (0.0-0.2); #Eosinphils 0.3 thou/uL (0.0-0.7); #Lymphocytes 1.5 thou/uL (1.20-3.40); #Monocytes 1.6 thou/uL (0.11-0.59); #Neutrophils 7.1 thou/uL (1.40-6.50); %Basophils 0.7 % (0.0-1.0); %Eosinophils 2.4 % (0.0-10.0); %Lymphocytes 14.2 % (21.0-51.0); %Monocytes 14.8 % (0.0-10.0); %Neutrophils 67.8 % (42.0-75.0); Hemoglobin 12.1 g/dL (14.0-18.0); Mean Corpuscular HGB CONC 33.3 g/dL (32.0-36.0); Mean Corpuscular Hemoglobin 31.7 pg (27.0-31.0); Mean Corpuscular Volume 95.2 fl (80.0-94.0); Mean Platelet Volume 7.6 fL (7.4-10.4); Platelet Count 273 thou/uL (130-400); RBC Distribution Width 11.8 % (11.5-14.5); Red Blood Cell (RBC) Count 3.81 mill/uL (4.70-6.10); White Blood Cell (WBC) Count 10.5 thou/uL (4.8-10.8)
[2017-07-01 06:37] LABS: Anion Gap 11 mmol/L (10-20); BUN (Urea Nitrogen) 31 mg/dL (8.4-25.7); Calc. Creatinine Clearance 64 mL/min (70-130); Calcium 8.5 mg/dL (7.8-10.44); Carbon Dioxide 26 mmol/L (23-31); Chloride 103 mmol/L (98-107); Estimated GFR-MDRD 53; Glucose 108 mg/dL (83-110); Potassium 3.3 mmol/L (3.5-5.1); Sodium 137 mmol/L (136-145)
[2017-07-01] MEDS ORDERED: Potassium Chloride 20 MEQ TAB PO SCH (07:15)
[2017-07-01] MEDS: Apixaban 5 MG TAB PO SCH ×2 (08:21→21:10)
[2017-07-01] MEDS: Doxycycline 100 MG CAP PO SCH ×2 (08:21→21:10)
[2017-07-01] MEDS: Carvedilol 6.25 MG TAB PO SCH ×2 (08:22→17:18)
[2017-07-01] MEDS: Amiodarone 200 MG TAB PO SCH ×2 (08:22→21:10)
[2017-07-01] MEDS: Aspirin 81 mg Enteric Coated Tablet PO SCH (08:22)
[2017-07-01] MEDS: Tamsulosin HCl 0.4 MG CAP PO SCH (08:22)
[2017-07-01] MEDS: Lisinopril 5 MG TAB PO SCH ×2 (08:22→21:11)
[2017-07-01] MEDS: Potassium Chloride 10 MEQ TAB PO SCH (08:23)
[2017-07-01] MEDS: HYDROcodone/Acetaminophen 5/325 mg Tablet PO PRN (08:23)
[2017-07-01] MEDS ORDERED: Fleet Enema 133 ML BOT PR SCH (09:00)
--- NOTE | 2017-07-01 10:20 | PDOC.PN ---
- Subjective Encounter Start Date: 07/01/17 Encounter Start Time: 08:50 c/o back pain, c/o constipation, dyspnea is better no fever, no chest pain, c/o pain at right ankle posterior aspect Patient seen and examined. No overnight events - Objective Resuscitation Status: Resuscitation Status FULL:Full Resuscitation MAR Reviewed: Yes Vital Signs & Weight: Vital Signs (12 hours) Temp Pulse Resp BP BP Pulse Ox 07/01/17 08:22 62 174/76 H 07/01/17 07:15 98.8 F 62 20 174/76 H 97 07/01/17 06:56 97 07/01/17 06:54 62 28 H 97 07/01/17 05:25 61 07/01/17 04:40 98.1 F 61 18 181/86 H 94 L 07/01/17 02:18 97 Weight Admit Weight 212 lb 4.882 oz Weight 203 lb 12.8 oz Most Recent Monitor Data Heart Rate from ECG 79 NIBP 147/68 NIBP BP-Mean 116 Respiration from ECG 23 SpO2 90 I&O: 06/30/17 07/01/17 07/02/17 06:59 06:59 06:59 Intake Total 200 Output Total 300 Balance -100 Result Diagrams: 07/01/17 06:08 07/01/17 06:08 Radiology Reviewed by me: Yes (xray abdomen) EKG Reviewed by me: Yes Phys Exam - Physical Examination Constitutional: NAD HEENT: PERRLA, moist MMs, sclera anicteric Neck: no JVD, supple Respiratory: no wheezing, no rales, no rhonchi Cardiovascular: RRR, no significant murmur, no rub left vest in place Gastrointestinal: soft, non-tender, no distention, positive bowel sounds Musculoskeletal: no edema, pulses present Dx/Plan (1) Acute myocardial infarction Code(s): I21.9 - ACUTE MYOCARDIAL INFARCTION, UNSPECIFIED Status: Acute Comment: s/p CABG X5 ,06/25/17 (2) A-fib Code(s): I48.91 - UNSPECIFIED ATRIAL FIBRILLATION Status: Chronic Qualifiers: Atrial fibrillation type: paroxysmal Qualified Code(s): I48.0 - Paroxysmal atrial fibrillation (3) BPH (benign prostatic hyperplasia) Code(s): N40.0 - BENIGN PROSTATIC HYPERPLASIA WITHOUT LOWER URINRY TRACT SYMP Status: Chronic (4) HTN (hypertension) Code(s): I10 - ESSENTIAL (PRIMARY) HYPERTENSION Status: Chronic (5) CAD (coronary artery disease) Code(s): I25.10 - ATHSCL HEART DISEASE OF [place] CORONARY ARTERY W/O ANG PCTRS Status: Acute (6) S/P CABG x 5 Code(s): Z95.1 - PRESENCE OF AORTOCORONARY BYPASS GRAFT Status: Acute (7) Acute systolic heart failure Code(s): I50.21 - ACUTE SYSTOLIC (CONGESTIVE) HEART FAILURE Status: Acute (8) Acute worsening of stage 3 chronic kidney disease Code(s): N18.3 - CHRONIC KIDNEY DISEASE, STAGE 3 (MODERATE) Status: Acute (9) 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 mag is normal, renal function improving * discussed with Review of Systems - Review of Systems Constitutional: weakness. negative: fever, chills, sweats, malaise, other ENT: negative: Ear Pain, Ear Discharge, Nose Pain, Nose Discharge, Nose Congestion, Mouth Pain, Mouth Swelling, Throat Pain, Throat Swelling, Other Respiratory: negative: Cough, Dry, Shortness of Breath, Hemoptysis, SOB with Excertion, Pleuritic Pain, Sputum, Wheezing Cardiovascular: negative: chest pain, palpitations, orthopnea, paroxysmal nocturnal dyspnea, edema, light headedness, other Gastrointestinal: Constipation. negative: Nausea, Vomiting, Abdominal Pain, Diarrhea, Melena, Hematochezia, Other Genitourinary: negative: Dysuria, Frequency, Incontinence, Hematuria, Retention , Other Musculoskeletal: Back Pain. negative: Neck Pain, Shoulder Pain, Arm Pain, Hand Pain, Leg Pain, Foot Pain, Other Skin: negative: Rash, Lesions, Vaughn, Bruising, Other Neurological: negative: Weakness, Numbness, Incoordination, Change in Speech, Confusion, Seizures, Other - Medications/Allergies Allergies/Adverse Reactions: Allergies Allergy/AdvReac Type Severity Reaction Status Date / Time amoxicillin Allergy Verified 09/05/16 08:33 Medications: Current Medications Acetaminophen (Tylenol) 650 mg PO Q6H PRN PRN Reason: Headache/Fever or Pain Hydrocodone Bitart/Acetaminophen ([place] 5/325) 1 tab PO Q4H PRN PRN Reason: Moderate Pain (4-6) Last Admin: 07/01/17 08:23 Dose: 1 tab Hydrocodone Bitart/Acetaminophen ([place] 5/325) 2 tab PO Q4H PRN PRN Reason: Severe Pain (7-10) Last Admin: 06/27/17 02:07 Dose: 2 tab Al Hydroxide/Mg Hydroxide (Maalox) 30 ml PO Q4H PRN PRN Reason: Indigestion Albuterol/Ipratropium (Duoneb) 3 ml NEB [id number] [facility] Last Admin: 07/01/17 06:54 Dose: 3 ml Amiodarone HCl (Cordarone) 400 mg PO BID [facility] Last Admin: 07/01/17 08:22 Dose: 400 mg Apixaban (Eliquis) 5 mg PO BID [facility] Last Admin: 07/01/17 08:21 Dose: 5 mg Artificial Tears (Tears Naturale) 0 drop EA EYE PRN PRN PRN Reason: Dry Eyes Aspirin (Ecotrin) 81 mg PO DAILY [facility] Last Admin: 07/01/17 08:22 Dose: 81 mg Atorvastatin Calcium (Lipitor) 40 mg PO HS [facility] Last Admin: 06/30/17 20:12 Dose: 40 mg Bisacodyl (Dulcolax) 10 mg PO Q12H PRN PRN Reason: Constipation Bisacodyl (Dulcolax) 10 mg LA Q12H PRN PRN Reason: Constipation Carvedilol (Coreg) 25 mg PO BID-[facility] Last Admin: 07/01/17 08:22 Dose: 25 mg Diphenhydramine HCl (Benadryl) 25 mg PO Q6H PRN PRN Reason: Itching & Insomnia or Abdelrahman Francisco Doxycycline Hyclate (Vibramycin) 100 mg PO BID [facility] Stop: 07/03/17 09:01 Last Admin: 07/01/17 08:21 Dose: 100 mg Famotidine (Pepcid) 20 mg PO Q24HR [facility] Last Admin: 06/30/17 20:13 Dose: 20 mg Furosemide (Lasix) 40 mg SLOW IVP 0600,1400 [facility] Guaifenesin/Dextromethorphan (Robitussin Dm) 15 ml PO Q4H PRN PRN Reason: Cough Last Admin: 06/30/17 07:09 Dose: 15 ml Hydralazine HCl (Apresoline) 10 mg SLOW IVP Q6H PRN PRN Reason: To Maintain SBP< 140mmHG Last Admin: 07/01/17 05:25 Dose: 10 mg Lisinopril (Zestril) 5 mg PO BID [facility] Last Admin: 07/01/17 08:22 Dose: 5 mg Magnesium Hydroxide (Milk Of Magnesium) 30 ml PO Q12H PRN PRN Reason: Constipation Mineral Oil (Fleet Mineral Oil) 133 ml LA DAILYPRN PRN PRN Reason: Constipation Nitroglycerin (Nitrostat) 0.4 mg SL Q5MIN PRN PRN Reason: Chest Pain Ondansetron HCl (Zofran) 4 mg IVP Q6H PRN PRN Reason: Nausea/Vomiting Polyethylene Glycol (Miralax) 17 gm PO DAILY [facility] Potassium Chloride (Klor-Con 10) 10 meq PO QAM-WM [facility] Last Admin: 07/01/17 08:23 Dose: Not Given Sodium Biphosphate/Sodium Phosphate (Fleet Enema) 133 ml LA NOW [facility] Stop: 07/01/17 11:00 Sodium Chloride (Flush - Normal Saline) 10 ml IVF PRN PRN PRN Reason: Saline Flush Sterile Water (Water For Injection) 2 ml FS Q4H PRN PRN Reason: DILUTE GEODON Last Admin: 06/27/17 13:33 Dose: 2 ml Tamsulosin HCl (Flomax) 0.4 mg PO DAILY [facility] Last Admin: 07/01/17 08:22 Dose: 0.4 mg Zolpidem Tartrate (Ambien) 5 mg PO HSPRN PRN PRN Reason: Insomnia
[2017-07-01] MEDS: Polyethylene Glycol 3350 17 GM Packet PO SCH (10:31)
--- NOTE | 2017-07-01 13:22 | PRG ---
DATE OF SERVICE: 07/01/2017 SUBJECTIVE: The patient is having difficulty with constipation. He is very tired. OBJECTIVE: VITAL SIGNS: Temperature 97.6, pulse 55, respiratory rate 18, O2 sat 96%, and blood pressure 129/66. HEENT: Unremarkable. NECK: No JVD. LUNGS: Clear. CARDIAC: S1 and S2, regular. ABDOMEN: Obese, soft. Bowel sounds hypoactive. EXTREMITIES: Trace edema. LABORATORY DATA: White blood cell count 10.5, hematocrit 36.3, platelet count 273. Sodium 137, pota ssium 3.3, chloride 103, CO2 of 26, BUN 31, creatinine 1.3, and glucose 108. ASSESSMENT: 1. Status post coronary artery bypass grafting surgery with severe deconditioning. 2. Obstructive sleep apnea. 3. Atrial fibrillation. PLAN: 1. Continue nocturnal CPAP. 2. He will need extensive rehabilitation before returning home. Right now, he does not seem to have the strength to undergo that. 3. We would recommend minimizing sleeping pills and pain medicines as much possible.
[2017-07-01] MEDS: Furosemide 40 MG/4 ML VIAL SLOW IVP SCH (14:17)
--- NOTE | 2017-07-01 18:07 | PDOC.CTH ---
Cardiology Progress Note - Subjective He feels much better after having an enema. no chest pain. Breathing better with diuresis. - Objective Vital Signs Temp Pulse Pulse Resp BP BP BP 07/01/17 17:19 70 196/86 H 07/01/17 17:18 196/86 H 07/01/17 16:55 98.4 F 70 26 H 196/86 H 07/01/17 15:11 60 184/84 H 07/01/17 13:46 68 20 07/01/17 11:52 97.6 F 55 L 18 129/66 07/01/17 08:22 62 174/76 H 07/01/17 07:15 98.8 F 62 20 174/76 H 07/01/17 06:56 07/01/17 06:54 62 28 H Pulse Ox Pulse Ox 07/01/17 17:19 07/01/17 17:18 07/01/17 16:55 95 07/01/17 15:11 96 07/01/17 13:46 07/01/17 11:52 96 07/01/17 08:22 07/01/17 07:15 97 07/01/17 06:56 97 07/01/17 06:54 97 Admit Weight 212 lb 4.882 oz Weight 203 lb 12.8 oz 06/30/17 07/01/17 07/02/17 06:59 06:59 06:59 Intake Total 200 Output Total 300 Balance -100 - Physical Examination General/Neuro: alert & oriented x3, NAD Neck: carotid US brisk Lungs: unlabored respirations Heart: RRR Abdomen: NT/ND Extremities: + edema B (1+) - Telemetry Telemetry Rhythm: NSR - Labs Result Diagrams: 07/01/17 06:08 07/01/17 06:08 Troponin/CKMB Troponin I 204.915 ng/mL (< 0.028) H* 06/22/17 15:17 - Assessment/Plan 1. Acute M 2. Multivessel CAD s/p CABG 3. Afib 4. JUAN M thrombus. 5. Ischemic CM 6. Constipation, improved. PLAN: - Continue amiodarone and Eliquis - Continue aspirin/statin/BB/ACEI. - Replace K. - Continue IV lasix.
[2017-07-01] MEDS: Atorvastatin Calcium 40 MG TAB PO SCH (21:10)
[2017-07-01] MEDS: Famotidine 20 MG TAB PO SCH (21:14)
[2017-07-02] MEDS: Furosemide 40 MG/4 ML VIAL SLOW IVP SCH ×2 (05:11→14:53)
[2017-07-02 05:16] LABS: #Eosinphils 0.2 thou/uL (0.0-0.7); #Lymphocytes 1.8 thou/uL (1.20-3.40); #Monocytes 1.5 thou/uL (0.11-0.59); #Neutrophils 9.7 thou/uL (1.40-6.50); %Basophils 0.3 % (0.0-1.0); %Eosinophils 1.3 % (0.0-10.0); %Lymphocytes 13.4 % (21.0-51.0); %Monocytes 11.3 % (0.0-10.0); %Neutrophils 73.6 % (42.0-75.0); Hemoglobin 12.5 g/dL (14.0-18.0); Mean Corpuscular HGB CONC 33.7 g/dL (32.0-36.0); Mean Corpuscular Hemoglobin 31.8 pg (27.0-31.0); Mean Corpuscular Volume 94.5 fl (80.0-94.0); Mean Platelet Volume 7.4 fL (7.4-10.4); Platelet Count 301 thou/uL (130-400); RBC Distribution Width 12.1 % (11.5-14.5); Red Blood Cell (RBC) Count 3.92 mill/uL (4.70-6.10); White Blood Cell (WBC) Count 13.2 thou/uL (4.8-10.8)
[2017-07-02 05:30] LABS: Anion Gap 11 mmol/L (10-20); BUN (Urea Nitrogen) 28 mg/dL (8.4-25.7); Calc. Creatinine Clearance 62 mL/min (70-130); Calcium 8.7 mg/dL (7.8-10.44); Carbon Dioxide 26 mmol/L (23-31); Chloride 103 mmol/L (98-107); Estimated GFR-MDRD 51; Glucose 111 mg/dL (83-110); Potassium 3.6 mmol/L (3.5-5.1); Sodium 136 mmol/L (136-145)
[2017-07-02] MEDS: Apixaban 5 MG TAB PO SCH (08:29)
[2017-07-02] MEDS: Doxycycline 100 MG CAP PO SCH (08:29)
[2017-07-02] MEDS: Polyethylene Glycol 3350 17 GM Packet PO SCH (08:29)
[2017-07-02] MEDS: Potassium Chloride 10 MEQ TAB PO SCH (08:30)
[2017-07-02] MEDS: Carvedilol 6.25 MG TAB PO SCH ×2 (08:30→17:59)
[2017-07-02] MEDS: Lisinopril 5 MG TAB PO SCH (08:30)
[2017-07-02] MEDS: Tamsulosin HCl 0.4 MG CAP PO SCH (08:30)
[2017-07-02] MEDS: Aspirin 81 mg Enteric Coated Tablet PO SCH (08:31)
[2017-07-02] MEDS: Amiodarone 200 MG TAB PO SCH (08:31)
--- NOTE | 2017-07-02 09:11 | PRG ---
DATE OF SERVICE: 07/02/2017 This morning he is better, no further shortness of breath. PHYSICAL EXAMINATION: VITAL SIGNS: Blood pressure is 170/77, sats 90% on room air, respirations 21. CHEST: Chest revealed decreased breath sounds, no wheezing. CARDIAC: Normal S1-S2. No gallops. ABDOMEN: No masses. LABORATORY: Creatinine 1.36. White count 13,000. IMPRESSION: 1. Status post coronary artery bypass graft. 2. Cardiomyopathy. 3. Atrial fibrillation. 4. Sleep apnea. 5. Bronchitis. PLAN: He will be discharged home. Follow up with Cardiology. Pulmonary is planning to see him back within the next 4 weeks to schedule outpatient sleep study. Antibiotic treatment, discontinue after several days.
--- NOTE | 2017-07-02 09:55 | RAD ---
CHEST ONE VIEW: HISTORY: Congestive heart failure. COMPARISON: Chest radiograph from 06/27/2017. FINDINGS: There is a new LifeVest projecting over the chest. Heart size is enlarged. Small effusions. The central venous catheter tip is at the cavoatrial junction. No pneumothorax. No acute osseous ab normality. IMPRESSION: No significant change in the radiographic appearance of the chest, aside from a new LifeVest. POS: SAUL
--- NOTE | 2017-07-02 11:26 | PDOC.PN ---
- Subjective Encounter Start Date: 07/02/17 Encounter Start Time: 08:40 Patient seen and examined. No new complaints. No overnight events - Objective Resuscitation Status: Resuscitation Status FULL:Full Resuscitation MAR Reviewed: Yes Vital Signs & Weight: Vital Signs (12 hours) Temp Pulse Resp BP BP Pulse Ox 07/02/17 08:30 63 170/77 H 07/02/17 08:00 98.0 F 63 21 H 170/77 H 93 L 07/02/17 07:21 96 07/02/17 07:19 62 16 96 07/02/17 03:20 98.4 F 61 16 161/76 H 95 07/01/17 23:38 62 16 96 Weight Admit Weight 212 lb 4.882 oz Weight 203 lb 12.8 oz Most Recent Monitor Data Heart Rate from ECG 79 NIBP 147/68 NIBP BP-Mean 116 Respiration from ECG 23 SpO2 90 I&O: 07/01/17 07/02/17 07/03/17 06:59 06:59 06:59 Intake Total 240 Balance 240 Result Diagrams: 07/02/17 05:05 07/02/17 05:05 EKG Reviewed by me: Yes Phys Exam - Physical Examination Constitutional: NAD HEENT: PERRLA, moist MMs, sclera anicteric Neck: no JVD, supple Respiratory: no wheezing, no rales, no rhonchi Cardiovascular: RRR, no significant murmur, no rub Gastrointestinal: soft, non-tender, no distention, positive bowel sounds Musculoskeletal: no edema, pulses present Neurological: non-focal, normal sensation, moves all 4 limbs Psychiatric: normal affect, A&O x 3 Skin: no rash, normal turgor Dx/Plan (1) Acute myocardial infarction Code(s): I21.9 - ACUTE MYOCARDIAL INFARCTION, UNSPECIFIED Status: Acute Comment: s/p CABG X5 ,06/25/17 (2) A-fib Code(s): I48.91 - UNSPECIFIED ATRIAL FIBRILLATION Status: Chronic Qualifiers: Atrial fibrillation type: paroxysmal Qualified Code(s): I48.0 - Paroxysmal atrial fibrillation (3) BPH (benign prostatic hyperplasia) Code(s): N40.0 - BENIGN PROSTATIC HYPERPLASIA WITHOUT LOWER URINRY TRACT SYMP Status: Chronic (4) HTN (hypertension) Code(s): I10 - ESSENTIAL (PRIMARY) HYPERTENSION Status: Chronic (5) CAD (coronary artery disease) Code(s): I25.10 - ATHSCL HEART DISEASE OF [place] CORONARY ARTERY W/O ANG PCTRS Status: Acute (6) S/P CABG x 5 Code(s): Z95.1 - PRESENCE OF AORTOCORONARY BYPASS GRAFT Status: Acute (7) Acute systolic heart failure Code(s): I50.21 - ACUTE SYSTOLIC (CONGESTIVE) HEART FAILURE Status: Acute (8) Acute worsening of stage 3 chronic kidney disease Code(s): N18.3 - CHRONIC KIDNEY DISEASE, STAGE 3 (MODERATE) Status: Acute (9) Thrombsis of left atrial appendage following myocardial infarction Code(s): I23.6 - THOMBOS OF ATRIUM/AURIC APPEND/VENTR CURRENT COMP FOL AMI Status: Acute (10) Constipation Code(s): K59.00 - CONSTIPATION, UNSPECIFIED Status: Resolved - Plan cont current plan of care, plan discussed w/ family, PT/OT, social sciences professor * medication reviewed as below * symptomatic treatment * await swing bed approval * if cardiology and CT surgeon ok will consider discharge * chest xray done and reviewed * discussed with . Review of Systems - Review of Systems ENT: negative: Ear Pain, Ear Discharge, Nose Pain, Nose Discharge, Nose Congestion, Mouth Pain, Mouth Swelling, Throat Pain, Throat Swelling, Other Respiratory: negative: Cough, Dry, Shortness of Breath, Hemoptysis, SOB with Excertion, Pleuritic Pain, Sputum, Wheezing Cardiovascular: negative: chest pain, palpitations, orthopnea, paroxysmal nocturnal dyspnea, edema, light headedness, other Gastrointestinal: negative: Nausea, Vomiting, Abdominal Pain, Diarrhea, Constipation, Melena, Hematochezia, Other Genitourinary: negative: Dysuria, Frequency, Incontinence, Hematuria, Retention , Other Musculoskeletal: negative: Neck Pain, Shoulder Pain, Arm Pain, Back Pain, Hand Pain, Leg Pain, Foot Pain, Other Skin: negative: Rash, Lesions, Vaughn, Bruising, Other - Medications/Allergies Allergies/Adverse Reactions: Allergies Allergy/AdvReac Type Severity Reaction Status Date / Time amoxicillin Allergy Verified 09/05/16 08:33 Medications: Current Medications Acetaminophen (Tylenol) 650 mg PO Q6H PRN PRN Reason: Headache/Fever or Pain Hydrocodone Bitart/Acetaminophen ([place] 5/325) 1 tab PO Q4H PRN PRN Reason: Moderate Pain (4-6) Last Admin: 07/01/17 08:23 Dose: 1 tab Hydrocodone Bitart/Acetaminophen ([place] 5/325) 2 tab PO Q4H PRN PRN Reason: Severe Pain (7-10) Last Admin: 06/27/17 02:07 Dose: 2 tab Al Hydroxide/Mg Hydroxide (Maalox) 30 ml PO Q4H PRN PRN Reason: Indigestion Albuterol/Ipratropium (Duoneb) 3 ml NEB [id number] [facility] Last Admin: 07/02/17 07:19 Dose: 3 ml Amiodarone HCl (Cordarone) 400 mg PO BID [facility] Last Admin: 07/02/17 08:31 Dose: 400 mg Apixaban (Eliquis) 5 mg PO BID [facility] Last Admin: 07/02/17 08:29 Dose: 5 mg Artificial Tears (Tears Naturale) 0 drop EA EYE PRN PRN PRN Reason: Dry Eyes Aspirin (Ecotrin) 81 mg PO DAILY [facility] Last Admin: 07/02/17 08:31 Dose: 81 mg Atorvastatin Calcium (Lipitor) 40 mg PO HS [facility] Last Admin: 07/01/17 21:10 Dose: 40 mg Bisacodyl (Dulcolax) 10 mg PO Q12H PRN PRN Reason: Constipation Bisacodyl (Dulcolax) 10 mg LA Q12H PRN PRN Reason: Constipation Carvedilol (Coreg) 25 mg PO BID-[facility] Last Admin: 07/02/17 08:30 Dose: 25 mg Diphenhydramine HCl (Benadryl) 25 mg PO Q6H PRN PRN Reason: Itching & Insomnia or Abdelrahman Francisco Doxycycline Hyclate (Vibramycin) 100 mg PO BID [facility] Stop: 07/03/17 09:01 Last Admin: 07/02/17 08:29 Dose: 100 mg Famotidine (Pepcid) 20 mg PO Q24HR [facility] Last Admin: 07/01/17 21:14 Dose: 20 mg Furosemide (Lasix) 40 mg SLOW IVP 0600,1400 [facility] Last Admin: 07/02/17 05:11 Dose: 40 mg Guaifenesin/Dextromethorphan (Robitussin Dm) 15 ml PO Q4H PRN PRN Reason: Cough Last Admin: 06/30/17 07:09 Dose: 15 ml Hydralazine HCl (Apresoline) 10 mg SLOW IVP Q6H PRN PRN Reason: To Maintain SBP< 140mmHG Last Admin: 07/01/17 17:19 Dose: 10 mg Lisinopril (Zestril) 5 mg PO BID [facility] Last Admin: 07/02/17 08:30 Dose: 5 mg Magnesium Hydroxide (Milk Of Magnesium) 30 ml PO Q12H PRN PRN Reason: Constipation Mineral Oil (Fleet Mineral Oil) 133 ml LA DAILYPRN PRN PRN Reason: Constipation Nitroglycerin (Nitrostat) 0.4 mg SL Q5MIN PRN PRN Reason: Chest Pain Ondansetron HCl (Zofran) 4 mg IVP Q6H PRN PRN Reason: Nausea/Vomiting Polyethylene Glycol (Miralax) 17 gm PO DAILY [facility] Last Admin: 07/02/17 08:29 Dose: 17 gm Potassium Chloride (Klor-Con 10) 10 meq PO QA-[facility] Last Admin: 07/02/17 08:30 Dose: 10 meq Sodium Chloride (Flush - Normal Saline) 10 ml IVF PRN PRN PRN Reason: Saline Flush Sterile Water (Water For Injection) 2 ml FS Q4H PRN PRN Reason: DILUTE GEODON Last Admin: 06/27/17 13:33 Dose: 2 ml Tamsulosin HCl (Flomax) 0.4 mg PO DAILY [facility] Last Admin: 07/02/17 08:30 Dose: 0.4 mg Zolpidem Tartrate (Ambien) 5 mg PO HSPRN PRN PRN Reason: Insomnia
--- NOTE | 2017-07-02 15:31 | DIS ---
DATE OF ADMISSION: 06/22/2017 DATE OF DISCHARGE: 07/02/2017 PRIMARY CARE PHYSICIAN: Dr. Adam Cisse. DISCHARGE DISPOSITION: Home. PRIMARY DISCHARGE DIAGNOSES: 1. Acute myocardial infarction. 2. Acute systolic heart failure. 3. Acute on chronic kidney failure, baseline chronic kidney disease stage 3. 4. Multivessel coronary artery disease. 5. Status post coronary artery bypass graft x5. 6. Thrombosis of left atrial appendage. 7. Atrial fibrillation. 8. Significant constipation. SECONDARY DISCHARGE DIAGNOSES: Hypertension, benign enlargement of prostate, chronic kidney disease stage III. PRIMARY PROCEDURE/OPERATION: Cardiac catheterization was done by Dr. Cook. CABG was performed [place]. Transesophageal echocardiography was performed by Dr. Le. RADIOLOGICAL INVESTIGATION: Echocardiography, chest x-ray, CT brain, abdomen x-ray. SIGNIFICANT LABORATORY DATA: Hemoglobin 12.5, INR 1.2, creatinine 1.36. BNP 2497, LDL 171. DISCHARGE MEDICATIONS: Tylenol #3 one or two tablets p.o. q.6 hourly p.r.n., Eliquis 5 mg p.o. b.i.d ., aspirin 81 mg p.o. daily, Lipitor 40 mg p.o. at bedtime, Coreg 25 mg p.o. b.i.d., Lasix 40 mg p.o. b.i.d., lisinopril 5 mg p.o. b.i.d., omeprazole 20 mg p.o. daily, MiraLax 17 grams p.o. daily, potas sium chloride 10 mEq p.o. daily, Aldactone 25 mg p.o. daily, Flomax 0.4 mg p.o. at bedtime, Zanaflex one or two tablets q.4 hourly p.r.n. CONTRAINDICATIONS: None. CODE STATUS: FULL CODE. INPATIENT CONSULTANTS: Dr. Cook was consulted for acute MS. Dr. Turcios was following because soniya ent was admitted in ICU. Dr. [place] was consulted for CABG. TEST RESULTS PENDING ON DISCHARGE: None. ALLERGIES: AMOXICILLIN. DISCHARGE PLAN: Post hospital, the patient is planned for discharge to home. Subsequently, patient will follow up with Cardiology Dr. Westbrook and Dr. Cook as instructed. HOSPITAL COURSE: A 76-year-old male who initially went to [facility] where he went for acute MS. He was given thrombolytics there and subsequently he was transferred to our hospital. Cardiolo gy recommended to admit this patient under medical service. We admitted this patient. Please see my H&P for further detail. Dr. Cook did cardiac catheterization and patient was found with multive ssel CAD. Patient required CABG. The patient remained in CCU and that is why Dr. Turcios was following while in hospital. This patient was requiring nocturnal CPAP because they were suspecting sleep apne a and that is why he will need outpatient sleep study. Patient had acute congestive heart failure as well, which was treated with diuretic therapy. He was also having atrial fibrillation with rapid ve ntricular response and that is why he required beta julius therapy. Initially, plan was made to do cardioversion, but when we did a transesophageal echocardiography we found thrombus in left atrial ap pendage and that is why cardioversion was not done and the patient was kept on anticoagulation therap y. Above-mentioned medication adjustment was done while in hospital. He was complicated by significant constipation that required Fleet enema and after that the patient was doing very well. Initially, th is patient was planned to go to [place] swing bed, but as patient was doing much better and that is why he was declined by his insurance to go to [place] swing bed and we are considering he is disch arged to home with outpatient cardiac rehabilitation. The patient is seen and examined at bedside today. Please see my progress note from today for furthe r details. All new medication prescription sent to his pharmacy.
[2017-07-02 16:20] VITALS: TEMP 98.2
[2017-07-02 18:00] VITALS: BP 149/77
[2017-07-03 18:32] LABS: Actual Bicarbonate (HCO3a) 23.6 mEq/L (22-26); Analyzer IN Cardio OR; Base Excess (BEa) -0.9 mEq/L (0 (+/-) 2.5); CO2 Tension 38.7 mmHg (35.0-45.0); Calcium, Ionized 1.1 mmol/L (1.12-1.30); Hematocrit-ABG 48.9 % (42.0-52.0); Hemoglobin (Hb) 15.8 g/dL (14.0-18.0); O2 Tension (PaO2) 102.5 mmHg (80.0-100.0); Puncture Site ALINE
[2017-07-03 18:33] LABS: Actual Bicarbonate (HCO3a) 22.7 mEq/L (22-26); Analyzer IN Cardio OR; Base Excess (BEa) -1.5 mEq/L (0 (+/-) 2.5); CO2 Tension 36.9 mmHg (35.0-45.0); Calcium, Ionized 1.1 mmol/L (1.12-1.30); Hematocrit-ABG 40.4 % (42.0-52.0); Hemoglobin (Hb) 13.2 g/dL (14.0-18.0); O2 Tension (PaO2) 137.7 mmHg (80.0-100.0); Puncture Site ALINE; pH, Arterial 7.41 (7.35-7.45)
[2017-07-03 18:34] LABS: Actual Bicarbonate (HCO3a) 26.3 mEq/L (22-26); Analyzer IN Cardio OR; CO2 Tension 44.9 mmHg (35.0-45.0); Hematocrit-ABG 33.4 % (42.0-52.0); Hemoglobin (Hb) 11.4 g/dL (14.0-18.0); Puncture Site ALINE; pH, Arterial 7.39 (7.35-7.45)
[2017-07-03 18:34] LABS: Analyzer IN Cardio OR
[2017-07-03 18:35] LABS: Actual Bicarbonate (HCO3v) 28 mEq/L (22-26); Base Excess 1.5 mEq/L (0 (+/- 2.5)); Hematocrit-VBG 35.1 % (37-51); pH (venous) 7.36 (7.35-7.45)
[2017-07-03 18:36] LABS: CO2 Tension 47.7 mmHg (35.0-45.0); O2 Tension (PaO2) 338.3 mmHg (80.0-100.0); pH, Arterial 7.35 (7.35-7.45)
[2017-07-03 18:36] LABS: Calcium, Ionized 1.02 mmol/L (1.16-1.32); Chloride (ABG LAB) 98 mmol/L (98-106); Potassium - ABG Lab 4.5 mmol/L (3.70-5.30); Sodium 135.2 mmol/L (133-146)
[2017-07-03 18:37] LABS: Actual Bicarbonate (HCO3a) 25.9 mEq/L (22-26); Analyzer IN Cardio OR; Calcium, Ionized 1.1 mmol/L (1.12-1.30); Hematocrit-ABG 34.9 % (42.0-52.0); Hemoglobin (Hb) 11.4 g/dL (14.0-18.0); Puncture Site ALINE
[2017-07-03 18:37] LABS: pH, Arterial 7.37 (7.35-7.45)
[2017-07-03 18:38] LABS: Actual Bicarbonate (HCO3a) 23.1 mEq/L (22-26); Base Excess (BEa) -2.1 mEq/L (0 (+/-) 2.5); CO2 Tension 41.1 mmHg (35.0-45.0); Hematocrit-ABG 33.5 % (42.0-52.0); Hemoglobin (Hb) 11.2 g/dL (14.0-18.0); O2 Tension (PaO2) 145.5 mmHg (80.0-100.0)
[2017-07-03 18:40] LABS: Analyzer IN Cardio OR; Calcium, Ionized 1.2 mmol/L (1.12-1.30); Puncture Site ALINE
[2017-07-03 18:40] LABS: Actual Bicarbonate (HCO3v) 25 mEq/L (22-26); Analyzer IN Cardio OR; Base Excess -1.2 mEq/L (0 (+/- 2.5)); Hematocrit-VBG 36.1 % (37-51); Hemoglobin (Hb) 12.1 g/dL (12.6-17.4); pH (venous) 7.32 (7.35-7.45)
[2017-07-03 18:41] LABS: Calcium, Ionized 1.39 mmol/L (1.16-1.32); Chloride (ABG LAB) 99 mmol/L (98-106); Potassium - ABG Lab 4.2 mmol/L (3.70-5.30); Sodium 138.7 mmol/L (133-146)
== END 2017-07-02 18:38 | disposition home or self-care (01) | DRG 233 ==
LOC: ERS 05:31 → CCU 07:48 → IMCU/EMU 06-26 21:30 → 2NO 06-27 11:09
PROVIDERS: ADMIT Internal Medicine; ATTEND Internal Medicine
PROC: 4A023N7 Measurement of Cardiac Sampling and Pressure, Left Heart, Percutaneous Approach (ICD-10-PCS; principal; 2017-06-22)
PROC: B2111ZZ Fluoroscopy of Multiple Coronary Arteries using Low Osmolar Contrast (ICD-10-PCS; 2017-06-22)
PROC: B2151ZZ Fluoroscopy of Left Heart using Low Osmolar Contrast (ICD-10-PCS; 2017-06-22)
PROC: 021309W Bypass Coronary Artery, Four or More Arteries from Aorta with Autologous Venous Tissue, Open Approach (ICD-10-PCS; 2017-06-25)
PROC: 02100Z9 Bypass Coronary Artery, One Artery from Left Internal Mammary, Open Approach (ICD-10-PCS; 2017-06-25)
PROC: 06BQ4ZZ Excision of Left Saphenous Vein, Percutaneous Endoscopic Approach (ICD-10-PCS; 2017-06-25)
PROC: 5A1221Z Performance of Cardiac Output, Continuous (ICD-10-PCS; 2017-06-25)
PROC: B24BZZ4 Ultrasonography of Heart with Aorta, Transesophageal (ICD-10-PCS; 2017-06-29)
PROC: 5A09357 Assistance with Respiratory Ventilation, Less than 24 Consecutive Hours, Continuous Positive Airway Pressure (ICD-10-PCS; 2017-06-29)
DX: I21.09 ST elevation (STEMI) myocardial infarction involving other coronary artery of anterior wall (principal); I50.23 Acute on chronic systolic (congestive) heart failure; G93.40 Encephalopathy, unspecified; N17.9 Acute kidney failure, unspecified; I23.7 Postinfarction angina; I42.8 Other cardiomyopathies; I47.1 Supraventricular tachycardia; I25.118 Atherosclerotic heart disease of native coronary artery with other forms of angina pectoris; I11.0 Hypertensive heart disease with heart failure; Z87.891 Personal history of nicotine dependence; Z92.82 Status post administration of tPA (rtPA) in a different facility within the last 24 hours prior to admission to current facility; N40.0 Benign prostatic hyperplasia without lower urinary tract symptoms; K21.9 Gastro-esophageal reflux disease without esophagitis; Z98.1 Arthrodesis status; E78.5 Hyperlipidemia, unspecified; I51.3 Intracardiac thrombosis, not elsewhere classified; K59.00 Constipation, unspecified; G47.33 Obstructive sleep apnea (adult) (pediatric); Z79.01 Long term (current) use of anticoagulants; E66.9 Obesity, unspecified; Z68.33 Body mass index [BMI] 33.0-33.9, adult; I25.5 Ischemic cardiomyopathy; J40 Bronchitis, not specified as acute or chronic
CPT/HCPCS: 36415; 36416; 36430; 70450; 71045; 74018; 80048; 80053; 80061; 81001; 82805; 83036; 83735; 83880; 84100; 84443; 84484; 85014; 85018; 85025; 85049; 85347; 85610; 85730; 86850; 86900; 86901; 92960; 93005; 93010; 93306; 93312; 93458; 93798; 94002; 94150; 94640; 94660; 94760; 96361; 96365; 96366; 99152; A4216; C1769; J0282; J0360; J1644; J1650; J1815; J1885; J1940; J1956; J2001; J2250; J2260; J2270; J2405; J2440; J2704; J2720; J3010; J3370; J3475; J3480; J3486; J7050; J7070; J7620; P9016; P9045; S0017

== ENCOUNTER 2018-01-07 09:56 | Day surgery (SDC) | payer MEDICARE, OTHER ==
[2018-01-07] MEDS ORDERED: PROPOFOL 200 MG/20 ML VIAL ONE (12:22)
[2018-01-07] MEDS ORDERED: PROPOFOL 20 ML ONE (12:45)
--- NOTE | 2018-01-08 21:32 | ECHO ---
The patient 77-year-old gentleman with paroxysmal atrial fibrillation and a history of a thrombus. DESCRIPTION OF PROCEDURE: The patient taken to the PACU. The patient sedated by anesthesiology. A transesophageal probe was pl aced in the distal esophagus and stomach. Echocardiographic images were obtained and the transesopha geal probe was removed. FINDINGS: 1. Mild to moderate decrease in left ventricular systolic function. 2. The apex is hypokinetic. 3. Left atrial enlargement. 4. The aortic valve leaflets are mildly thickened. 5. Mild mitral regurgitation. 6. Mild tricuspid regurgitation. 7. Trivial aortic regurgitation. 8. No thrombus noted in the left atrium or left atrial appendage. 9. Atherosclerotic debris in the descending aorta. IMPRESSION: No formed thrombus in the left atrium or left atrial appendage.
== END 2018-01-07 13:55 | disposition home or self-care (01) ==
LOC: CCL 09:56
PROVIDERS: ATTEND Internal Medicine Cardiovascular Disease
PROC: B24BZZ4 Ultrasonography of Heart with Aorta, Transesophageal (ICD-10-PCS; principal; 2018-01-07)
DX: I48.0 Paroxysmal atrial fibrillation (principal); I48.1 Persistent atrial fibrillation; I08.3 Combined rheumatic disorders of mitral, aortic and tricuspid valves; I10 Essential (primary) hypertension; K21.9 Gastro-esophageal reflux disease without esophagitis; E78.00 Pure hypercholesterolemia, unspecified; G47.33 Obstructive sleep apnea (adult) (pediatric); N40.0 Benign prostatic hyperplasia without lower urinary tract symptoms; I25.5 Ischemic cardiomyopathy; Z79.01 Long term (current) use of anticoagulants; Z79.02 Long term (current) use of antithrombotics/antiplatelets; Z79.899 Other long term (current) drug therapy; Z88.0 Allergy status to penicillin; Z95.1 Presence of aortocoronary bypass graft
CPT/HCPCS: 93312; J2704

== ENCOUNTER 2018-01-14 13:30 | Inpatient (IN) | payer MEDICARE, OTHER ==
[2018-01-14 11:24] VITALS: BMI 27.6
[2018-01-16 09:30] LABS: #Basophils 0.1 thou/uL (0.0-0.2); #Eosinphils 0.4 thou/uL (0.0-0.7); #Monocytes 0.7 thou/uL (0.11-0.59); #Neutrophils 3.9 thou/uL (1.40-6.50); %Lymphocytes 28.3 % (21.0-51.0); %Monocytes 10.2 % (0.0-10.0); %Neutrophils 54.5 % (42.0-75.0); Hemoglobin 14.3 g/dL (14.0-18.0); Mean Corpuscular HGB CONC 32.4 g/dL (32.0-36.0); Mean Corpuscular Hemoglobin 30.3 pg (27.0-31.0); Mean Corpuscular Volume 93.6 fL (78.0-98.0); Platelet Count 225 thou/uL (130-400); RBC Distribution Width 12.6 % (11.5-14.5); Red Blood Cell (RBC) Count 4.71 mill/uL (4.70-6.10); White Blood Cell (WBC) Count 7.1 thou/uL (4.8-10.8)
[2018-01-16 09:39] LABS: Anion Gap 11 mmol/L (10-20); BUN (Urea Nitrogen) 24 mg/dL (8.4-25.7); Calc. Creatinine Clearance 62 mL/min (70-130); Calcium 9.5 mg/dL (7.8-10.44); Carbon Dioxide 21 mmol/L (23-31); Chloride 112 mmol/L (98-107); Estimated GFR-MDRD 58; Glucose 103 mg/dL (83-110); Potassium 4.3 mmol/L (3.5-5.1); Sodium 140 mmol/L (136-145)
[2018-01-16] MEDS ORDERED: Midazolam HCl 2 mg/2 ml Vial ONE (12:08)
[2018-01-16] MEDS ORDERED: Fentanyl 100 MCG/2 ML VIAL ONE ×2 (12:08→14:31)
[2018-01-16] MEDS ORDERED: Heparin 5,000 UNITS/ML VIAL ONE (12:25)
[2018-01-16] MEDS ORDERED: Protamine Sulfate 50 MG/5 ML VIAL ONE (12:25)
[2018-01-16] MEDS ORDERED: Levofloxacin 500 mg/D5W 100 ml Premix Bag ONE (12:32)
[2018-01-16] MEDS ORDERED: Clindamycin/D5W 900 mg/50 ml Premix Bag ONE (12:32)
[2018-01-16] MEDS ORDERED: Bupivacaine HCl 0.5%/Epinephrine 1:200,000/PF 30 ml Vial ONE (13:02)
--- NOTE | 2018-01-16 14:25 | OP ---
DATE OF PROCEDURE: 01/16/2018 PREOPERATIVE DIAGNOSES: Peripheral vascular disease with an external iliac, common femoral, superficial femoral, and profunda femoris near occlusion calcification. POSTOPERATIVE DIAGNOSES: Peripheral vascular disease with an external iliac, common femoral, superficial femoral, and profunda femoris near occlusion calcification. PROCEDURE: External iliac/common femoral endarterectomy with patch angioplasty. SURGEON: Ap Westbrook M.D. ANESTHESIA: General endotracheal. ESTIMATED BLOOD LOSS: 200 mL. DRAINS: None. SPECIMENS: None. PROCEDURE IN DETAIL: After consent was obtained, the patient was brought to the operating room and placed in supine position on the operating room table. Appropriate anesthetic monitor was placed and general endotracheal anesthesia induced. Right groin was prepped and draped in usual sterile fashion. Skin incision was made over the common femoral artery. Dissection to the common femoral artery was taken with electrocautery. Common femoral, profunda femoris , and superficial femoral arteries were carefully exposed. The inguinal ligament was elevated and external iliac exposed allowing for clamping of the external iliac where the artery was soft 7500 units of heparin was given. External iliac, profunda femoris, and superficial femoral arteries were serially clamped. Incision was made on the common femoral extended up to just proximal to the proximal most calcification in the external iliac artery. The incision was extended down toward the superficial femoral artery. We crossed the orifice of the superficial femoral artery. Endarterectomy was performed with mosquito hemostats. The orifice of the profunda was also cleared of calcification. A good tapered distal endpoint was obtained at the just distal to the orifice of the superficial femoral artery. Bovine pericardial patch was sewn in place with running 5-0 Prolene suture. Multiple 6-0 Prolenes were placed for hemostasis. Clamps were removed. Antegrade flow reestablished. Protamine was administered. Hemostasis was ensured. There was a palpable pulse in the superficial femoral and profunda femoris at completion. Wounds were irrigated, closed in layers and Dermabond applied to the skin. The patient was awakened, extubated, and transferred to recovery room in stable condition. [facility]
[2018-01-16] MEDS ORDERED: Ondansetron HCl/PF 4 MG/2 ML Vial IVP PRN ×2 (14:27→15:45)
[2018-01-16] MEDS ORDERED: hydrALAZINE 20 MG/ML VIAL SLOW IVP PRN (15:45)
[2018-01-16] MEDS ORDERED: Polyethylene Glycol 3350 17 GM Packet PO PRN (15:45)
[2018-01-16] MEDS ORDERED: HYDROcodone/Acetaminophen 5/325 mg Tablet PO PRN ×2 (15:45)
[2018-01-16] MEDS ORDERED: Acetaminophen 325 MG TAB PO PRN (15:45)
[2018-01-16] MEDS ORDERED: Promethazine HCl 25 MG/ML VIAL IM PRN (15:45)
[2018-01-16] MEDS ORDERED: Fentanyl 100 MCG/2 ML VIAL SLOW IVP PRN ×2 (15:45)
[2018-01-16] MEDS ORDERED: Promethazine HCl 25 MG/ML VIAL PR PRN (15:45)
[2018-01-16] MEDS: D5 1/2 NS w/20 mEq KCL 1,000 ML IV SCH (17:01)
[2018-01-16] MEDS ORDERED: PROPOFOL 200 MG/20 ML VIAL ONE (17:29)
[2018-01-16] MEDS ORDERED: Lidocaine 1% PF 5 ML VIAL ONE (17:29)
[2018-01-16] MEDS ORDERED: Dexamethasone 20 MG/5 ML VIAL ONE (17:29)
[2018-01-16] MEDS ORDERED: Ondansetron HCl/PF 4 MG/2 ML Vial ONE (17:29)
[2018-01-16] MEDS ORDERED: Ketorolac Tromethamine 30 MG/ML VIAL ONE (17:29)
[2018-01-16] MEDS: Clindamycin/D5W 900 MG in Premix Bag 1 BAG IVPB SCH ×2 (18:10→23:27)
[2018-01-16] MEDS ORDERED: Atorvastatin Calcium 40 MG TAB PO SCH (21:00)
[2018-01-16] MEDS ORDERED: Tamsulosin HCl 0.4 MG CAP PO SCH (21:00)
[2018-01-16] MEDS: Carvedilol 25 MG TAB PO SCH (21:09)
[2018-01-16] MEDS: Lisinopril 5 MG TAB PO SCH (21:10)
[2018-01-17] MEDS: D5 1/2 NS w/20 mEq KCL 1,000 ML IV SCH (00:19)
[2018-01-17] MEDS: Clindamycin/D5W 900 MG in Premix Bag 1 BAG IVPB SCH (05:16)
[2018-01-17 05:58] LABS: #Monocytes 0.8 thou/uL (0.11-0.59); #Neutrophils 14.7 thou/uL (1.40-6.50); %Basophils 0.1 % (0.0-1.0); %Eosinophils 0.1 % (0.0-10.0); %Lymphocytes 5.8 % (21.0-51.0); %Monocytes 4.9 % (0.0-10.0); Mean Corpuscular HGB CONC 33.7 g/dL (32.0-36.0); Mean Corpuscular Hemoglobin 31.9 pg (27.0-31.0); Mean Corpuscular Volume 94.6 fL (78.0-98.0); Mean Platelet Volume 8.6 fL (7.4-10.4); Platelet Count 202 thou/uL (130-400); RBC Distribution Width 12.7 % (11.5-14.5); Red Blood Cell (RBC) Count 4.07 mill/uL (4.70-6.10); White Blood Cell (WBC) Count 16.5 thou/uL (4.8-10.8)
[2018-01-17] MEDS ORDERED: Furosemide 40 MG TAB PO SCH (06:00)
[2018-01-17 06:25] LABS: Anion Gap 13 mmol/L (10-20); BUN (Urea Nitrogen) 24 mg/dL (8.4-25.7); Calc. Creatinine Clearance 54 mL/min (70-130); Calcium 8.9 mg/dL (7.8-10.44); Carbon Dioxide 17 mmol/L (23-31); Chloride 110 mmol/L (98-107); Estimated GFR-MDRD 51; Glucose 191 mg/dL (83-110); Potassium 4.3 mmol/L (3.5-5.1); Sodium 136 mmol/L (136-145)
[2018-01-17] MEDS ORDERED: Potassium Chloride 10 MEQ TAB PO SCH (08:00)
[2018-01-17] MEDS: Lisinopril 5 MG TAB PO SCH (08:19)
[2018-01-17] MEDS: Carvedilol 25 MG TAB PO SCH (08:19)
[2018-01-17] MEDS ORDERED: Spironolactone 25 MG TAB PO SCH (09:00)
[2018-01-17 11:28] VITALS: TEMP 97.8
[2018-01-17 12:42] VITALS: BP 141/63
--- NOTE | 2018-01-17 13:26 | DIS ---
DATE OF ADMISSION: 01/16/2018 DATE OF DISCHARGE: 01/17/2018 DIAGNOSES: Peripheral vascular disease. PROCEDURES: Right external iliac and common femoral artery endarterectomy with patch angioplasty. DESCRIPTION OF HOSPITAL STAY: Mr. Fontaine presented for elective femoral artery endarterectomy. He has done well postoperatively and being discharged home in good condition. Follow up with me in 2 we eks. DISCHARGE MEDICATIONS: 1. Aspirin 81 mg every day. 2. Plavix 75 mg daily. 3. Flomax 0.4 mg at bedtime. 4. Omeprazole 40 mg every day. 5. Lipitor 40 mg every day. 6. Coreg 25 mg b.i.d. 7. Lasix 40 mg b.i.d. 8. Zestril 5 mg b.i.d. 9. Potassium 10 mEq daily. 10. Aldactone 25 mg every day. FOLLOWUP: Follow up is with me in 2 weeks.
== END 2018-01-17 11:46 | disposition home or self-care (01) | DRG 271 ==
LOC: SURG A 01-16 07:48 → 2NO 01-16 15:41
PROVIDERS: ADMIT Thoracic Surgery (Cardiothoracic Vascular Surgery); ATTEND Thoracic Surgery (Cardiothoracic Vascular Surgery)
PROC: 04CH0ZZ Extirpation of Matter from Right External Iliac Artery, Open Approach (ICD-10-PCS; principal; 2018-01-16)
PROC: 04CK0ZZ Extirpation of Matter from Right Femoral Artery, Open Approach (ICD-10-PCS; 2018-01-16)
PROC: 04CY0ZZ Extirpation of Matter from Lower Artery, Open Approach (ICD-10-PCS; 2018-01-16)
PROC: 04UK0JZ Supplement Right Femoral Artery with Synthetic Substitute, Open Approach (ICD-10-PCS; 2018-01-16)
DX: I70.208 Unspecified atherosclerosis of native arteries of extremities, other extremity (principal); I25.110 Atherosclerotic heart disease of native coronary artery with unstable angina pectoris; Z79.82 Long term (current) use of aspirin; I25.2 Old myocardial infarction; I10 Essential (primary) hypertension; E78.5 Hyperlipidemia, unspecified; K21.9 Gastro-esophageal reflux disease without esophagitis; Z95.1 Presence of aortocoronary bypass graft; Z87.891 Personal history of nicotine dependence; Z88.0 Allergy status to penicillin
CPT/HCPCS: 36415; 80048; 85025; G8978-GP-CJ; G8979-GP-CJ; G8980-GP-CJ; J0670; J1100; J1642; J1644; J1885; J1956; J2001; J2250; J2405; J2704; J2720; J3010; J3490

== ENCOUNTER 2018-06-16 14:06 | Inpatient (IN) | payer MEDICARE, OTHER ==
[2018-06-16 17:06] LABS: CKMB 3.6 ng/mL (0-6.6)
[2018-06-16 20:54] LABS: Troponin I 0.148 ng/mL (< 0.028)
[2018-06-16 23:13] LABS: Troponin I 0.131 ng/mL (< 0.028)
[2018-06-17 03:25] LABS: #Eosinphils 0.1 thou/uL (0.0-0.7); #Monocytes 0.8 thou/uL (0.11-0.59); #Neutrophils 16.2 thou/uL (1.40-6.50); %Basophils 0.3 % (0.0-1.0); %Eosinophils 0.3 % (0.0-10.0); %Lymphocytes 5.4 % (21.0-51.0); %Monocytes 4.4 % (0.0-10.0); %Neutrophils 89.6 % (42.0-75.0); Hemoglobin 15.7 g/dL (14.0-18.0); Mean Corpuscular Hemoglobin 30.7 pg (27.0-31.0); Mean Corpuscular Volume 96.2 fL (78.0-98.0); Mean Platelet Volume 8.2 fL (7.4-10.4); Platelet Count 243 thou/uL (130-400); RBC Distribution Width 12.5 % (11.5-14.5); Red Blood Cell (RBC) Count 5.11 mill/uL (4.70-6.10); White Blood Cell (WBC) Count 18.1 thou/uL (4.8-10.8)
[2018-06-17 03:31] LABS: PTT 25.8 SEC (22.9-36.1); Prothrombin Time 13.7 SEC (12.0-14.7)
[2018-06-17 03:44] LABS: ALT (SGPT) 17 U/L (8-55); AST (SGOT) 14 U/L (5-34); Alkaline Phosphatase 83 U/L (40-150); Anion Gap 15 mmol/L (10-20); BUN (Urea Nitrogen) 35 mg/dL (8.4-25.7); Bilirubin, Total 0.4 mg/dL (0.2-1.2); Calc. Creatinine Clearance 50 mL/min (70-130); Calcium 9.6 mg/dL (7.8-10.44); Carbon Dioxide 18 mmol/L (23-31); Chloride 106 mmol/L (98-107); Estimated GFR-MDRD 42; Globulin 3.3 g/dL (2.4-3.5); Glucose 206 mg/dL (83-110); Potassium 4.2 mmol/L (3.5-5.1); Protein, Total 7.3 g/dL (5.8-8.1); Sodium 135 mmol/L (136-145)
[2018-06-17] MEDS ORDERED: Dextrose 5 % And 0.9 % NaCl 1,000 ML IV SCH (03:45)
[2018-06-17 04:06] LABS: CKMB 3.2 ng/mL (0-6.6)
[2018-06-17] MEDS ORDERED: Ondansetron PF 4 MG/2 ML Vial IVP PRN (04:15)
[2018-06-17] MEDS ORDERED: Ondansetron ODT 4 MG TAB PO PRN (04:15)
[2018-06-17] MEDS ORDERED: Calcium Carbonate 500 MG ChewTAB PO PRN (04:15)
[2018-06-17] MEDS ORDERED: Acetaminophen 650 MG Suppository PR PRN (04:15)
[2018-06-17] MEDS ORDERED: Acetaminophen 325 MG TAB PO PRN (04:15)
[2018-06-17] MEDS ORDERED: hydrALAZINE 20 MG/ML VIAL SLOW IVP PRN (04:15)
[2018-06-17] MEDS ORDERED: Eucerin (Mineral Oil/Petrolatum,White) 30 gm Jar TOP PRN (04:21)
[2018-06-17] MEDS: Dextrose 5 % And 0.9 % NaCl 1,000 ML IV SCH ×2 (04:55→10:57)
--- NOTE | 2018-06-17 05:04 | HP ---
CHIEF COMPLAINT: Shortness of breath. The patient is a transfer from [facility] Emergency Room. PRIMARY CARE PHYSICIAN: Dr. Urbano Medina. HISTORY OF PRESENT ILLNESS: The patient is a 77-year-old male with coronary artery disease, peripheral vascular disease, and CKD, presented to [place] [facility] with shortness of breath that started around 4:00 a.m. on 16 June 2018. He was seen in the emergency room around 9:00 a.m. He woke up with shortness of breath along with coughing. He recently had upper respiratory tract infection. The cough was productive of small amount of yellow phlegm. He denies orthopnea or paroxysmal nocturnal dyspnea. He felt generally weak and had intermittent sweating. He denies any chest discomfort, palpitations, lightheadedness, dizziness, or syncope. He received aspirin, nitroglycerin, Lasix 40 mg IV push, and Solu-Medrol 125 mg IV. While waiting at [facility] [facility] room around 12:00 p.m. patient had stroke-like symptoms with NIH of 3. CT scan of the brain was negative. CT angiogram of the head and neck showed occlusion of the cervical portion of the left vertebral artery. There was also moderate stenosis of bilateral proximal internal carotid artery. The right common carotid artery has heavy calcified plaque causing stenosis of indeterminate degree. He was subsequently transferred to this facility for hospital admission. After arrival to the Stroke Unit, the patient developed sudden neurologic deficit with NIH of approximately 13. Stroke alert was called. PAST MEDICAL HISTORY: 1. Coronary artery disease, status post myocardial infarction and CABG in 06/2017. 2. Chronic systolic heart failure. 3. History of atrial fibrillation in the past. 4. Benign prostatic hypertrophy. 5. Chronic kidney disease, stage 3. 6. Hypertension. 7. Suspected sleep apnea. 8. GERD. PAST SURGICAL HISTORY: 1. Coronary artery bypass in June of 2017. 2. Anterior cervical discectomy in 2016. 3. External iliac/common femoral endarterectomy with patch angioplasty in January [address] Westbrook. ALLERGIES: THE PATIENT IS ALLERGIC TO AMOXICILLIN. CURRENT HOME MEDICATIONS: 1. MiraLAX as needed. 2. Aspirin 81 mg daily. 3. Lipitor 40 mg nightly. 4. Carvedilol 25 mg b.i.d. 5. Lisinopril 5 mg b.i.d. 6. Aldactone 25 mg daily. SOCIAL HISTORY: The patient currently lives at home with his . The is the decision maker. No current use of smoking, alcohol, or drug use. He quit smoking approximately 13 years ago. FAMILY HISTORY: Positive for heart disease and COPD. PHYSICAL EXAMINATION: VITAL SIGNS: At this time show temperature 97.8, pulse rate of 83, blood pressure 142/83, O2 saturation 96% on room air, respiration of 18. GENERAL: A 77-year-old male with altered mentation. He is lethargic. HEENT: Head, atraumatic and normocephalic. Sclerae anicteric. Moist mucous membranes. No oral lesion. NECK: Supple. No JVD appreciated. No significant carotid bruits. LUNGS: Showed diminished air entry at bilateral bases. No wheezing, rales, or rhonchi. HEART: S1 and S2 present. Regular rate and rhythm. No rubs or gallops appreciated. ABDOMEN: Soft. Bowel sounds present. No rebound or guarding. No costovertebral angle tenderness. NEUROLOGY: There is no facial droop noted. Detailed neurological examination could not be done due to current cognitive status. His NIH score is 13 at this time. PSYCHIATRY: As discussed above. He is lethargic. SKIN: Warm and dry. LYMPH NODES: No palpable lymph nodes in the neck. PERIPHERAL VASCULAR: Radial pulses palpable bilaterally. MUSCULOSKELETAL: No joint swelling or tenderness. LABORATORY FINDINGS: Chest x-ray at [place] was negative for infiltrate. It showed mild cardiomegaly. Sodium of 139, potassium 4.7, chloride 107, bicarb 23, BUN of 26, and creatinine 1.7. WBC 9.0 with platelet count of 258, hemoglobin 17, hematocrit 49.1. Urinalysis was negative for wbc bacteria. PT/INR was normal. Troponin was 0.293. Medication administered at [place], 1. Sublingual nitroglycerin. 2. Aspirin 325 mg. 3. DuoNeb. 4. Lasix 40 mg. 5. Aldactone 25 mg. 6. Lisinopril 5 mg. 7. Solu-Medrol 125 mg. DIAGNOSTIC STUDIES: CT scan of the brain and CT angiogram of the head as discussed above. EKG by my review showed sinus rhythm without significant ST-T wave changes. IMPRESSION: 1. Shortness of breath, consistent with acute bronchitis. 2. Transient ischemic attack, suspected cerebrovascular accident. 3. Coronary artery disease, status post myocardial infarction. 4. History of atrial fibrillation in the past. 5. Chronic systolic heart failure. 6. Chronic kidney disease, stage 3. 7. Peripheral vascular disease. 8. Elevated troponins probably secondary to demand ischemia. 9. Obesity with a BMI of 30. PLAN: 1. The patient will be monitored in the stroke unit. We will continue aspirin. We will get stroke team involved. Repeat CT scan of the brain after stroke alert was negative for acute changes. Consult Neurology and Cardiology. Continue aspirin. DVT prophylaxis with Lovenox. No SCDs due to peripheral vascular disease. Continue statins. Hold antihypertensives for now for permissive hypertension. 2. Plan was discussed with the spouse in detail. She stated understanding. Job ID: [id number]
--- NOTE | 2018-06-17 08:29 | CT ---
PRELIMINARY REPORT/[facility]/EMERGENCY AFTER HOURS PROCEDURE: Addendum created by Elton Farmer MD on 06/17/2018 3:44 AM Central Time ([place] & [place]) Report of this nacho e was called to Jaswant Menjivar at 3:43 AM CDT, 06/17/2018. The findings were acknowledged and unders tood. Initial Report created on 06/17/2018 3:41 AM Central Time ([place] & [place]) EXAM: CT Head Without Contrast EXAM DATE/TIME: 06/17/2018 3:21 AM CLINICAL HISTORY: 77 years old, male; Signs and symptoms; Altered mental status/memory loss; Confusion or disorientatio n; Patient HX: *stroke activation AMS; Sudden change in mental status. PT became altered/confused. Slurred speech TECHNIQUE: Axial computed tomography images of the head/brain without contrast. STROKE PROTOCOL was implemented. COMPARISON: No relevant prior studies available. FINDINGS: Brain: No acute intracranial hemorrhage or mass effect. Suspect a small 5 mm old infarct in the left supraventricular white matter. No definite acute infarct by CT. MRI could be more sensitive/specific for detection, and also for dis tinguishing between old and subacute infarcts, as clinically directed. Ventricles: Ventricle size is normal for age. Bones/joints: No definite acute skull fracture. Sinuses: Mild mucosal thickening/opacity is mild mucosal thickening in maxillary sinuses. 18 x 10 mm retention cyst or polyp in the left maxillary sinus. Included paranasal sinuses otherwise appear esse ntially clear. Mastoid air cells: No significant acute finding. Vasculature: Vascular calcifications noted in the internal carotid and vertebral basilar systems. IMPRESSION: 1. No acute intracranial bleed or mass effect. 2. Suspect a small 5 mm old infarct in the left supraventricular white matter. 3. No definite acute infarct by CT, see above discussion. 4. Other findings discussed above. ASSESSMENT: ASPECTS ([place] Stroke Program Early CT Score) is 10/10. Thank you for allowing us to participate in the care of your patient. Dictated and Authenticated by: Elton Farmer MD 06/17/2018 3:41 AM Central Time ([place] & [place]) FINAL REPORT EMERGENCY AFTER HOURS CT BRAIN WITHOUT CONTRAST: Date: 06/17/18 COMPARISON: 06/28/17. FINDINGS/IMPRESSION: I agree with the findings and impression given in the preliminary report per [facility] physician. Small ve ssel ischemic disease without acute intracranial abnormality. POS: [facility]
[2018-06-17] MEDS ORDERED: Polyethylene Glycol 3350 17 GM Packet PO PRN (09:00)
[2018-06-17] MEDS: Enoxaparin Sodium 40 MG/0.4 ML SYRINGE SC SCH (10:34)
[2018-06-17] MEDS: Senokot S 8.6-50 MG TAB PO SCH ×2 (10:34→22:03)
[2018-06-17] MEDS: Aspirin 325 mg Enteric Coated Tablet PO SCH (10:34)
[2018-06-17] MEDS: Aspirin 300 MG Suppository PR SCH (10:35)
[2018-06-17] MEDS ORDERED: Sterile Water 10 ML VIAL FS PRN (12:28)
[2018-06-17] MEDS ORDERED: Ziprasidone 20 MG VIAL IM SCH (12:30)
--- NOTE | 2018-06-17 15:18 | MRI ---
MRI BRAIN WITHOUT CONTRAST: Date: 06/17/18 HISTORY: Stroke. FINDINGS: Correlation is made with the previous day's CT scan. FINDINGS: There are small foci of restricted diffusion, including left cerebellar hemisphere, left thalamus, ri ght occipital lobe, right centrum semiovale, and right mondragon radiata. No evidence of hemorrhage, midline shift, or abnormal extra-axial fluid collections are seen. Ventric ular size is appropriate and the basilar cisterns are patent. There is mucosal disease in the paranas al sinuses and fluid in the left mastoid air cells. IMPRESSION: Multiple acute lacunar infarctions as described above. POS: [facility]
--- NOTE | 2018-06-17 15:18 | CON ---
DATE OF CONSULTATION: 06/17/2018 INDICATION FOR CONSULTATION: This is an elderly gentleman, who has undergone bypass surgery in the past and up until recently doing very well. He actually went bird hunting just a couple of weeks ago, but woke up yesterday morning, was somewhat confused and was yelling in the bathroom, told his , he did go to the emergency room. While in the emergency room, it appears that he was having a CVA symptoms and CT scan was unremarkable except that he had some left vertebral artery occlusion with bilateral carotid artery stenosis and had left supraventricular old cerebral infarct and he was transferred to [place]. This morning, he had another episode when he was coming out of the bathroom, he became very unsteady and now is very confused. He is just set down for another MRI I believe. Results are still pending, but he is significantly very confused and appears to be suffering a CVA. He denied any chest pain. His is at the bedside. He has had no recent chest pain or shortness of breath. Around early this morning, he did awaken with shortness of breath and cough and then became more confused. PAST MEDICAL HISTORY: Significant for coronary artery disease and bypass surgery in June 2017. He has peripheral vascular disease, chronic kidney disease. He has history of chronic congestive heart failure. He has benign prostatic hypertrophy, gastroesophageal reflux disease, and possible sleep apnea. He had neck surgery in 2016 for spine. He also has had some external iliac and common femoral artery endarterectomy in January 2018. SOCIAL HISTORY: He is . He stopped smoking about 13 years ago. No significant alcohol use. FAMILY HISTORY: Parents had heart disease and COPD. ALLERGIES: HE IS ALLERGIC TO AMOXICILLIN. PRESENT MEDICATIONS: Include: 1. Aspirin. 2. Atorvastatin. 3. Lovenox. 4. Geodon. 5. Zofran. REVIEW OF SYSTEMS: Very difficult to obtain, but the said recently he has had no complaints on the review of systems until today as what is noted in the history of present illness. PHYSICAL EXAMINATION: GENERAL: Reveals an elderly gentleman. VITAL SIGNS: Blood pressure 139/73, heart rate is 77 and regular, respiratory rate is 18. He is afebrile. HEENT: Shows head to be normocephalic and atraumatic. I could not clearly auscultate the carotid arteries due to the patient's upper airway noise from just moaning, groaning, moving and not being cooperative. His chest was clear to auscultation. CARDIOVASCULAR: Reveals a regular rate and rhythm. Normal S1 and S2. He has a well-healed midline surgical incision after median sternotomy. ABDOMEN: Soft and nontender. EXTREMITIES: Show no clubbing, cyanosis, or edema. I cannot palpate pedal pulses. Femoral pulses were present. NEUROLOGIC: The patient obviously is disoriented. He is confused and is uncooperative during most of the examination. It appears that he has suffered a CVA. DIAGNOSTIC DATA: EKG shows a sinus rhythm with no acute changes. He does have occasional PVCs. LABORATORY DATA: Shows a troponin I of 0.2 decreased down to 0.13. WBC was 18.1, hemoglobin 15.7. His BUN was 35 with a creatinine of 1.62, blood sugar was 206. Chest x-ray shows mild cardiomegaly. At this time, it appears that his abnormal cardiac enzymes are due to the CVA and demand ischemia. Otherwise, cardiac status appears to be relatively stable at this time. I do not see any indication that we need to proceed with any further cardiac workup at this time. We will schedule him for an echocardiogram. This has already been ordered to determine whether or not he may have had some intracardiac thrombi or masses that may have caused the CVA. IMPRESSION: 1. Transient ischemic attack versus cerebrovascular accident, but appears to be a cerebrovascular accident at this time. 2. Hypertension. This is under good control at this time. 3. History of coronary artery disease. This appears also to be stable. There were no acute EKG changes and enzymes slightly are indeterminate due to the neurological event. 4. Chronic kidney disease. His creatinine is 1.62, this will be dealt with by the primary care service. 5. Peripheral vascular disease. This appears to be stable at this time. We will be more than happy to continue to follow the patient with you, but we would agree with the present management at this time. Job ID: [id number]
[2018-06-17] MEDS: Haloperidol Lactate 5 MG/ML VIAL SLOW IVP PRN (16:19)
[2018-06-17] MEDS: Atorvastatin Calcium 40 MG TAB PO SCH (22:03)
--- NOTE | 2018-06-17 23:30 | CON ---
DATE OF CONSULTATION: 06/17/2018 CHIEF COMPLAINT: Possible acute stroke. HISTORY OF PRESENT ILLNESS: The patient's gave his medical history. The patient is usually very active and at home. He woke up his at 8:00 a.m. yesterday. They live in [place], [place]. He was having cough and shortness of breath, and he was taken to the emergency room right away and they determined he was having a TIA. At some point, he was noted to have NIH Stroke Scale of 13, which improved apparently and they told him he was having a TIA. He has been moved to the floor and he has had blood pressure fluctuations since arrival. Today, a code stroke was called at early hours of the morning around 05:23 a.m., and he was found to have dysarthria and right-sided weakness, and NIH Stroke Scale of 13 was noted by the staff. The patient at the time of my evaluation was very sleepy. He was still somewhat dysarthric and had right-sided weakness and reports shortness of breath is improved. He is unable to give much history. PAST MEDICAL HISTORY: Positive for hypertension, coronary artery disease, status post NM and coronary artery bypass graft in June 2017. He has chronic systolic heart failure, atrial fibrillation in the past, benign prostatic hypertrophy, chronic kidney disease stage 3, sleep apnea, and gastroesophageal reflux disease. PAST SURGICAL HISTORY: Coronary artery bypass graft in June 2017, anterior cervical diskectomy in 2016, external iliac or common femoral endarterectomy with patch angioplasty in January [address] 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 ALLERGIES: HE IS ALLERGIC TO AMOXICILLIN. MEDICATIONS AT HOME: He takes; 1. MiraLAX. 2. Aspirin. 3. Lipitor 40 mg. 4. Carvedilol 25 mg b.i.d. 5. Lisinopril 5 mg b.i.d. 6. Aldactone 25 mg per day. SOCIAL HISTORY: He does not smoke or drink alcohol. He lives with his . He quit smoking 13 years ago. FAMILY HISTORY: Positive for heart disease and COPD in his father. REVIEW OF SYSTEMS: Difficult to obtain due to his mental status. LABORATORY DATA: Laboratory workup so far; white count 18.1, hemoglobin 15.7, hematocrit 49.1, and platelets 243. Coagulation; PT 13.7, INR 1, and PTT 25.8. Chemistry; sodium 135, potassium 4.2, chloride 106, bicarb 18, BUN 35, creatinine 1.62, glucose 206, and albumin 4. Globulin 3.3. AST 14, ALT 17, and alkaline phosphatase 83. Troponins trend is high at 0.202, 0.148, 0.131, and 0.131. DIAGNOSTIC DATA: Request for MRI was completed. His brain MRI post event shows multiple acute lacunar infarcts with small foci of restricted diffusion in the left cerebellar hemisphere, left thalamus, right occipital lobe, right centrum semiovale, and right mondragon radiata. PHYSICAL EXAMINATION: VITAL SIGNS: Temperature was 97.8, blood pressure 175/74, and pulse 73. GENERAL APPEARANCE: A well-built, well-nourished man, who is comfortable in bed, seems to be sleepy, but wakes up when aroused. He has slurred speech and does not follow commands. CHEST: Clear vesicular breathing. CARDIOVASCULAR: S1 and S2 heard. No murmurs. ABDOMEN: Soft and nontender. NEUROLOGIC: Higher intellectual functions. He wakes up when awakened, but has slurred speech. He does not follow much commands. Cranial nerves, pupils are reactive bilaterally and he has a smaller right pupil at 1 mm. He had prior history of eye surgery 9 years ago and he has some esotropia in the right eye and he has right facial droop. Palate elevates normally. Tongue is midline. Motor, bulk normal strength, it is difficult to assess for each individual muscle groups, but overall muscle strength seems to be 4/5 in the right lower extremity and left lower is 5/5. In the upper extremities, 4/5 on the right and 5/5 on the left. Unable to assess sensory and cerebellar. IMPRESSION: The patient is a 77-year-old man with a history of transient neurological symptoms, was thought to have a transient ischemic attack and then had [place] this morning with reoccurrence of stroke symptoms on the right side with NIH Stroke Scale of 13. At this time, he seems to have slurred speech, right facial droop, right-sided weakness and sleepiness in general, and has bilateral lacunar infarcts in various locations as noted. This could be due to fluctuations of his blood pressure. Risk factors for stroke in this individual are coronary artery disease and hypertension. TREATMENT RECOMMENDATIONS: Please obtain CT angiography to study his cerebral vasculature further, echocardiogram as well, and consider Cardiology consult and switch over to aspirin with Plavix or anticoagulant if atrial fibrillation is a concern. I will see him again tomorrow. Job ID: [id number]
[2018-06-18 05:43] LABS: #Eosinphils 0.1 thou/uL (0.0-0.7); #Lymphocytes 2.7 thou/uL (1.20-3.40); #Monocytes 1.4 thou/uL (0.11-0.59); #Neutrophils 12.2 thou/uL (1.40-6.50); %Basophils 0.3 % (0.0-1.0); %Eosinophils 0.6 % (0.0-10.0); %Lymphocytes 16.5 % (21.0-51.0); %Monocytes 8.3 % (0.0-10.0); %Neutrophils 74.3 % (42.0-75.0); Hemoglobin 14.7 g/dL (14.0-18.0); Mean Corpuscular HGB CONC 32.5 g/dL (32.0-36.0); Mean Corpuscular Hemoglobin 30.5 pg (27.0-31.0); Mean Corpuscular Volume 93.7 fL (78.0-98.0); Mean Platelet Volume 7.9 fL (7.4-10.4); Platelet Count 247 thou/uL (130-400); RBC Distribution Width 12.5 % (11.5-14.5); Red Blood Cell (RBC) Count 4.82 mill/uL (4.70-6.10); White Blood Cell (WBC) Count 16.4 thou/uL (4.8-10.8)
[2018-06-18 06:10] LABS: ALT (SGPT) 17 U/L (8-55); AST (SGOT) 17 U/L (5-34); Albumin 3.7 g/dL (3.4-4.8); Alkaline Phosphatase 68 U/L (40-150); Anion Gap 12 mmol/L (10-20); BUN (Urea Nitrogen) 29 mg/dL (8.4-25.7); Bilirubin, Total 0.6 mg/dL (0.2-1.2); Calc. Creatinine Clearance 59 mL/min (70-130); Calcium 9.4 mg/dL (7.8-10.44); Carbon Dioxide 24 mmol/L (23-31); Chloride 108 mmol/L (98-107); Estimated GFR-MDRD 51; Globulin 2.9 g/dL (2.4-3.5); Glucose 91 mg/dL (83-110); Magnesium 2.1 mg/dL (1.6-2.6); Protein, Total 6.6 g/dL (5.8-8.1); Sodium 140 mmol/L (136-145)
[2018-06-18] MEDS: Senokot S 8.6-50 MG TAB PO SCH ×2 (09:25→21:16)
[2018-06-18] MEDS: Enoxaparin Sodium 40 MG/0.4 ML SYRINGE SC SCH (09:25)
[2018-06-18] MEDS: Aspirin 325 mg Enteric Coated Tablet PO SCH (09:26)
[2018-06-18] MEDS: Aspirin 300 MG Suppository PR SCH (09:26)
[2018-06-18] MEDS ORDERED: Iopamidol 370 76% 100 ML VIAL ONE (11:25)
[2018-06-18] MEDS: Haloperidol Lactate 5 MG/ML VIAL SLOW IVP PRN (13:38)
--- NOTE | 2018-06-18 14:02 | PRG ---
DATE OF SERVICE: 06/18/2018 CHIEF COMPLAINT: Acute stroke. HISTORY OF PRESENT ILLNESS: The patient is still waiting for his workup. He was alone in his room. He looks better than yesterday. He does try to follow commands and talks to staff, even though he has severe dysarthria. On current workup, his MRI of the brain was completed and it shows multiple acute lacunar infarcts. CT angiography is pending. Echocardiogram is pending. LABORATORY WORKUP: White count 16.4, hemoglobin 14.7, hematocrit 45.1, platelets 247. Sodium 140, potassium 4, chloride 108, BUN 29, creatinine 1.37. Triglycerides 292, cholesterol 141, LDL 55, HDL 28, and heart disease risk ratio is 5. PHYSICAL EXAMINATION: VITAL SIGNS: Temperature 98.4, blood pressure 167/73, pulse is 69, and O2 saturations 94%. GENERAL APPEARANCE: The patient is alert, awake, walks and is talking, but he has severe dysarthria. It is difficult to understand his speech. CRANIAL NERVE EXAMINATION: He has left eye ptosis. Pupils are 3 to 4 mm in the left eye, right eye 2 mm. He has right facial droop. Motor examination; he has right pronator drift, and strength is 4/5 on the right side and 5/5 on the left. Sensory normal bilaterally. IMPRESSION: The patient is a 77-year-old. He has multiple findings including left eye ptosis, right facial droop along with right-sided weakness, and dysarthria with gait difficulty. He has multiple lacunar infarcts. We are waiting on his echocardiogram and CT angiogram. RECOMMENDATIONS: Continue aspirin for stroke prophylaxis. Please consult Cardiology for regulation of his hypertension and cardiac eval. Further evaluation of cardiac risk factors including TTE if needed. Due to multiple infarcts in the brain, I will follow up the patient again tomorrow. Job ID: [id number]
--- NOTE | 2018-06-18 14:29 | CT ---
CT BRAIN WITHOUT CONTRAST CT ANGIOGRAM HEAD WITH CONTRAST CT ANGIOGRAM NECK WITH CONTRAST: Date: 06/18/18 HISTORY: CVA. COMPARISON: MRI brain from prior day. FINDINGS: Hypodensity of the posterior left cerebellum corresponding to the prior infarction seen on the MRI ye sterday. There is a left thalamic hypodensity. Subtle right mondragon radiata hypodensity is present. No acute hemorrhage. No midline shift or mass effect. The calvarium is intact. There is a punctate radiopacity along the right inferior eyelid measuring 3. 0 x 1.0 mm. There is ACDF hardware at C4-C6. Lung apices are clear. Again, the cervical portion of the left verte bral artery is occluded. Right vertebral artery is patent. The basilar artery is patent. Extensive atherosclerotic plaque of both carotid bulbs and proximal internal carotid arteries. Per NA SCET criteria, no hemodynamically significant stenosis of the internal carotid arteries. No [place] thrombosis, stenosis, nor aneurysm formation. Flow within the intradural vertebral artery on the left is slow. IMPRESSION: 1. Unchanged CT angiogram of the head and neck from 2 days prior. [place] is patent. 2. Occluded cervical left vertebral artery. 3. No hemodynamically significant stenosis of the internal carotid arteries using NASCET criteria. POS: [facility]
--- NOTE | 2018-06-18 17:22 | PDOC.PN ---
- Subjective Encounter Start Date: 06/18/18 Encounter Start Time: 17:21 Subjective: Presented with acute onset of SOB. Developed gait instability in the ER. -: MRI showed features of acute CVA. -: Agitation and mental status have improved. Denied Chest pain or SOB - Objective Resuscitation Status - Order Detail: 06/17/18 04:15 Resuscitation Status Routine Resuscitation Status: FULL: Full Resuscitation Vital Signs & Weight: Vital Signs (12 hours) Temp Pulse Pulse Pulse Resp BP BP 06/18/18 15:47 98.3 F 73 18 06/18/18 14:00 72 16 06/18/18 11:38 97.8 F 65 18 06/18/18 09:30 93 89 136/78 184/91 H 06/18/18 09:19 06/18/18 07:46 98.4 F 69 18 06/18/18 06:22 69 16 BP Pulse Ox 06/18/18 15:47 166/69 H 94 L 06/18/18 14:00 94 L 06/18/18 11:38 179/86 H 97 06/18/18 09:30 06/18/18 09:19 94 L 06/18/18 07:46 167/73 H 94 L 06/18/18 06:22 95 Weight Admit Weight 197 lb 8 oz Weight 197 lb 8 oz I&O: 06/17/18 06/18/18 06/19/18 06:59 06:59 06:59 Intake Total 694 Balance 694 Result Diagrams: 06/18/18 05:34 06/18/18 05:34 Phys Exam - Physical Examination HEENT: PERRLA right lower facial droop Neck: supple, full ROM Respiratory: no wheezing, no rales, no rhonchi Cardiovascular: RRR 3/6 systolic murmur noted Gastrointestinal: soft, non-tender, no distention, positive bowel sounds Musculoskeletal: no edema, pulses present Left facial nerves weakness upper neurone type. Power 5/5 Llimbs and 5-/5 R limbs. Dx/Plan (1) Acute CVA (cerebrovascular accident) Code(s): I63.9 - CEREBRAL INFARCTION, UNSPECIFIED Status: Acute Comment: Most likely embolization from carotid plaques. (2) Acute encephalopathy Code(s): G93.40 - ENCEPHALOPATHY, UNSPECIFIED Status: Acute Comment: Due to acute CVA. Improved. (3) Atherosclerosis of both carotid arteries Code(s): I65.23 - OCCLUSION AND STENOSIS OF BILATERAL CAROTID ARTERIES Status : Acute (4) Leucocytosis Code(s): D72.829 - ELEVATED WHITE BLOOD CELL COUNT, UNSPECIFIED Status: Acute Comment: Most likely related to steroid therapy (5) Hyperglycemia Code(s): R73.9 - HYPERGLYCEMIA, UNSPECIFIED Status: Acute Comment: Due to steroid. resolved. (6) NSTEMI (non-ST elevated myocardial infarction) Code(s): I21.4 - NON-ST ELEVATION (NSTEMI) MYOCARDIAL INFARCTION Status: Acute (7) Metabolic acidosis Code(s): E87.2 - ACIDOSIS Status: Acute (8) Acute systolic heart failure Code(s): I50.21 - ACUTE SYSTOLIC (CONGESTIVE) HEART FAILURE Status: Acute Comment: etiology unclear. ? due to NSTEMI (9) Acute worsening of stage 3 chronic kidney disease Code(s): N18.3 - CHRONIC KIDNEY DISEASE, STAGE 3 (MODERATE) Status: Acute Comment: Creat is trending down from 1.62 to 1.37 (10) CAD (coronary artery disease) Code(s): I25.10 - ATHSCL HEART DISEASE OF [place] CORONARY ARTERY W/O ANG PCTRS Status: Acute (11) BPH (benign prostatic hyperplasia) Code(s): N40.0 - BENIGN PROSTATIC HYPERPLASIA WITHOUT LOWER URINRY TRACT SYMP Status: Chronic (12) HTN (hypertension) Code(s): I10 - ESSENTIAL (PRIMARY) HYPERTENSION Status: Chronic - Plan Restart coreg and lisinopril to get better BP control -: Appreciate cardiology and Neurology input. -: Restart spironolactone. -: PT/OT to continue. -: Monitor renal function and CBC * .
[2018-06-18] MEDS: Lisinopril 5 MG TAB PO SCH (21:15)
[2018-06-18] MEDS: Carvedilol 25 MG TAB PO SCH (21:16)
[2018-06-18] MEDS: Atorvastatin Calcium 40 MG TAB PO SCH (21:16)
[2018-06-19 05:24] LABS: #Basophils 0.1 thou/uL (0.0-0.2); #Eosinphils 0.3 thou/uL (0.0-0.7); #Lymphocytes 2.8 thou/uL (1.20-3.40); #Monocytes 1.2 thou/uL (0.11-0.59); #Neutrophils 7.7 thou/uL (1.40-6.50); %Basophils 0.5 % (0.0-1.0); %Eosinophils 2.7 % (0.0-10.0); %Neutrophils 63.8 % (42.0-75.0); Hemoglobin 14.8 g/dL (14.0-18.0); Mean Corpuscular HGB CONC 32.8 g/dL (32.0-36.0); Mean Corpuscular Hemoglobin 30.5 pg (27.0-31.0); Mean Corpuscular Volume 93.1 fL (78.0-98.0); Mean Platelet Volume 8.1 fL (7.4-10.4); Platelet Count 244 thou/uL (130-400); RBC Distribution Width 12.5 % (11.5-14.5); Red Blood Cell (RBC) Count 4.86 mill/uL (4.70-6.10)
[2018-06-19 05:41] LABS: Anion Gap 13 mmol/L (10-20); BUN (Urea Nitrogen) 27 mg/dL (8.4-25.7); Calc. Creatinine Clearance 63 mL/min (70-130); Calcium 9.4 mg/dL (7.8-10.44); Carbon Dioxide 22 mmol/L (23-31); Chloride 108 mmol/L (98-107); Estimated GFR-MDRD 54; Glucose 82 mg/dL (83-110); Potassium 4.2 mmol/L (3.5-5.1); Sodium 139 mmol/L (136-145)
[2018-06-19] MEDS: Enoxaparin Sodium 40 MG/0.4 ML SYRINGE SC SCH (09:33)
[2018-06-19] MEDS: Carvedilol 25 MG TAB PO SCH ×2 (09:35→21:15)
[2018-06-19] MEDS: Senokot S 8.6-50 MG TAB PO SCH (09:35)
[2018-06-19] MEDS: Spironolactone 25 MG TAB PO SCH (09:35)
[2018-06-19] MEDS: Aspirin 325 mg Enteric Coated Tablet PO SCH (09:35)
[2018-06-19] MEDS: Aspirin 300 MG Suppository PR SCH (09:36)
[2018-06-19] MEDS: Lisinopril 5 MG TAB PO SCH (09:36)
--- NOTE | 2018-06-19 13:59 | PDOC.PN ---
- Subjective Encounter Start Date: 06/19/18 Encounter Start Time: 13:57 Subjective: No new problem. Gait instability anddysarthria persists. -: Denied headache, chest pain or vomiting. - Objective Resuscitation Status - Order Detail: 06/17/18 04:15 Resuscitation Status Routine Resuscitation Status: FULL: Full Resuscitation Vital Signs & Weight: Vital Signs (12 hours) Temp Pulse Resp BP BP Pulse Ox 06/19/18 11:59 98 F 63 20 161/65 H 97 06/19/18 10:39 65 16 96 06/19/18 09:36 64 157/63 H 06/19/18 09:29 97 06/19/18 08:00 98.7 F 64 20 157/63 H 97 06/19/18 06:33 52 L 16 97 06/19/18 04:00 98.0 F 58 L 19 143/67 H 96 06/19/18 02:25 71 16 95 Weight Admit Weight 197 lb 8 oz Weight 197 lb 8 oz I&O: 06/18/18 06/19/18 06/20/18 06:59 06:59 06:59 Intake Total 694 Balance 694 Result Diagrams: 06/19/18 04:35 06/19/18 04:35 Phys Exam - Physical Examination HEENT: PERRLA Neck: no JVD, supple Respiratory: no wheezing, no rales, no rhonchi Cardiovascular: RRR 3/6 systolicmurmur noted Gastrointestinal: soft, non-tender, no distention, positive bowel sounds Musculoskeletal: no edema, pulses present Neurological: moves all 4 limbs Power seem equalboth all limbs. mild righ lower face weakness persists. Mild left eyelid ptosis noted Dx/Plan (1) Acute CVA (cerebrovascular accident) Code(s): I63.9 - CEREBRAL INFARCTION, UNSPECIFIED Status: Acute Comment: Most likely embolization from carotid plaques. (2) Acute encephalopathy Code(s): G93.40 - ENCEPHALOPATHY, UNSPECIFIED Status: Acute Comment: Due to acute CVA. Improved. (3) Atherosclerosis of both carotid arteries Code(s): I65.23 - OCCLUSION AND STENOSIS OF BILATERAL CAROTID ARTERIES Status : Acute (4) Leucocytosis Code(s): D72.829 - ELEVATED WHITE BLOOD CELL COUNT, UNSPECIFIED Status: Acute Comment: Most likely related to steroid therapy. Trending down (5) Hyperglycemia Code(s): R73.9 - HYPERGLYCEMIA, UNSPECIFIED Status: Acute Comment: Due to steroid. resolved. (6) NSTEMI (non-ST elevated myocardial infarction) Code(s): I21.4 - NON-ST ELEVATION (NSTEMI) MYOCARDIAL INFARCTION Status: Acute Comment: Type 2. demand ischemia (7) Metabolic acidosis Code(s): E87.2 - ACIDOSIS Status: Acute Comment: Improved. (8) Acute systolic heart failure Code(s): I50.21 - ACUTE SYSTOLIC (CONGESTIVE) HEART FAILURE Status: Acute Comment: etiology unclear. ? due to NSTEMI (9) Acute worsening of stage 3 chronic kidney disease Code(s): N18.3 - CHRONIC KIDNEY DISEASE, STAGE 3 (MODERATE) Status: Acute Comment: Creat is trending down from 1.62 to 1.2 (10) CAD (coronary artery disease) Code(s): I25.10 - ATHSCL HEART DISEASE OF [place] CORONARY ARTERY W/O ANG PCTRS Status: Acute (11) BPH (benign prostatic hyperplasia) Code(s): N40.0 - BENIGN PROSTATIC HYPERPLASIA WITHOUT LOWER URINRY TRACT SYMP Status: Chronic (12) HTN (hypertension) Code(s): I10 - ESSENTIAL (PRIMARY) HYPERTENSION Status: Chronic Comment: Controlis still suboptimal - Plan Increase lisinoprilto 20 bid. Continue other antihypertensives. -: PT/OT/PACKING ROOM INSPECTOR eval and treat -: Continue other medications. -: Case mgt on the case. Anticipate discharge to acute inpatient rehab * .
[2018-06-19] MEDS ORDERED: Lisinopril 10 MG TAB PO SCH (14:00)
--- NOTE | 2018-06-19 14:39 | PRG ---
DATE OF SERVICE: 06/19/2018 CHIEF COMPLAINT: CVA. INTERVAL HISTORY: The patient is more alert today compared to yesterday's visit. He has completed his CT angiography and it did not show any specific occlusion other than left vertebral artery occlusion, and he has extensive atherosclerotic plaque of both carotid bulbs and proximal ICAs, but no stenosis was noted, and his echocardiogram was also completed. His EF was 40% to 50% with inferior hypokinesis. LABORATORY WORKUP: Today, white count 12.0, hemoglobin 14.8, hematocrit 45.2, platelet count 244. Sodium 139, potassium 4.2, chloride 108, bicarb 22, BUN 27, creatinine 1.29, glucose is 82. OBJECTIVE: VITAL SIGNS: Blood pressure 157/63, pulse 64, temperature 98.7. GENERAL APPEARANCE: He is comfortable, lying in bed with an O2 mask after expiratory breathing treatment. NEUROLOGICAL: He is oriented to person today and knows his date of age and date of . He is oriented to hospital. He is not oriented to date and time. Cranial nerve examination, he had some confusion in tracking. While performing extraocular movements, he is not tracking well vertically, but does track horizontally. No facial asymmetry. Tongue is midline. He still has some dysarthria. Motor examination, 5/5 strength in both upper and lower extremities. IMPRESSION: The patient is a 77-year-old man with multiple lacunar infarcts. At this time, his echocardiogram did not show any thrombus. Carotid CT angiogram does not show any occlusion other than left vertebral artery occlusion. The patient is on aspirin at this time. TREATMENT RECOMMENDATIONS: Agree with aspirin for stroke prophylaxis along with statin. The patient will need to see Dr. Cobb as outpatient. I suspect he might have some dementia due to the number of infarcts he has had, please consider rehab placement for improvement of his gait and speech. Call Neurology if you have any further questions. Job ID: [id number] [facility]
--- NOTE | 2018-06-19 14:58 | PQF ---
DATE: 06-19-18 ATTN: DR. BEATRIS Salazar OBI Please exercise your independent, professional judgment in responding to the clarification form. Clinical indicators are provided on the bottom of this form for your review Please check appropriate box(s): [ ] Encephalopathy: Etiology: [ ] Hypertensive [ ] Metabolic [ ] Toxic [ X ] Other (please specify) Due to acute CVA and possibly metabolic. [ ] Other diagnosis [ ] Unable to determine In addition, please specify: Present on Admission (POA): [X ] Yes [ ] No [ ] Unable to determine For continuity of documentation, please document condition throughout progress notes and discharge summary. Thank You. CLINICAL INDICATORS - SIGNS / SYMPTOMS / LABS ER: PT'S FAMILY REPORTS WHILE AT [facility] PT HAD A PERIOD DURING WHICH HE BEGAN ACTING STRANGELY AND REPORTS AFTER A CT SCAN THEY WERE TOLD IT WAS LIKELY A TIA. H&P: MALE WITH ALTERED MENTATION. HE IS LETHARGIC. CONSULT NOTE DR. CLAYTON 06-17-18: HE BECAME VERY UNSTEADY AND NOW IS VERY CONFUSED, HE IS CONFUSED AND IS UNCOOPERATIVE DURING MOST OF THE EXAM PN DR. SMITH 06-18-18: AGITATION AND MENTAL STATUS HAVE IMPROVED. ACUTE ENCEPHALOPATHY. DUE TO ACUTE CVA. DX/PLAN: ACUTE CVA, ACUTE ENCEPHALOPATHY, METABOLIC ACIDOSIS RISK FACTORS: PN DR. SMITH 06-18-18: DX/PLAN: ACUTE CVA, ACUTE ENCEPHALOPATHY, METABOLIC ACIDOSIS TREATMENTS: 06-17-18: NEUROLOGY CONSULT (This form is maintained as a part of the permanent medical record) 2015 [employer] All Rights Reserved DENISE [email or web address] Office: [phone] [facility], [place]
[2018-06-19] MEDS: Lisinopril 20 MG TAB PO SCH (21:14)
[2018-06-19] MEDS: Atorvastatin Calcium 40 MG TAB PO SCH (21:15)
[2018-06-19] MEDS: Haloperidol Lactate 5 MG/ML VIAL SLOW IVP PRN (21:15)
[2018-06-20] MEDS: Senokot S 8.6-50 MG TAB PO SCH ×3 (02:57→21:28)
[2018-06-20 05:55] LABS: Anion Gap 12 mmol/L (10-20); BUN (Urea Nitrogen) 26 mg/dL (8.4-25.7); Calc. Creatinine Clearance 60 mL/min (70-130); Calcium 9.3 mg/dL (7.8-10.44); Carbon Dioxide 23 mmol/L (23-31); Chloride 108 mmol/L (98-107); Estimated GFR-MDRD 52; Glucose 95 mg/dL (83-110); Potassium 4.3 mmol/L (3.5-5.1); Sodium 139 mmol/L (136-145)
[2018-06-20] MEDS ORDERED: Apixaban 2.5 MG TAB PO SCH (10:15)
[2018-06-20] MEDS: Lisinopril 20 MG TAB PO SCH ×2 (11:04→21:27)
[2018-06-20] MEDS: Carvedilol 25 MG TAB PO SCH ×2 (11:05→21:29)
[2018-06-20] MEDS: Spironolactone 25 MG TAB PO SCH (11:05)
[2018-06-20] MEDS: Aspirin 300 MG Suppository PR SCH (11:14)
[2018-06-20] MEDS: Aspirin 325 mg Enteric Coated Tablet PO SCH (11:15)
[2018-06-20] MEDS: Enoxaparin Sodium 40 MG/0.4 ML SYRINGE SC SCH (11:15)
--- NOTE | 2018-06-20 12:59 | PDOC.PN ---
- Subjective Encounter Start Date: 06/20/18 Encounter Start Time: 12:58 Subjective: Had agitation and confusion yesterday -: Feeling better todaay - Objective Resuscitation Status - Order Detail: 06/17/18 04:15 Resuscitation Status Routine Resuscitation Status: FULL: Full Resuscitation Vital Signs & Weight: Vital Signs (12 hours) Temp Pulse Resp BP BP Pulse Ox 06/20/18 12:00 97.4 F L 54 L 20 182/84 H 96 06/20/18 11:04 184/78 H 06/20/18 10:03 54 L 16 97 06/20/18 09:41 95 06/20/18 08:00 97.4 F L 58 L 20 161/90 H 95 06/20/18 06:26 59 L 16 98 06/20/18 04:00 98.5 F 59 L 20 134/62 98 Weight Admit Weight 197 lb 8 oz Weight 197 lb 8 oz Result Diagrams: 06/19/18 04:35 06/20/18 05:13 Phys Exam - Physical Examination HEENT: PERRLA Left eye ptosis noted Neck: no JVD, supple Respiratory: no rales, no rhonchi, clear to auscultation bilateral Cardiovascular: RRR Gastrointestinal: soft, non-tender, no distention, positive bowel sounds Musculoskeletal: no edema, pulses present conscious and alert, conversational. dysarthria noted. Moving all limbs. gait instability noted Dx/Plan (1) Acute CVA (cerebrovascular accident) Code(s): I63.9 - CEREBRAL INFARCTION, UNSPECIFIED Status: Acute Comment: Most likely embolization from carotid plaques. (2) Acute encephalopathy Code(s): G93.40 - ENCEPHALOPATHY, UNSPECIFIED Status: Acute Comment: Due to acute CVA. Improved. (3) Atherosclerosis of both carotid arteries Code(s): I65.23 - OCCLUSION AND STENOSIS OF BILATERAL CAROTID ARTERIES Status : Acute (4) Leucocytosis Code(s): D72.829 - ELEVATED WHITE BLOOD CELL COUNT, UNSPECIFIED Status: Acute Comment: Most likely related to steroid therapy. Trending down (5) Hyperglycemia Code(s): R73.9 - HYPERGLYCEMIA, UNSPECIFIED Status: Acute Comment: Due to steroid. resolved. (6) NSTEMI (non-ST elevated myocardial infarction) Code(s): I21.4 - NON-ST ELEVATION (NSTEMI) MYOCARDIAL INFARCTION Status: Acute Comment: Type 2. demand ischemia (7) Metabolic acidosis Code(s): E87.2 - ACIDOSIS Status: Acute Comment: Improved. (8) Acute systolic heart failure Code(s): I50.21 - ACUTE SYSTOLIC (CONGESTIVE) HEART FAILURE Status: Acute Comment: etiology unclear. ? due to NSTEMI (9) Acute worsening of stage 3 chronic kidney disease Code(s): N18.3 - CHRONIC KIDNEY DISEASE, STAGE 3 (MODERATE) Status: Acute Comment: Creat is trending down from 1.62 to 1.2 (10) CAD (coronary artery disease) Code(s): I25.10 - ATHSCL HEART DISEASE OF [place] CORONARY ARTERY W/O ANG PCTRS Status: Acute (11) BPH (benign prostatic hyperplasia) Code(s): N40.0 - BENIGN PROSTATIC HYPERPLASIA WITHOUT LOWER URINRY TRACT SYMP Status: Chronic (12) HTN (hypertension) Code(s): I10 - ESSENTIAL (PRIMARY) HYPERTENSION Status: Chronic Comment: Controlis still suboptimal - Plan Will add amlodipine 10 mg to lisinopril and coreg. -: Monitor vitals and renal function -: Continue PT/OT/AGRICULTURE MECHANIC -: For discharge to acute rehab. * .
[2018-06-20] MEDS ORDERED: Amlodipine 10 MG TAB PO SCH (13:00)
[2018-06-20] MEDS ORDERED: Lorazepam 1 MG TAB PO PRN (20:53)
[2018-06-20] MEDS: Apixaban 5 MG TAB PO SCH (21:28)
[2018-06-20] MEDS: Atorvastatin Calcium 40 MG TAB PO SCH (21:29)
[2018-06-21 05:57] LABS: #Basophils 0.1 thou/uL (0.0-0.2); #Eosinphils 0.6 thou/uL (0.0-0.7); #Lymphocytes 2.3 thou/uL (1.20-3.40); #Monocytes 1.1 thou/uL (0.11-0.59); #Neutrophils 6.8 thou/uL (1.40-6.50); %Basophils 0.9 % (0.0-1.0); %Eosinophils 5.5 % (0.0-10.0); %Lymphocytes 20.9 % (21.0-51.0); %Monocytes 9.9 % (0.0-10.0); %Neutrophils 62.8 % (42.0-75.0); Hemoglobin 15.2 g/dL (14.0-18.0); Mean Corpuscular HGB CONC 32.6 g/dL (32.0-36.0); Mean Corpuscular Hemoglobin 30.9 pg (27.0-31.0); Mean Corpuscular Volume 94.7 fL (78.0-98.0); Platelet Count 259 thou/uL (130-400); RBC Distribution Width 12.3 % (11.5-14.5); Red Blood Cell (RBC) Count 4.93 mill/uL (4.70-6.10); White Blood Cell (WBC) Count 10.9 thou/uL (4.8-10.8)
[2018-06-21 06:13] LABS: Anion Gap 12 mmol/L (10-20); BUN (Urea Nitrogen) 30 mg/dL (8.4-25.7); Calc. Creatinine Clearance 61 mL/min (70-130); Calcium 9.2 mg/dL (7.8-10.44); Carbon Dioxide 21 mmol/L (23-31); Chloride 109 mmol/L (98-107); Estimated GFR-MDRD 53; Glucose 104 mg/dL (83-110); Potassium 4.2 mmol/L (3.5-5.1); Sodium 138 mmol/L (136-145)
[2018-06-21] MEDS: Senokot S 8.6-50 MG TAB PO SCH ×2 (10:29→20:31)
[2018-06-21] MEDS: Spironolactone 25 MG TAB PO SCH (10:30)
[2018-06-21] MEDS: Apixaban 5 MG TAB PO SCH ×2 (10:30→20:30)
[2018-06-21] MEDS: Lisinopril 20 MG TAB PO SCH ×2 (10:30→20:30)
[2018-06-21] MEDS: Amlodipine 10 MG TAB PO SCH (10:32)
[2018-06-21] MEDS ORDERED: Carvedilol 6.25 MG TAB PO SCH (11:00)
[2018-06-21] MEDS ORDERED: Aspirin 81 mg Enteric Coated Tablet PO SCH (11:00)
[2018-06-21] MEDS: Carvedilol 25 MG TAB PO SCH ×2 (12:01→20:31)
--- NOTE | 2018-06-21 14:52 | PDOC.PN ---
- Subjective Encounter Start Date: 06/21/18 Encounter Start Time: 14:50 Subjective: feels better. care discussed w at bedside & she reports improvemnt -: in speech. no weakness.eyelid swelling slightly better -: RN reports bradycardia and BB held this am - Objective Resuscitation Status - Order Detail: 06/17/18 04:15 Resuscitation Status Routine Resuscitation Status: FULL: Full Resuscitation MAR Reviewed: Yes Vital Signs & Weight: Vital Signs (12 hours) Temp Pulse Resp BP BP Pulse Ox 06/21/18 14:12 56 L 16 96 06/21/18 11:59 163/72 H 06/21/18 11:50 97.9 F 65 16 150/67 H 97 06/21/18 10:44 52 L 16 96 06/21/18 10:32 57 L 06/21/18 10:30 137/62 06/21/18 07:44 97.5 F L 45 L 24 H 149/66 H 97 06/21/18 07:23 52 L 16 98 06/21/18 04:00 97.8 F 49 L 19 127/62 94 L Weight Admit Weight 197 lb 8 oz Weight 197 lb 8 oz I&O: 06/20/18 06/21/18 06/22/18 06:59 06:59 06:59 Intake Total 538 240 Balance 538 240 Result Diagrams: 06/21/18 05:24 06/21/18 05:24 Additional Labs: Laboratory Tests 06/16/18 06/16/18 06/16/18 16:12 19:43 22:34 Troponin I 0.202 H 0.148 H 0.131 H 06/17/18 03:17 Troponin I 0.131 H Phys Exam - Physical Examination Constitutional: NAD some confusion noted HEENT: PERRLA, moist MMs, sclera anicteric, oral pharynx no lesions left eyelid swelling Neck: no nodes, no JVD, supple, full ROM Respiratory: no wheezing, no rales, no rhonchi, clear to auscultation bilateral Cardiovascular: RRR, no significant murmur Gastrointestinal: soft, non-tender, no distention, positive bowel sounds Musculoskeletal: no edema mild dysarthria and left eyelid droop Psychiatric: normal affect, A&O x 3 Skin: no rash Dx/Plan (1) Acute CVA (cerebrovascular accident) Code(s): I63.9 - CEREBRAL INFARCTION, UNSPECIFIED Status: Acute Comment: Most likely embolization from carotid plaques. (2) Acute encephalopathy Code(s): G93.40 - ENCEPHALOPATHY, UNSPECIFIED Status: Acute Comment: Due to acute CVA. Improved. (3) NSTEMI (non-ST elevated myocardial infarction) Code(s): I21.4 - NON-ST ELEVATION (NSTEMI) MYOCARDIAL INFARCTION Status: Acute Comment: Type 2. demand ischemia (4) CAD (coronary artery disease) Code(s): I25.10 - ATHSCL HEART DISEASE OF [place] CORONARY ARTERY W/O ANG PCTRS Status: Acute (5) A-fib Code(s): I48.91 - UNSPECIFIED ATRIAL FIBRILLATION Status: Chronic Qualifiers: Atrial fibrillation type: paroxysmal Qualified Code(s): I48.0 - Paroxysmal atrial fibrillation (6) BPH (benign prostatic hyperplasia) Code(s): N40.0 - BENIGN PROSTATIC HYPERPLASIA WITHOUT LOWER URINRY TRACT SYMP Status: Chronic (7) HTN (hypertension) Code(s): I10 - ESSENTIAL (PRIMARY) HYPERTENSION Status: Chronic Comment: Controlis still suboptimal (8) h/o Left atrial thrombus Status: Chronic (9) Stenosis of left vertebral artery Code(s): I65.02 - OCCLUSION AND STENOSIS OF LEFT VERTEBRAL ARTERY Status: Chronic Comment: Pt and made aware of Dx. medical management only (10) CKD (chronic kidney disease) stage 3, GFR 30-59 ml/min Code(s): N18.3 - CHRONIC KIDNEY DISEASE, STAGE 3 (MODERATE) Status: Chronic - Plan plan discussed w/ family, respiratory therapy, incentive spirometry, out of bed/ ambulate, DVT proph w/SCDs reduce coreg due to Bradycardia. Norvasc started yesterday. may need -: additional meds for BP control.monitor ON. DC to rehab in am if BP better -: started on Eliquis for h/o A-fib & L Atrial thrombus.start low dose ASA -: add statin as well d/t CVA -: HD stable Otherwise * .renal Fx at baseline * am labs Review of Systems - Review of Systems Constitutional: negative: fever, chills, sweats, weakness, malaise, other ENT: negative: Ear Pain, Ear Discharge, Nose Pain, Nose Discharge, Nose Congestion, Mouth Pain, Mouth Swelling, Throat Pain, Throat Swelling, Other Respiratory: negative: Cough, Dry, Shortness of Breath, Hemoptysis, SOB with Excertion, Pleuritic Pain, Sputum, Wheezing Cardiovascular: negative: chest pain, palpitations, orthopnea, paroxysmal nocturnal dyspnea, edema, light headedness, other Gastrointestinal: negative: Nausea, Vomiting, Abdominal Pain, Diarrhea, Constipation, Melena, Hematochezia, Other Genitourinary: negative: Dysuria, Frequency, Incontinence, Hematuria, Retention , Other Musculoskeletal: negative: Neck Pain, Shoulder Pain, Arm Pain, Back Pain, Hand Pain, Leg Pain, Foot Pain, Other Neurological: Change in Speech. negative: Weakness, Numbness, Incoordination, Confusion, Seizures, Other - Medications/Allergies Allergies/Adverse Reactions: Allergies Allergy/AdvReac Type Severity Reaction Status Date / Time amoxicillin Allergy Intermediate Hives Verified 06/17/18 02:19 Medications: Current Medications Acetaminophen (Tylenol) 650 mg PO Q4H PRN PRN Reason: Headache/Fever/Mild Pain (1-3) Acetaminophen (Tylenol) 650 mg IA Q4H PRN PRN Reason: Headache/Fever/Mild Pain (1-3) Albuterol/Ipratropium (Duoneb) 3 ml NEB M2WV-PD [facility] Last Admin: 06/21/18 14:12 Dose: 3 ml Amlodipine Besylate (Norvasc) 10 mg PO DAILY [facility] Last Admin: 06/21/18 10:32 Dose: 10 mg Apixaban (Eliquis) 5 mg PO BID [facility] Last Admin: 06/21/18 10:30 Dose: 5 mg Aspirin (Ecotrin) 81 mg PO DAILY [facility] Atorvastatin Calcium (Lipitor) 40 mg PO HS [facility] Last Admin: 06/20/18 21:29 Dose: 40 mg Calcium Carbonate (Tums) 1,000 mg PO Q4H PRN PRN Reason: Heartburn or Indigestion Carvedilol (Coreg) 12.5 mg PO BID [facility] Haloperidol Lactate (Haldol) 2 mg SLOW IVP Q4H PRN PRN Reason: Agitation Last Admin: 06/19/18 21:15 Dose: 2 mg Hydralazine HCl (Apresoline) 10 mg SLOW IVP Q4H PRN PRN Reason: BP > 220/110 Lisinopril (Zestril) 20 mg PO BID [facility] Last Admin: 06/21/18 10:30 Dose: 20 mg Lorazepam (Ativan) 1 mg PO Q4H PRN PRN Reason: Anxiety/Agitation Last Admin: 06/20/18 21:28 Dose: 1 mg Mineral Oil/White Petrolatum (Eucerin Cream) 0 gm TOP BIDPRN PRN PRN Reason: Dry Skin Ondansetron HCl (Zofran Odt) 4 mg PO Q6H PRN PRN Reason: Nausea/Vomiting Ondansetron HCl (Zofran) 4 mg IVP Q6H PRN PRN Reason: Nausea/Vomiting Polyethylene Glycol (Miralax) 17 gm PO DAILY PRN PRN Reason: Constipation Senna/Docusate Sodium (Senokot S) 2 tab PO BID [facility] Last Admin: 06/21/18 10:29 Dose: 2 tab Sodium Chloride (Flush - Normal Saline) 10 ml IVF PRN PRN PRN Reason: Saline Flush Last Admin: 06/21/18 10:29 Dose: 10 ml Sodium Chloride (Flush - Normal Saline) 10 ml IVF PRN PRN PRN Reason: Saline Flush Spironolactone (Aldactone) 25 mg PO DAILY [facility] Last Admin: 06/21/18 10:30 Dose: 25 mg
[2018-06-21] MEDS: Atorvastatin Calcium 40 MG TAB PO SCH (20:30)
[2018-06-22 05:14] LABS: Anion Gap 12 mmol/L (10-20); BUN (Urea Nitrogen) 27 mg/dL (8.4-25.7); Calc. Creatinine Clearance 61 mL/min (70-130); Calcium 9.5 mg/dL (7.8-10.44); Carbon Dioxide 21 mmol/L (23-31); Chloride 110 mmol/L (98-107); Estimated GFR-MDRD 52; Glucose 104 mg/dL (83-110); Sodium 139 mmol/L (136-145)
[2018-06-22] MEDS: Amlodipine 10 MG TAB PO SCH (08:59)
[2018-06-22] MEDS: Spironolactone 25 MG TAB PO SCH (08:59)
[2018-06-22] MEDS: Lisinopril 20 MG TAB PO SCH (09:00)
[2018-06-22] MEDS ORDERED: Aspirin 81 mg Enteric Coated Tablet PO SCH (09:00)
[2018-06-22] MEDS: Apixaban 5 MG TAB PO SCH (09:00)
[2018-06-22] MEDS: Senokot S 8.6-50 MG TAB PO SCH (09:01)
[2018-06-22] MEDS: Carvedilol 25 MG TAB PO SCH (09:15)
[2018-06-22 16:04] VITALS: BP 149/68; TEMP 97.3
--- NOTE | 2018-06-23 16:18 | DIS ---
DATE OF ADMISSION: 06/16/2018 DATE OF DISCHARGE: 06/22/2018 DISCHARGE DIAGNOSES: 1. Acute cerebral infarction. 2. Acute encephalopathy due to acute cerebrovascular accident and metabolic factors. 3. Type 2 non-ST elevation myocardial infarction. 4. Metabolic acidosis. 5. Acute systolic heart failure. 6. Atherosclerosis of both carotid arteries. 7. Leukocytosis. 8. Hyperglycemia due to steroids. 9. Acute kidney injury. 10. Chronic kidney disease stage 3. 11. Coronary artery disease status post coronary artery bypass grafting. 12. Benign prostatic hypertrophy. 13. Hypertension. 14. Physical deconditioning. 15. Gait instability. CONSULTS: 1. Cardiology. 2. Neurology. HOSPITAL COURSE: A 77-year-old male with known history of coronary artery disease, peripheral vascular disease, CKD, who had presented to [facility] with acute onset of shortness of breath. The patient was treated with breathing treatment, steroid as well as diuretics. However, while still in the emergency room, patient acutely developed mental status changes as well as gait instability and dysarthria. Impression of acute CVA was made. CT done immediately was however negative, but CT angio of the head and neck showed occlusion of the cervical portion of the left vertebral artery as well as moderate stenosis about bilateral proximal internal carotid. The patient was subsequently admitted to this hospital for further evaluation and treatment. Hospital course was complicated by development of acute encephalopathy, agitation and restlessness, which was felt to be due to the acute CVA as well as metabolic component. The patient also had acute kidney injury and indeterminate troponins suggestive of type 2 NSTEMI. Cardiology and Neurology consults were obtained and patient was managed appropriately. He received physical and occupational therapy as well as speech therapy with improvement in general condition. He, however, was felt to be in need of further restorative therapy, hence was discharged to acute rehab for further restorative therapy. Echocardiogram done showed EF of 45. The patient was treated with diuretics with improvement. PHYSICAL EXAMINATION: VITAL SIGNS: Temperature 97.3, pulse 63, respiratory rate 16, SpO2 of 96% on room air. Blood pressure 149/68. GENERAL: Elderly-looking male in no obvious distress. Afebrile, anicteric, acyanotic. HEENT: Pupils are equal and reactive to light. Mild left ptosis noted. RESPIRATORY: Good air entry bilaterally with no obvious crackles or rhonchi. CARDIOVASCULAR: Regular rhythm and rate with normal heart sounds 1 and 2. GI: Abdomen is full, soft, nontender, nondistended with normal bowel sounds. EXTREMITIES: Grossly normal looking atraumatic with no edema or erythema. NEUROLOGIC: Conscious, alert, oriented x3 with appropriate mental status. The patient is moving all limbs. DISCHARGE CONDITION: Improved and stable. DISCHARGE MEDICATIONS: 1. MiraLAX 17 g daily. 2. Acetaminophen 650 mg p.o. q.4 hours p.r.n. for pain. 3. Amlodipine 10 mg daily. 4. Lipitor 80 mg at bedtime. 5. Coreg 25 mg p.o. b.i.d. 6. Plavix 75 mg daily. 7. Lisinopril 20 mg b.i.d. 8. Sennoside-docusate 2 tablets p.o. b.i.d. 9. Spironolactone 25 mg p.o. daily. FOLLOWUP: The patient is to follow up with the PCP on discharge from the acute rehab. He is also to keep appointment with data modeling specialist. This discharge took more than 38 minutes. Job ID: [id number]
== END 2018-06-22 19:01 | DRG 64 ==
LOC: ERS 14:06 → 2SE 18:44 → ERHOLD 22:50 → OBSVTOIN 22:50 → 2SE 06-17 00:48
PROVIDERS: ADMIT Internal Medicine; ATTEND Internal Medicine
DX: I63.81 Other cerebral infarction due to occlusion or stenosis of small artery (principal); I50.21 Acute systolic (congestive) heart failure; I21.A1 Myocardial infarction type 2; G93.41 Metabolic encephalopathy; I13.0 Hypertensive heart and chronic kidney disease with heart failure and stage 1 through stage 4 chronic kidney disease, or unspecified chronic kidney disease; N17.9 Acute kidney failure, unspecified; G81.91 Hemiplegia, unspecified affecting right dominant side; G93.49 Other encephalopathy; E87.2 Acidosis; I25.10 Atherosclerotic heart disease of native coronary artery without angina pectoris; R29.713 NIHSS score 13; Z95.1 Presence of aortocoronary bypass graft; I25.2 Old myocardial infarction; I48.91 Unspecified atrial fibrillation; N18.3 Chronic kidney disease, stage 3 (moderate); N40.0 Benign prostatic hyperplasia without lower urinary tract symptoms; K21.9 Gastro-esophageal reflux disease without esophagitis; Z79.82 Long term (current) use of aspirin; Z88.1 Allergy status to other antibiotic agents; Z87.891 Personal history of nicotine dependence; E66.9 Obesity, unspecified; Z68.30 Body mass index [BMI] 30.0-30.9, adult; H02.402 Unspecified ptosis of left eyelid; R29.810 Facial weakness; R47.1 Dysarthria and anarthria; R73.9 Hyperglycemia, unspecified; T38.0X5A Adverse effect of glucocorticoids and synthetic analogues, initial encounter; I65.23 Occlusion and stenosis of bilateral carotid arteries; I25.5 Ischemic cardiomyopathy; G47.33 Obstructive sleep apnea (adult) (pediatric); E78.2 Mixed hyperlipidemia; I65.02 Occlusion and stenosis of left vertebral artery; D72.829 Elevated white blood cell count, unspecified
CPT/HCPCS: 36415; 70450; 70496; 70498; 70551; 80048; 80053; 80061; 82550; 82553; 83735; 84484; 85025; 85610; 85730; 93306; 94640; 99285; J1630; J1650; J3486; J7620; Q9967

== ENCOUNTER 2018-11-21 10:10 | Outpatient (CLI) | payer MEDICARE, OTHER ==
--- NOTE | 2018-11-21 12:21 | RAD ---
CERVICAL SPINE RADIOGRAPH SERIES SIX VIEWS: History: Cervical fusion. Comparison: 11-16-16 FINDINGS: AP view of the cervical spine redemonstrates an anterior fusion plate with transvertebral body screw at C4, C5, and C6. No perihardware lucency. Disc prosthesis at C4-5 and C5-6. Predental space is normal. Cervical spine vertebral body heights appear to be maintained from C1 through C6. No evidence of frac ture. There is mild osteophyte formation. There does appear to be moderate change at C6-7. Evaluation of the C7 vertebral body and the cervicothoracic junction is limited. In the neutral position, there is straightening of the normal cervical lordosis. Upon extension and f lexion there is no abnormal motion. IMPRESSION: Straightening of the cervical spine which is presumed to be due to patient position or muscle spasm. There is no abnormal motion upon motion or extension. POS: OFF
== END 2018-11-21 10:11 | disposition home or self-care (01) ==
LOC: TBSIIMAG 10:10
PROVIDERS: ATTEND Neurological Surgery
DX: M50.30 Other cervical disc degeneration, unspecified cervical region (principal)
CPT/HCPCS: 72050

== ENCOUNTER 2018-12-19 15:04 | Outpatient (CLI) | payer MEDICARE, OTHER ==
--- NOTE | 2018-12-19 16:13 | RAD ---
CERVICAL SPINE RADIOGRAPH SERIES FOUR VIEW: 12/19/18 INDICATION: Neck stiffness, cervical disc degeneration. FINDINGS: Comparing to 11/21/18 exam, there is redemonstration of ACDF spanning C4 through C6, without interval hardware complication. Flexion and extension views are performed which reveal no evidence of abnormal translational motion. Neutral view reveals straightening of the cervical curvature without listhesis . There is multilevel moderate facet osteoarthritis. End plate degenerative changes with marginal ost eophyte formation redemonstrated, similar appearing. There is appropriate alignment of the lateral ma sses of C1. The imaged portions of the dens are intact. IMPRESSION: Postsurgical cervical spine without interval hardware complication, or evidence of abnormal translati onal motion. POS: Marie
== END 2018-12-19 15:05 | disposition home or self-care (01) ==
LOC: TBSIIMAG 15:04
PROVIDERS: ATTEND Neurological Surgery
DX: M50.30 Other cervical disc degeneration, unspecified cervical region (principal); Z98.890 Other specified postprocedural states
CPT/HCPCS: 72050